=== PATIENT | female | born 1975 | race Caucasian/White ===

== ENCOUNTER → 2018-06-17 13:30 | Outpatient (CLI) | payer MEDICAID, SELFPAY | PROVIDERS: Visit Provider Student in an Organized Health Care Education/Training Program | DX: E03.9 Hypothyroidism, unspecified (principal) | CPT/HCPCS: 36415; 84443 ==

== ENCOUNTER → 2019-04-27 12:23 | Outpatient (CLI) | payer MEDICAID, SELFPAY ==
[2019-04-27 12:47] LABS: Basophils # 0.1 K/mm3 (0-0.2); Eosinophils # 0.1 K/mm3 (0.0-0.4); Eosinophils % 1.4 % (0.1-12.0); Hematocrit 47.8 % (37.0-47.0); Hemoglobin 15.8 g/dL (12.2-16.2); Lymphocytes % 40.1 % (10-50); Mean Corpuscular HGB Conc 33.2 g/dL (31.8-35.4); Mean Corpuscular Hemoglobin 28.5 pg (27.0-31.2); Mean Platelet Volume 8.4 fl (7.4-10.4); Monocytes # 0.3 K/mm3 (0.1-1.0); Monocytes % 4.2 % (1.7-9.3); Neutrophils # 3.9 K/mm3 (1.8-7.8); Neutrophils % 53.3 % (37.0-80.0); Platelet Count 299 K/mm3 (142-424); Red Blood Count 5.56 M/mm3 (4.20-5.40); Red Cell Distribution Width 13.3 % (11.5-17.5); White Blood Count 7.4 K/mm3 (4.8-10.8)
[2019-04-27 15:31] LABS: Albumin Level 4.1 gm/dL (3.4-5.0); Blood Urea Nitrogen 9 mg/dL (7-18); Creatinine,Serum 0.79 mg/dL (0.55-1.02); Estimated Glomerular Filt Rate 79 ml/min (>60); GFR (African American) 95 ML/MIN (>60); HDL Cholesterol 45 mg/dL (29-89); Potassium 3.7 mmoL/L (3.5-5.1); Sodium 140 mmol/L (136-145)
[2019-04-27 15:32] LABS: Triiodothryronine (T3) Uptake 38 % (31-39)
[2019-04-27 16:11] LABS: Alanine Aminotransferase 20 U/L (12-78); Albumin/Globulin Ratio 1.3 (1.1-1.8); Alkaline Phosphatase 55 U/L (46-116); Anion Gap 19.7 mEq/L (5-15); Aspartate Amino Transferase 18 U/L (15-37); Bilirubin,Total 0.8 mg/dL (0.2-1.0); Calcium 9.1 mg/dL (8.5-10.1); Carbon Dioxide 22 mmol/L (21.0-32.0); Chloride 102 mmol/L (98-107); Chol/HDL Ratio 6.8 (1-3.5); Cholesterol 305 mg/dL (140-200); Free Thyroxine Index 3.8 ug/dL (5.93-13.13); Globulin 3.2 gm/dl (1.3-3.2); Glucose 94 mg/dL (74-106); LDL Cholesterol 231 mg/dL (0-130); Total Protein,Serum 7.3 gm/dL (6.4-8.2); Triglycerides 146 mg/dL (30-200); VLDL Cholesterol 29 mg/dL (0-40)
[2019-04-28 18:19] LABS: Thyroid Peroxidase Antibodies 233 IU/mL (0-34); Vitamin D 25 Hydroxy 25.5 ng/mL (30.0-100.0)
[2019-04-30 12:33] LABS: Thyroid Stimulating Immunoglob <0.10 IU/L (0.00-0.55)
== END ==
PROVIDERS: Visit Provider Physician Assistant
DX: E06.9 Thyroiditis, unspecified (principal); E55.9 Vitamin D deficiency, unspecified
CPT/HCPCS: 36415; 80053; 80061; 82652; 84436; 84443; 84445; 84479; 85025; 86376

== ENCOUNTER 2022-03-20 00:20 | Emergency (ER) | payer MEDICAID, SELFPAY ==
[2022-03-20 00:33] VITALS: BP 195/115; PULSE 111; RESP 18; TEMP 36.6; O2SAT 98; BMI 34.0
[2022-03-20 01:03] LABS: Basophils # 0.1 K/mm3 (0-0.2); Basophils % 1.2 % (0.1-2.0); Eosinophils # 0.2 K/mm3 (0.0-0.4); Eosinophils % 1.5 % (0.1-12.0); Hematocrit 44.3 % (37.0-47.0); Hemoglobin 14.8 g/dL (12.2-16.2); Lymphocytes % 30.5 % (10-50); Mean Corpuscular HGB Conc 33.5 g/dL (31.8-35.4); Mean Corpuscular Hemoglobin 28.5 pg (27.0-31.2); Mean Corpuscular Volume 84.9 fl (81-99); Monocytes # 0.5 K/mm3 (0.1-1.0); Monocytes % 4.8 % (1.7-9.3); Neutrophils % 62.1 % (37.0-80.0); Platelet Count 325 K/mm3 (142-424); Red Blood Count 5.21 M/mm3 (4.20-5.40); Red Cell Distribution Width 13.9 % (11.5-17.5); White Blood Count 9.7 K/mm3 (4.8-10.8)
[2022-03-20 01:09] LABS: Alanine Aminotransferase 19 U/L (12-78); Albumin Level 4.6 g/dl (3.5-5.0); Albumin/Globulin Ratio 1.3 (1.1-1.8); Alkaline Phosphatase 74 U/L (38-126); Anion Gap 12.2 mEq/L (5-15); Aspartate Amino Transferase 25 U/L (14-36); Bilirubin,Total 0.4 mg/dl (0.2-1.3); Blood Urea Nitrogen 14 mg/dl (7-17); Calcium 9.8 mg/dl (8.4-10.2); Carbon Dioxide 24 mmol/L (22.0-30.0); Chloride 105 mmol/L (98-107); Creatinine Clearance Estimated 127 mL/min (50-200); Estimated Glomerular Filt Rate 89 ml/min (>60); GFR (African American) 108 ML/MIN (>60); Globulin 3.5 g/dL (1.3-3.2); Glucose 124 mg/dl (74-100); Potassium 3.2 mmoL/L (3.5-5.1); Sodium 138 mmol/L (136-145); Total Protein,Serum 8.1 g/dl (6.3-8.2)
--- NOTE | 2022-03-20 01:28 | HMH.EDDENT ---
Discharge Plan Disposition Patient Disposition: Home, Self-Care Prescriptions Prescriptions: New clindamycin HCl 300 mg capsule 300 mg PO TID Qty: 30 0RF Referrals Follow up/Referrals: Marisol Uribe MD [Primary Care Provider] - See instructions Clinical Impressions Clinical Impression: Gingival abscess, Pain, dental Instructions Patient Instructions: DI for Dental Pain Discharge ED Provider: Cristi Lee Dental HPI General Chief complaint: Dental/Oral Stated complaint: Panic Attack,toothache Time Seen by Provider: 03/20/22 01:28 Mode of Arrival: Ambulatory Source of Information: Patient and Medical Record Limitations: No Limitations Description of Symptoms (Recalled from ER Triage Doc. by RN): Pt arrives pov c c/o tooth pain in bottom right jaw for prior 2 days. Patient states that she has a history of dental caries and needs to have her teeth pulled but has severe anxiety about physicians and dentists. Patient also is c/o anxiety but states that that is typical for her when she goes to the hospital. History of Present Illness HPI Narrative: increased dental pain over the last few days with hx of sig dental issues Onset (ago): day(s) Duration: intermittent Severity: moderate Context: history of dental caries and poor dental care Related Data Previous Rx's Medication Instructions Recorded clindamycin HCl 300 mg capsule 300 mg PO TID #30 caps 03/20/22 Allergies Allergy/AdvReac Type Severity Reaction Status Date / Time Penicillins [PENICILLINS] Allergy Severe UNABLE TO Unverified 03/25/17 14:55 BREATH sulfamethoxazole AdvReac Verified 03/20/22 01:32 [From Bactrim] trimethoprim [From Bactrim] AdvReac Verified 03/20/22 01:32 [facility] Disclaimer: The information contained in this section may have been updated after the patient was seen, as this information can be updated by other users. Social History Smoking Status: Never smoker alcohol intake: never current occupational status: employed Travel in the last 8 weeks: None ROS Obtained: Yes All systems reviewed & no additional complaints except as documented Physical Exam General General appearance: alert Head Head exam: normocephalic Eye Eye exam: Present PERRL and EOMI Expanded ENT Exam Teeth exam: Present dental caries and gingival swelling Neck Neck exam: Present trachea midline Respiratory Respiratory exam: Absent respiratory distress Cardiovascular Cardiovascular exam: Present regular rate Extremities Exam Extremities exam: Present full ROM Neurological Exam Neurological exam: Present alert, oriented X3 and CN II-XII intact Psychiatric Psychiatric exam: Present normal affect Skin Skin exam: Absent rash Medical Decision Making Medical Records Medical records reviewed: Yes I reviewed the patient's medical records. Randy Inquiry Pt receiving controlled substance: No Vital Signs: 03/20/22 00:33 Temperature 98 F Temperature Source Oral Pulse Rate [Apical] 111 H Respiratory Rate 18 Blood Pressure [Right Arm] 195/115 H Blood Pressure Mean [Right Arm] 141 Blood Pressure Source [Right Arm] Automatic Cuff Blood Pressure Position [Right Arm] Sitting 02 Sat by Pulse Oximetry 98 Oxygen Delivery Method Room Air Lab Data Lab results reviewed: Yes I reviewed the patient's lab results. Lab Results 03/20/22 00:50: WBC 9.7, RBC 5.21, Hgb 14.8, Hct 44.3, MCV 84.9, MCH 28.5, MCHC 33.5, RDW 13.9, Plt Count 325, MPV 9.0, Neut % (Auto) 62.1, Lymph % (Auto) 30.5, [place] % (Auto) 4.8, Eos % (Auto) 1.5, Baso % (Auto) 1.2, Neut # (Auto) 6.0, Lymph # (Auto) 3.0, [place] # (Auto) 0.5, Eos # (Auto) 0.2, Baso # (Auto) 0.1 03/20/22 00:50: Sodium 138, Potassium 3.2 L, Chloride 105, Carbon Dioxide 24, Anion Gap 12.2, BUN 14, Creatinine 0.70, Estimated Creat Clear 127, Estimated GFR 89, Est GFR ( Amer) 108, Glucose 124 H, Calcium 9.8, Total Bilirubin 0.4, AST 25, ALT 19, Alkaline Phosphatase 74, Total
[2022-03-20 01:41] VITALS: BP 171/100; PULSE 105; RESP 18; TEMP 36.6; O2SAT 97
== END 2022-03-20 02:06 | disposition home or self-care (01) ==
PROVIDERS: Emergency Provider Emergency Medicine; PCP Family Medicine
DX: K08.89 Other specified disorders of teeth and supporting structures (principal); R68.84 Jaw pain; K06.1 Gingival enlargement; F41.9 Anxiety disorder, unspecified; F41.0 Panic disorder [episodic paroxysmal anxiety]; Z88.0 Allergy status to penicillin; Z88.2 Allergy status to sulfonamides; Z88.8 Allergy status to other drugs, medicaments and biological substances
CPT/HCPCS: 80053; 85025; 99283; J0696; J2405

== ENCOUNTER → 2022-04-12 11:23 | Outpatient (CLI) | payer MEDICAID, SELFPAY ==
[2022-04-12 12:33] LABS: Basophils # 0.2 K/mm3 (0-0.2); Basophils % 2.4 % (0.1-2.0); Eosinophils # 0.3 K/mm3 (0.0-0.4); Eosinophils % 3.8 % (0.1-12.0); Hematocrit 44.9 % (37.0-47.0); Hemoglobin 14.6 g/dL (12.2-16.2); Lymphocytes # 2.3 K/mm3 (0.7-4.5); Lymphocytes % 35.6 % (10-50); Mean Corpuscular HGB Conc 32.4 g/dL (31.8-35.4); Mean Corpuscular Hemoglobin 27.9 pg (27.0-31.2); Mean Platelet Volume 8.7 fl (7.4-10.4); Monocytes # 0.3 K/mm3 (0.1-1.0); Monocytes % 4.7 % (1.7-9.3); Neutrophils # 3.5 K/mm3 (1.8-7.8); Neutrophils % 53.5 % (37.0-80.0); Platelet Count 354 K/mm3 (142-424); Red Blood Count 5.23 M/mm3 (4.20-5.40); Red Cell Distribution Width 13.8 % (11.5-17.5); White Blood Count 6.5 K/mm3 (4.8-10.8)
[2022-04-12 12:58] LABS: Chloride 105 mmol/L (98-107); Potassium 4.2 mmoL/L (3.5-5.1); Sodium 140 mmol/L (136-145)
[2022-04-12 13:00] LABS: Alanine Aminotransferase 26 U/L (12-78); Alkaline Phosphatase 61 U/L (38-126); Aspartate Amino Transferase 24 U/L (14-36); Bilirubin,Total 0.6 mg/dl (0.2-1.3); Blood Urea Nitrogen 8 mg/dl (7-17); Estimated Glomerular Filt Rate 89 ml/min (>60); GFR (African American) 108 ML/MIN (>60)
[2022-04-12 13:01] LABS: Albumin Level 4.4 g/dl (3.5-5.0); Albumin/Globulin Ratio 1.3 (1.1-1.8); Anion Gap 13.2 mEq/L (5-15); Calcium 9.2 mg/dl (8.4-10.2); Carbon Dioxide 26 mmol/L (22.0-30.0); Chol/HDL Ratio 6.9 (1-3.5); Cholesterol 264 mg/dl (140-200); Globulin 3.3 g/dL (1.3-3.2); Glucose 92 mg/dl (74-100); HDL Cholesterol 38 mg/dl (40-60); Total Protein,Serum 7.7 g/dl (6.3-8.2); Triglycerides 238 mg/dl (30-150); VLDL Cholesterol 48 mg/dL (0-40)
[2022-04-12 13:12] LABS: Direct LDL Cholesterol 150.97 mg/dL (100-129)
[2022-04-12 13:18] LABS: T4 (Thyroxine) 9.8 ug/dl (5.53-11.0)
== END ==
PROVIDERS: PCP Family Medicine; Visit Provider Family Medicine
DX: E06.3 Autoimmune thyroiditis (principal); E78.5 Hyperlipidemia, unspecified
CPT/HCPCS: 36415; 80053; 80061; 84436; 85025

== ENCOUNTER → 2022-04-23 15:27 | Outpatient (CLI) | payer MEDICAID, SELFPAY ==
--- NOTE | 2022-04-23 15:33 | MM_ITS ---
PROCEDURE INFORMATION: Exam: MG Bilateral Screening 3D Mammography Exam date and time: 04/23/2022 4:07 PM Age: 47 years old Clinical indication: Screening examination TECHNIQUE: Imaging protocol: Bilateral Screening tomosynthesis and 2D mammography including computer-aided detection (CAD) when performed. COMPARISON: No relevant prior studies available. FINDINGS: MAMMOGRAPHY: Breast composition: The breasts are almost entirely fatty. Mass: None. Architectural distortion: None. Calcifications: No suspicious calcifications. Asymmetric density: None. Skin thickening: None. Axillary adenopathy: None. IMPRESSION: No mammographic evidence of malignancy. Annual screening is recommended unless otherwise clinically indicated. ASSESSMENT: BI-RADS Category 1: Negative
--- NOTE | 2022-04-23 15:34 | US_ITS ---
FINAL REPORT TECHNIQUE: Sonographic images of the thyroid gland were obtained in the longitudinal and transverse planes. CLINICAL HISTORY: AUTOIMMUNE THYROIDITIS, hx of lucas, FINDINGS: The right lobe measures 6.1 x 2.7 x 2.5 cm. The right lobe is enlarged and heterogeneous. There is a 1.1 cm nodule in the upper pole which is wider than it is tall, TI-RADS 4. There are several colloidal cysts. There is an isoechoic nodule deep within the inferior lobe measuring 2.6 cm. The left lobe measures 6.0 x 2.9 x 2.5 cm. The left lobe is diffusely heterogeneous with multiple small colloid cysts. There is a 1 cm hypoechoic nodule in the mid left lobe. The isthmus measures 5 mm. This is normal. There is a 6 mm hypoechoic nodule in the isthmus. IMPRESSION: Enlarged heterogeneous thyroid with bilateral TI-RADS 4 nodules. Base on size, follow-up is recommended. Reviewed, Interpreted and Dictated by Tresa Romo MD Transcribed by Velma Carias Authenticated and [facility]
== END ==
PROVIDERS: PCP Family Medicine; Visit Provider Family Medicine
DX: Z12.31 Encounter for screening mammogram for malignant neoplasm of breast (principal); E06.3 Autoimmune thyroiditis
CPT/HCPCS: 76536; 77063; 77067

== ENCOUNTER 2022-06-01 20:12 | Emergency (ER) | payer MEDICAID, SELFPAY ==
[2022-06-01] VITALS (7 sets, daily range): BP systolic 152–216; BP diastolic 87–132; PULSE 88–105; RESP 16–20; TEMP 36.8–36.9; O2SAT 97–100; BMI 29.2; BMI 34.0
[2022-06-01 20:27] LABS: Microscopic, Urine URINE MICROSCOPIC (MICROSCOPIC)
[2022-06-01 20:29] LABS: Appearance,Urine CLOUDY (Clear); Blood, Urine 3+ (Negative); Color,Urine RED (Yellow); Glucose,Urine (UA) Negative (Negative); Ketones,Urine TRACE (Negative); Leukocyte Esterase,Urine TRACE (Negative); Nitrate,Urine POSITIVE (Negative); PH,Urine 5.5 (5.0-8.5); Protein,Urine 1+ (Negative); Specific Gravity, Urine >= 1.030 (1.005-1.030)
[2022-06-01 20:30] LABS: Urine Pregnancy, HCG Qual. Negative (Negative)
[2022-06-01 20:32] LABS: Bilirubin,Urine Negative (Negative)
[2022-06-01 20:43] LABS: Basophils # 0.2 K/mm3 (0-0.2); Eosinophils # 0.2 K/mm3 (0.0-0.4); Eosinophils % 2.5 % (0.1-12.0); Hematocrit 43.2 % (37.0-47.0); Hemoglobin 14.8 g/dL (12.2-16.2); Lymphocytes % 44.5 % (10-50); Mean Corpuscular HGB Conc 34.2 g/dL (31.8-35.4); Mean Corpuscular Hemoglobin 28.6 pg (27.0-31.2); Mean Corpuscular Volume 83.5 fl (81-99); Mean Platelet Volume 8.3 fl (7.4-10.4); Monocytes # 0.3 K/mm3 (0.1-1.0); Monocytes % 3.6 % (1.7-9.3); Neutrophils # 4.2 K/mm3 (1.8-7.8); Neutrophils % 47.4 % (37.0-80.0); Platelet Count 371 K/mm3 (142-424); Red Blood Count 5.18 M/mm3 (4.20-5.40); Red Cell Distribution Width 14.1 % (11.5-17.5); White Blood Count 8.9 K/mm3 (4.8-10.8)
[2022-06-01 20:43] LABS: Bacteria,Urine 1+ /lpf; RBC,Urine TNTC #/hpf (0-3); Squamous Epithelial Cell,Urine Occasional #/hpf (0-5)
[2022-06-01 21:01] LABS: Alanine Aminotransferase 26 U/L (12-78); Albumin Level 4.7 g/dl (3.5-5.0); Albumin/Globulin Ratio 1.3 (1.1-1.8); Alkaline Phosphatase 58 U/L (38-126); Anion Gap 6.5 mEq/L (5-15); Aspartate Amino Transferase 30 U/L (14-36); Bilirubin,Total 0.6 mg/dl (0.2-1.3); Blood Urea Nitrogen 9 mg/dl (7-17); Calcium 9.1 mg/dl (8.4-10.2); Carbon Dioxide 25 mmol/L (22.0-30.0); Chloride 109 mmol/L (98-107); Creatinine Clearance Estimated 111 mL/min (50-200); Estimated Glomerular Filt Rate 77 ml/min (>60); GFR (African American) 93 ML/MIN (>60); Globulin 3.6 g/dL (1.3-3.2); Glucose 122 mg/dl (74-100); Potassium 3.5 mmoL/L (3.5-5.1); Sodium 137 mmol/L (136-145); Total Protein,Serum 8.3 g/dl (6.3-8.2)
--- NOTE | 2022-06-01 21:06 | HMH.EDUROGF ---
Discharge Plan Disposition Patient Disposition: Home, Self-Care Chief Complaint: Vaginal Bleeding Prescriptions Prescriptions: No Action clindamycin HCl 300 mg capsule 300 mg PO TID Qty: 30 0RF Referrals Follow up/Referrals: Marisol Uribe MD [Primary Care Provider] - See instructions Clinical Impressions Clinical Impression: Dysfunctional uterine bleeding Instructions Patient Instructions: DI for Vaginal Bleeding Discharge ED Provider: Rosa (ED),Cristi Garcia Female Urogenital HPI General Chief complaint: Vaginal Bleeding Stated complaint: Bleeding fr Vag Time Seen by Provider: 06/01/22 21:06 Mode of Arrival: Ambulatory Source of Information: Patient and Medical Record Limitations: No Limitations Description of Symptoms (Recalled from ER Triage Doc. by RN): Pt arrives to er via private vehicle c c/o vaginal bleeding. patient states that she was seen at on Friday for an elevated pulse and received a cardiac workup. At that time she states that she received a positive test. Patient states that she had baginal bleeding at that time and thought that she was menstrating. States that her had a vascectomy 4 years ago. Pt states that since then she has continued bleeding and has been passing clots. States that she passed a large clot 45 minutes ago and was afraid she was losing too much blood. History of Present Illness HPI Narrative: pt with vaginal bleeding - had recent visit to with pos preg test a few days ago- pt with no syncope - reports has elevated bp when in medical setting Complaint: vaginal bleeding Onset (ago): hour(s) Severity: moderate Duration: intermittent : Unknown Related Data Previous Rx's Medication Instructions Recorded clindamycin HCl 300 mg capsule 300 mg PO TID #30 caps 03/20/22 Allergies Allergy/AdvReac Type Severity Reaction Status Date / Time Penicillins [PENICILLINS] Allergy Severe UNABLE TO Verified 03/20/22 01:40 BREATH sulfamethoxazole AdvReac Verified 03/20/22 01:40 [From Bactrim] trimethoprim [From Bactrim] AdvReac Verified 03/20/22 01:40 [facility] Disclaimer: The information contained in this section may have been updated after the patient was seen, as this information can be updated by other users. Social History (Updated 03/20/22 @ 01:34 by Cristi Lee MD) Smoking Status: Never smoker alcohol intake: never current occupational status: employed Travel in the last 8 weeks: None ROS Obtained: Yes All systems reviewed & no additional complaints except as documented Physical Exam General General appearance: alert Head Head exam: normocephalic Eye Eye exam: Present PERRL and EOMI ENT ENT exam: Present mucous membranes moist Neck Neck exam: Present trachea midline Respiratory Respiratory exam: Absent respiratory distress Cardiovascular Cardiovascular exam: Present regular rate Abdominal Exam Abdominal exam: Present soft Extremities Exam Extremities exam: Present full ROM Neurological Exam Neurological exam: Present alert, oriented X3 and CN II-XII intact; Absent motor sensory deficit Psychiatric Psychiatric exam: Present normal affect Skin Skin exam: Absent rash Medical Decision Making Medical Records Medical records reviewed: Yes I reviewed the patient's medical records. Randy Inquiry Pt receiving controlled substance: No Vital Signs: 06/01/22 20:36 06/01/22 20:19 Temperature 98.3 F Temperature Source Oral Pulse Rate [Apical] 105 H Respiratory Rate 16 Blood Pressure [Orthostatic Lying Right Arm] 202/100 H Blood Pressure [Orthostatic Sitting] 216/132 H Blood Pressure [Orthostatic Standing] 204/115 H Blood Pressure [Right Arm] 204/115 H Blood Pressure Mean [Right Arm] 144 Blood Pressure Source [Right Arm] Manual Cuff/ Auscultation Blood Pressure Position [Right Arm] Sitting 02 Sat by Pulse Oximetry 98 Oxygen Delivery Method Room Air Lab Data La
[2022-06-01 21:12] LABS: HCG Qualitative, Serum Negative (Negative)
--- NOTE | 2022-06-01 21:21 | CT_ITS ---
PROCEDURE INFORMATION: Exam: CT Abdomen And Pelvis Without Contrast Exam date and time: 06/01/2022 9:43 PM Age: 47 years old Clinical indication: Other: Vaginal bleeding TECHNIQUE: Imaging protocol: Computed tomography of the abdomen and pelvis without contrast. Radiation optimization: All CT scans at this facility use at least one of these dose optimization techniques: automated exposure control; mA and/or kV adjustment per patient size (includes targeted exams where dose is matched to clinical indication); or iterative reconstruction. REPORTING DATA: Count of CT and Cardiac NM exams in prior 12 months: This patient has received 0 known CTs and 0 known cardiac nuclear medicine studies in the 12 months prior to the current study. COMPARISON: PTV US PELVIS-TRANSVAGINAL ONLY 02/22/2016 2:57 PM FINDINGS: Lungs: The lung bases are clear. No pleural effusion. Liver: Unremarkable. No mass. Gallbladder and bile ducts: Status post cholecystectomy. No ductal dilation. Pancreas: Unremarkable. Spleen: Multiple punctate scattered splenic calcifications. Adrenal glands: Unremarkable. Kidneys and ureters: Vague 1 cm rounded hypodensity of the right kidney, probable cyst. No renal mass or hydronephrosis. No urinary tract stone. Stomach and bowel: Unremarkable. No obstruction. No mucosal thickening. Appendix: The appendix is identified and is normal. Intraperitoneal space: No abnormal pelvic mass or fluid collection. decompressed and unremarkable. Retroperitoneal space: No bulky lymphadenopathy. Vasculature: Unremarkable. No abdominal aortic aneurysm. Lymph nodes: Unremarkable. No enlarged lymph nodes. Urinary bladder: The urinary bladder is Reproductive: The uterus is mildly enlarged and somewhat globular in appearance with smooth margins. Bones/joints: Unremarkable. No acute osseous abnormality. Soft tissues: Unremarkable. IMPRESSION: No acute findings. COMMENTS: Consistent with the [employer]'s Incidental Findings Committee white paper (J Am Kimmy Radiol 2018): Any incidental renal lesion less than 1 cm or classified as too small to characterize, or any incidental cystic renal lesion characterized as simple-appearing, is likely benign. No follow-up imaging is recommended for these lesions per consensus recommendations based on imaging criteria.
--- NOTE | 2022-06-01 21:28 | PC.NURSE ---
Radiology at bedside to take pt to CT scan, however she is now refusing to have the CT scan. Stating I just don't feel conformable to have the contrast right now and I will see my regular OB on Friday . notified.
[2022-06-01 21:29] LABS: HCG,Quantitative < 2 mIU/ml (0-5.42)
[2022-06-01 22:27] LABS: T4 (Thyroxine) 11.1 ug/dl (5.53-11.0)
[2022-06-01 22:41] LABS: Thyroid Stimulating Hormone 6.51 uIU/mL (0.465-4.68)
== END 2022-06-01 22:58 | disposition home or self-care (01) ==
PROVIDERS: Emergency Provider Emergency Medicine; PCP Family Medicine
DX: N93.9 Abnormal uterine and vaginal bleeding, unspecified (principal)
CPT/HCPCS: 74176; 80053; 81001; 81025; 84436; 84443; 84702; 84703; 85025; 99285

== ENCOUNTER 2024-05-25 09:00 | Outpatient (CLI) | payer MEDICAID, SELFPAY ==
[2024-05-25 10:13] LABS: Basophils # 0.1 K/mm3 (0-0.2); Basophils % 1.3 % (0.1-2.0); Eosinophils # 0.1 K/mm3 (0.0-0.4); Eosinophils % 2.2 % (0.1-12.0); Hematocrit 42.1 % (37.0-47.0); Hemoglobin 13.7 g/dL (12.2-16.2); Lymphocytes # 2.2 K/mm3 (0.7-4.5); Lymphocytes % 35.3 % (10-50); Mean Corpuscular HGB Conc 32.5 g/dL (31.8-35.4); Mean Corpuscular Hemoglobin 27.1 pg (27.0-31.2); Mean Corpuscular Volume 83.2 fl (81-99); Mean Platelet Volume 11.3 fl (7.4-10.4); Monocytes # 0.4 K/mm3 (0.1-1.0); Monocytes % 6.1 % (1.7-9.3); Neutrophils # 3.4 K/mm3 (1.8-7.8); Neutrophils % 54.6 % (37.0-80.0); Platelet Count 383 K/mm3 (142-424); Red Blood Count 5.06 M/mm3 (4.20-5.40); Red Cell Distribution Width 13.9 % (11.5-17.5); White Blood Count 6.3 K/mm3 (4.8-10.8)
[2024-05-25 10:32] LABS: Albumin Level 4.6 g/dl (3.5-5.0)
[2024-05-25 10:33] LABS: Chloride 102 mmol/L (98-107); Potassium 4.2 mmoL/L (3.5-5.1); Sodium 138 mmol/L (136-145)
[2024-05-25 10:35] LABS: Alanine Aminotransferase 23 U/L (12-78); Alkaline Phosphatase 67 U/L (38-126); Anion Gap 12.2 mEq/L (5-15); Aspartate Amino Transferase 27 U/L (14-36); Bilirubin,Total 0.4 mg/dl (0.2-1.3); Blood Urea Nitrogen 8 mg/dl (7-17); Carbon Dioxide 28 mmol/L (22.0-30.0); Estimated Glomerular Filt Rate 76 ml/min (>60); GFR (African American) 92 ML/MIN (>60)
[2024-05-25 10:36] LABS: Albumin/Globulin Ratio 1.5 (1.1-1.8); Calcium 9.6 mg/dl (8.4-10.2); Chol/HDL Ratio 8.3 (1-3.5); Cholesterol 291 mg/dl (140-200); Glucose 96 mg/dl (74-100); HDL Cholesterol 35 mg/dl (40-60); Iron 132 ug/dL (37-170); Total Protein,Serum 7.6 g/dl (6.3-8.2); Triglycerides 291 mg/dl (30-150); VLDL Cholesterol 58 mg/dL (0-40)
[2024-05-25 10:48] LABS: Direct LDL Cholesterol 180.58 mg/dL (100-129); Total Iron Binding Capacity 361 ug/dL (265-497)
[2024-05-25 10:56] LABS: Free T4 (Free Thyroxine) 0.95 ng/dl (0.78-2.19)
[2024-05-25 11:13] LABS: Ferritin 8.08 ng/ml (6.24-137)
[2024-05-25 15:15] LABS: Hemoglobin A1C 4.8 % (4.0-6.0)
[2024-05-26 08:13] LABS: Triiodothyronine (T3) Total 117 ng/dL (71-180)
== END 2024-05-25 23:59 | disposition home or self-care (01) ==
PROVIDERS: PCP Family Medicine Addiction Medicine; Visit Provider Family Medicine Addiction Medicine
DX: Z01.89 Encounter for other specified special examinations (principal); Z79.899 Other long term (current) drug therapy
CPT/HCPCS: 36415; 80053; 80061; 82728; 83036; 83540; 83550; 84439; 84443; 84480; 85025

== ENCOUNTER 2024-06-01 13:05 | Outpatient (CLI) | payer MEDICAID, SELFPAY ==
[2024-06-01 14:27] LABS: 25-OH Vitamin D, Total 35.9 ng/mL (30-100)
[2024-06-01 14:50] LABS: HIV Combo NEGATIVE (Negative)
[2024-06-01 15:00] LABS: Vitamin B12 400 pg/mL (239-931)
[2024-06-01 15:20] LABS: Folate > 20.00 ng/mL
[2024-06-09 11:18] LABS: Miscellaneous Test SCANNED IMAGE
== END 2024-06-01 23:59 | disposition home or self-care (01) ==
LOC: LAB 13:06
PROVIDERS: PCP Family Medicine Addiction Medicine; Visit Provider Family Medicine Addiction Medicine
DX: Z79.899 Other long term (current) drug therapy (principal); Z01.89 Encounter for other specified special examinations
CPT/HCPCS: 36415; 82306; 82607; 82746; 86704; 86706; 86708; 86803; 87340; 87389

== ENCOUNTER 2024-09-05 05:38 | Emergency (ER) | payer MEDICAID, SELFPAY ==
[2024-09-05 05:52] VITALS: BP 173/121; PULSE 117; RESP 20; TEMP 36.7; O2SAT 100; BMI 34.9
--- NOTE | 2024-09-05 05:53 | ED_ITS ---
Discharge Plan Disposition Patient Disposition: Home, Self-Care Condition: Good Prescriptions Prescriptions: New tranexamic acid 650 mg tablet 1,300 mg PO TID 5 Days Qty: 30 0RF No Action clindamycin HCl 300 mg capsule 300 mg PO TID Qty: 30 0RF Referrals Follow up/Referrals: lorrie [Other] - See instructions Flor Albert DO [Staff Physician, [employer]BLER] - See instructions Referral Note: 7cm uterine fibroid, heavy AUB Nikia Berry APRN [Primary Care Provider, Medical] - See instructions Activity Restrictions/Add. Instructions Additional Instructions/Restrictions: You were evaluated in the ER and are appropriate for discharge at this time. Take the prescribed tranexamic acid as directed. nursing support worker this medication as soon as it is ready and start taking it today. Call Dr. Albert's office first thing Friday and schedule an appointment for Friday. If they give you any pushback, tell them that Dr. Albert specifically wanted to see you on Friday to get scheduled for hysterectomy. They should be able to verify this with her. Continue monitoring your bleeding and return to the ER with any new, worsening, or otherwise concerning symptoms as discussed. 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 Patient reports for the last 2 years she has had issues with abnormal periods and they have been getting progressively worse. She states initially they started off just abnormal however they have progressed to being very heavy. She states her periods are so heavy that the first 2 days she usually has to stay home. She states they come every 28 days and usually last about 7 days, however her last period lasted 12 days and only ended approximately 2 weeks ago, her current period started 3 days ago. She states for the last 24 hours she has been saturating a super absorbent maxi pad at least once an hour. She is also passing large clots. She states she has been being followed by [facility] for this and had an ultrasound approximately 1 week ago demonstrated a large uterine fibroid. She states she was told to take 600 mg of ibuprofen 4 times a day during her.. She states she is doing that but it has not helped her bleeding. Patient also reports she is very anxious and is on the verge of having a panic attack. She states she is currently bleeding extremely heavy and is worried because she has been told she has been getting anemic from her bleeding. Patient has no recent symptoms of illness, no nausea, vomiting, or diarrhea, no dysuria, she has abdominal cramping especially before she passed a large clot but otherwise she has no other associated symptoms. Patient denies any recent rough sex or vaginal injury. She reports she believes her last Pap smear was a few months ago, she has never had a positive Pap smear. Related Data Previous Rx's ?Medication ?Instructions ?Recorded clindamycin HCl 300 mg capsule 300 mg PO TID #30 caps 03/20/22 tranexamic acid 650 mg tablet 1,300 mg (2 x 650 mg) PO TID 5 09/05/24 days #30 tabs Allergies Allergy/AdvReac Type Severity Reaction Status Date / Time Penicillins (PENICILLINS) Allergy Severe UNABLE TO Verified 03/20/22 01:40 BREATH sulfamethoxazole (From AdvReac Verified 03/20/22 01:40 Bactrim) trimethoprim (From Bactrim) AdvReac Verified 03/20/22 01:40 [facility] Disclaimer: The information contained in this section may have been updated after the patient was seen, as this information can be updated by other users. Social History (Updated 03/20/22 @ 01:34 by Cristi Lee MD) Smoking Status: Never smoker alcohol intake: never current occupational status: employed Travel in the last 8 weeks?: None Have you lived/traveled outside US in past 30 days?: No Contact w/someone who lives/traveled outside US past 30 days?: No Exposure to someone with infectious disease in past 14 days?: No Do you have a fever (greater than 100.4 F or 38 C)?: No Have you tested positive for COVID-19?: No Exposed to someone with COVID-19 in past 14 days?: No Do you have a sore throat?: No Do you have a cough?: No Do you have any weakness?: No Do you have any diarrhea?: No Are you experiencing any unusual bleeding?: No Do you have any muscle aches/pain?: No Do you have any abdominal pain?: No Are you experiencing loss of taste or smell?: No ROS Obtained: Yes Systems reviewed as appropriate & no additional complaints except as documented per HPI Physical Exam General General appearance: alert, in no apparent distress and obese Head Head exam: atraumatic and normocephalic Eye Eye exam: Present PERRL and EOMI ENT ENT exam: Present mucous membranes moist Neck Neck exam: Present normal inspection and full ROM Chest Chest inspection: Present symmetric chest wall rise Respiratory Respiratory exam: Present normal lung sounds bilaterally; Absent respiratory distress, wheezes or stridor Cardiovascular Cardiovascular exam: Present normal rhythm and tachycardia Abdominal Exam Abdominal exam: Present soft and tenderness (very mild low suprapubic); Absent distention, guarding or rebound External exam: Present normal external exam Speculum exam: Present vaginal bleeding (Pooling blood in the vaginal vault with clots) and other (No evidence of injury to the vagina cervix unremarkable though active bleeding limited visualization); Absent laceration Bimanual exam: Present normal bimanual exam Extremities Exam Extremities exam: Present full ROM Neurological Exam Neurological exam: Present alert and oriented X3; Absent motor sensory deficit Psychiatric Psychiatric exam: Present normal affect and normal mood Skin Skin exam: Present warm and dry Medical Decision Making Medical Records Medical records reviewed: Yes I reviewed the patient's medical records. Screening: Per USPSTF and CDC recommendations, given the prevalence of disease in our region, it is our hospital?s policy to screen for HIV and viral Hepatitis for all patients aged 18 and over and those with ongoing risk factors. MR Comment: Patient was seen in our ER in 2022 with dysfunctional uterine bleeding at that time after having been told she had a positive test at a different facility. hCG at that time was negative. Most recent labs from May 2024 do not demonstrate any evidence of anemia, iron studies reassuring. Randy Inquiry Pt receiving controlled substance: No Vital Signs: 09/05/24 05:52 09/05/24 06:00 09/05/24 06:46 Temperature 98.1 F Temperature Source Oral Pulse Rate 111 H 95 H Pulse Rate [Left] 117 H Respiratory Rate 20 Blood Pressure 168/102 H 176/94 H Blood Pressure [Right Arm] 173/121 H Blood Pressure Mean [Right Arm] 138 Blood Pressure Source [Right Arm] Automatic Cuff Blood Pressure Position [Right Arm] Supine 02 Sat by Pulse Oximetry 100 99 98 Oxygen Delivery Method Room Air Lab Data Lab Results 09/05/24 05:47: WBC 10.3, RBC 4.95, Hgb 13.6, Hct 41.2, MCV 83.2, MCH 27.5, MCHC 33.0, RDW 14.6, Plt Count 391, MPV 10.9 H, Neut % (Auto) 54.6, Lymph % (Auto) 35.9, [place] % (Auto) 6.1, Eos % (Auto) 2.2, Baso % (Auto) 0.9, Neut # (Auto) 5.6, Lymph # (Auto) 3.7, [place] # (Auto) 0.6, Eos # (Auto) 0.2, Baso # (Auto) 0.1, PT 10.6, INR 0.95, APTT 23.8, Sodium 139, Potassium 3.7, Chloride 107, Carbon Dioxide 25, Anion Gap 10.7, BUN 10, Creatinine 0.70, Estimated Creat Clear 127, Estimated GFR 89, Est GFR ( Amer) 107, Glucose 120 H, Calcium 9.6, Iron 41, TIBC 360, Iron Saturation 11.21686 L, Ferritin 11.4 D, Total Bilirubin 0.3, AST 23, ALT 21, Alkaline Phosphatase 65, Total Protein 7.9, Albumin 4.6, G lobulin 3.3 H, Albumin/Globulin Ratio 1.4, TSH 10.20 H, Free T4 0.87, Serum HCG, Qual Negative 09/05/24 06:27: Urine Color Red, Urine Appearance Cloudy, Urine pH 6.5, Ur Specific [place] <= 1.005, Urine Protein 2+ A, Urine Glucose (UA) Negative, Urine Ketones Trace, Urine Blood 3+ A, Urine Nitrate Positive A, Urine Bilirubin Negative, Urine Urobilinogen 1.0, Ur Leukocyte Esterase 1+ A, Urine RBC Tntc, Urine WBC 3-5, Ur Squamous Epith Cells 3-5, Amorphous Sediment 1+, Urine Bacteria 2+ 09/05/24 05:47 09/05/24 05:47 Orders (Tests/Meds): ORDERS Category Date Time Status Type and Screen Stat BBK 09/05/24 06:03 Results CBC w/Auto Diff [Complete Blood Count Auto Diff] Stat Lab 09/05/24 05:47 Completed CMP [Comprehensive Metabolic Panel] Stat Lab 09/05/24 05:47 Completed Ferritin Stat Lab 09/05/24 05:47 Completed Free T4 (Free Thyroxine) Stat Lab 09/05/24 05:47 Completed HCG Qualitative, Serum Stat Lab 09/05/24 05:47 Completed Iron and TIBC Stat Lab 09/05/24 05:47 Completed PT INR [Prothrombin Time INR] Stat Lab 09/05/24 05:47 Completed PTT [Activated Partial Thrombo Time] Stat Lab 09/05/24 05:47 Completed TSH [Thyroid Stimulating Hormone] Stat Lab 09/05/24 05:47 Completed Urinalysis and Microscopic Stat Lab 09/05/24 06:27 Completed Urine Culture Stat Micro 09/05/24 06:27 Received Medical Decision Narrative: In summary, this 49-year-old female with comorbidities described in the HPI which may not be at goal therapy presents to the emergency department today with heavy vaginal bleeding. On initial evaluation patient is mildly tachycardic but otherwise hemodynamically stable, afebrile, she has brisk capillary refill and 2+ pulses, no peripheral edema, very mild low suprapubic discomfort with palpation but no rebound or guarding, speculum exam demonstrates pooling blood in the vaginal vault with clots but unremarkable bimanual and cervical exam, remainder of exam benign. Differential diagnosis includes but is not limited to abnormal uterine bleeding, uterine fibroids, coagulopathy, anemia, iron deficiency, malignancy, among others. Ruling out the most morbid conditions drove my assessment. I ordered serum labs. I explained to the patient I want to obtain a CT abdomen pelvis for further evaluation of intra-abdominal contents, she reports she has had issues with contrast previously though she does not recall what they were. She was able to access her transvaginal ultrasound results from [facility] from 08/16/24. Results demonstrate large submucosal uterine fibroid at the posterior aspect measuring approximately 7 cm, endometrium 13 mm, unremarkable ovaries. Radiology report indicates that the fibroid is unchanged from imaging in April 2024. With these very recent transvaginal ultrasound results, I do not believe further imaging is indicated at this time. No medications were initially administered in the ER. Labs reviewed by me demonstrate no leukocytosis or anemia, hemoglobin 13.6, platelets normal at 391, PT/INR and APTT normal, CMP nonactionable, low iron saturation but normal TIBC, free T4 normal at 0.87, hCG negative, UA is nitrate positive, micro not consistent with findings of infection, contaminated with squamous cells, will not treat for UTI at this time. Patient admits to having whitecoat syndrome and her heart rate has improved some. It is now in the mid 80s to upper 90s at rest. She is not short of breath and remains hemodynamically stable and normotensive. I discussed this case with Dr. Albert who is on-call for OB. I discussed with her the results of the ultrasound performed at [facility] as well as patient's clinical findings here and lab results. Since the patient is currently hemodynamically stable and has normal hemoglobin and clotting factors and does not have any risk factors for clot such as history of thrombosis, hormone use, or smoking, she recommended oral TXA 1300 mg 3 times daily for 5 days. She also recommended that the patient be seen by her in office on Friday, 09/07 to be evaluated for hysterectomy. I discussed these recommendations with the patient, she is very grateful for this and comfortable with this plan. I prescribed oral TXA. Dr. Albert had specifically recommended against giving IV and oral so only oral was prescribed. Patient was instructed to knot picker cloth this medication and take it as directed immediately. She was advised per Dr. Albert's recommendations that this may take 1 to 2 days to slow her bleeding. I gave the patient instructions on continued close monitoring of her bleeding as well as monitoring of her symptoms in case she were to become symptomatically anemic. She was instructed on close follow-up with Dr. Albert. She was also given strict return precautions for the ER. She indicated understanding and the patient was discharged in stable condition. Critical Care Critical Care Time Critical Care Time: No
[2024-09-05 06:00] VITALS: BP 168/102; PULSE 111; O2SAT 99
[2024-09-05 06:09] LABS: Basophils # 0.1 K/mm3 (0-0.2); Basophils % 0.9 % (0.1-2.0); Eosinophils # 0.2 Kmm3 (0.0-0.4); Eosinophils % 2.2 % (0.1-12.0); Hematocrit 41.2 % (37.0-47.0); Hemoglobin 13.6 g/dL (12.2-16.2); Immature Granulocytes # 0.03 10^3uL; Immature Granulocytes % 0.3 %; Lymphocytes # 3.7 K/mm3 (0.7-4.5); Lymphocytes % 35.9 % (10-50); Mean Corpuscular Hemoglobin 27.5 pg (27.0-31.2); Mean Corpuscular Volume 83.2 fl (81-99); Mean Platelet Volume 10.9 fl (7.4-10.4); Monocytes # 0.6 K/mm3 (0.1-1.0); Monocytes % 6.1 % (1.7-9.3); Neutrophils # 5.6 K/mm3 (1.8-7.8); Neutrophils % 54.6 % (37.0-80.0); Nucleated Red Blood Cells # 0 10^3/uL; Nucleated Red Blood Cells % 0 %; Platelet Count 391 K/mm3 (142-424); Red Blood Count 4.95 M/mm3 (4.20-5.40); Red Cell Distribution Width 14.6 % (11.5-17.5); Red Cell Distribution Width-SD 43.8 fL; White Blood Count 10.3 K/mm3 (4.8-10.8)
[2024-09-05 06:18] LABS: Activated Partial Thrombo Time 23.8 seconds (22.8-30.6); INR 0.95 (0.9-1.1); Prothrombin Time 10.6 seconds (10.1-12.5)
[2024-09-05 06:20] LABS: Albumin Level 4.6 g/dl (3.5-5.0); Chloride 107 mmol/L (98-107); Potassium 3.7 mmoL/L (3.5-5.1); Sodium 139 mmol/L (136-145)
[2024-09-05 06:22] LABS: HCG Qualitative, Serum Negative (Negative)
[2024-09-05 06:23] LABS: Alanine Aminotransferase 21 U/L (12-78); Albumin/Globulin Ratio 1.4 (1.1-1.8); Alkaline Phosphatase 65 U/L (38-126); Anion Gap 10.7 mEq/L (5-15); Aspartate Amino Transferase 23 U/L (14-36); Bilirubin,Total 0.3 mg/dl (0.2-1.3); Blood Urea Nitrogen 10 mg/dl (7-17); Carbon Dioxide 25 mmol/L (22.0-30.0); Creatinine Clearance Estimated 127 mL/min (50-200); Estimated Glomerular Filt Rate 89 ml/min (>60); GFR (African American) 107 ML/MIN (>60); Globulin 3.3 g/dL (1.3-3.2); Iron 41 ug/dL (37-170); Total Protein,Serum 7.9 g/dl (6.3-8.2)
[2024-09-05 06:24] LABS: Calcium 9.6 mg/dl (8.4-10.2); Glucose 120 mg/dl (74-100)
[2024-09-05 06:33] LABS: Total Iron Binding Capacity 360 ug/dL (265-497)
[2024-09-05 06:34] LABS: Microscopic, Urine URINE MICROSCOPIC (MICROSCOPIC)
[2024-09-05 06:43] LABS: Free T4 (Free Thyroxine) 0.87 ng/dl (0.78-2.19)
[2024-09-05 06:46] VITALS: BP 176/94; PULSE 95; O2SAT 98
[2024-09-05 06:53] LABS: Appearance,Urine CLOUDY (Clear); Bilirubin,Urine Negative (Negative); Blood, Urine 3+ (Negative); Color,Urine RED (Yellow); Glucose,Urine (UA) Negative (Negative); Ketones,Urine TRACE (Negative); Leukocyte Esterase,Urine 1+ (Negative); Nitrate,Urine POSITIVE (Negative); PH,Urine 6.5 (5.0-8.5); Protein,Urine 2+ (Negative); Specific Gravity, Urine <= 1.005 (1.005-1.030)
[2024-09-05 07:01] LABS: Ferritin 11.4 ng/ml (6.24-137)
[2024-09-05 07:08] LABS: Amorphous Sediment,Urine 1+ /lpf; Bacteria,Urine 2+ /lpf; RBC,Urine TNTC #/hpf (0-3)
[2024-09-05 07:19] VITALS: BP 147/85; PULSE 85; RESP 16; TEMP 37
--- NOTE | 2024-09-08 09:52 | PC.NURSE ---
Urine culture results reviewed by Dr. Chew. No action needed at this time.
== END 2024-09-05 07:23 | disposition home or self-care (01) ==
PROVIDERS: Emergency Provider Emergency Medicine; PCP Family Medicine Addiction Medicine
DX: N93.9 Abnormal uterine and vaginal bleeding, unspecified (principal); D25.9 Leiomyoma of uterus, unspecified
CPT/HCPCS: 36415; 80053; 81001; 82728; 83540; 83550; 84439; 84443; 84703; 85025; 85610; 85730; 86850; 87086; 99283

== ENCOUNTER 2024-09-16 08:09 | Outpatient (CLI) | payer MEDICAID, SELFPAY ==
--- NOTE | 2024-09-16 08:00 | US_ITS ---
PROCEDURE: US TRANSVAGINAL CLINICAL INDICATION: Needs for AUB and cramping COMPARISON: CT CT ABDOMEN PELVIS WO CON from 06/01/2022 FINDINGS: Transvaginal sonographic images of the pelvis were obtained. UTERUS: 12.4cm x 9.3 cmx 9cm anteverted with a combined endometrial thickness of 11.8mm. There is a large posterior fibroid measuring 8.0 cm x 7.3 cm x 5.9 cm There are multiple small nabothian cysts within the cervix. LEFT OVARY: 2.2cmx1.1cmx1.6cm with a volume of 2ml. The left ovary was difficult to visualize. RIGHT OVARY: 3.0cmx 1.9 cmx2.5cm with a volume of 7.2ml. Right ovary was difficult to visualize. Both ovaries are seen and appear normal. Doppler flow to both ovaries are seen. There is no fluid in the cul-de-sac. IMPRESSION: 1. Anteverted uterus significantly enlarged by a posterior fibroid. The fibroid measures 8 cm in size. The endometrium is thickened measuring 11.8 mm. Suggest endometrial sampling. 2. Both ovaries are difficult to visualize but appear normal. 3. No fluid in the cul-de-sac. Dictated by: Otilio Hall MD 09/16/2024 12:05 Otilio Hall MD in OV 09/16/2024 12:05
--- OUTSIDE RECORDS SUMMARY | 2024-09-16 08:13 | XMS_ITS | Clinical Summary ---
Author Organization [facility] Address [address] [place] [address] Care Team Providers Care Manga Artist Name Role Phone Cristi Lee MD Primary Care Provider [phone] Allergies Active Allergy Reactions Criticality Noted Date Comments Penicillins Unknown - Patient st ates they do not know rxn details Low 10/16/2017 Sulfamethoxazole-Trimethopri m Unknown - Patient states they do not know rxn details Low 10/16/2017 Medications hydrOXYzine pamoate (Vistaril) 25 MG capsule Take 1 capsule (25 mg total) by mouth every night. 30 capsule 05/29/2022 Active Social History Tobacco Use Types Packs/Day Years Used Date Smoking Tobacco: Never Comments Unknown Sex and Gender Information Value Date Recorded Sex Assigned at Not on file Legal Sex Female 8:19 PM EDT Gender Identity Not on file Sexual Orientation Not on file Last Filed Vital Signs Vital Sign Reading Time Taken Comments Blood Pressure 160/89 05/29/2022 11:20 PM EST Pulse 86 05/29/2022 11:20 PM EST Temperature 36.7 C (98 F) 05/29/2022 11:20 PM EST Respiratory Rate 18 05/29/2022 11:20 PM EST Oxygen Saturation 99% 05/29/2022 11:20 PM EST Inhaled Oxygen Concentration - - Weight 83.7 kg (184 lb 8.4 oz) 06/26/2018 10:57 AM EDT Height 154.9 cm (5' 1 ) 06/26/2018 10:57 AM EDT Body Mass Index 34.87 06/26/2018 10:57 AM EDT Plan of Treatment Upcoming Encounters Date Type Department Care Team (Late st Contact Info) Description 10/07/2024 9:45 AM EDT Office Visit Obstetrics & Gynecology [address] [place] [address] Momo Valle MD [address] [place] [address] Health Maintenance Due Date Last Done Comments [facility]-Depression Screening 1974 [facility]-/Child/Adol SDOH Screenings 1974 [facility]- SDOH Screenings 02/13/1992 [facility]-Adult SDOH Screenings 02/13/1992 [facility]-DTaP,Tdap,and Td Vaccine s (1 - Tdap) 1993 [facility]-Hepatitis B Vaccines (1 of 3 - 19+ 3-dose series) 1993 [facility]-Pap Smear 1995 [facility]-Cervical Cancer Screening 02/13/2004 [facility]-HPV/Cotest 02/13/2004 CT Colonography 2019 Colonoscopy 2019 FIT-DNA 2019 FIT 2019 FOBT 2019 Sigmoidoscopy 2019 [facility]-Colorectal Cancer Screening 2019 [id number] Vaccine (1 - 20 24-25 season) 2023 [facility]-Breast Cancer Screening 02/13/2024 [facility]-Pneumococcal Vaccine: 50 + Years (1 of 1 - PCV) 02/13/2024 [facility]-Zoster Vaccines (1 of 2) 02/13/2024 [facility]-Influenza Vaccine (Seaso n Ended) 2024 [facility]-HIV Screening Completed 10/16/2017 [facility]-Hepatitis C Screening Completed 10/16/2017 HPV Vaccines Aged Out No longer eligi ble based on patient's age to complete this topic [facility]-HIB Vaccines Aged Out No longer e ligible based on patient's age to complete this topic [facility]-Hepatitis A Vaccines Aged Out No longer eligible based on patient's age to complete this topic [facility]-IPV Vaccines Aged Out No longer e ligible based on patient's age to complete this topic [facility]-Rotavirus Vaccines Aged Out No lo nger eligible based on patient's age to complete this topic Procedures Procedure Name Priority Date/Time Associated Diagnosis Comments HEPATITIS C ANTIBODY W/REFLEX TO HCV QUANT PCR Routine 10/16/2017 12:36 PM EDT HIV 1/2 ANTIBODY/ANTIGEN SCREEN WITH REFLEX TO HIV I/II DIFFERENTIATION Routine 10/16/2017 12:36 PM EDT from Last 3 Months or Most Recently Relevant to Health Maintenance Results * HIV 1 & 2 Antibody/Antigen Screen (10/16/2017 12:36 PM EDT) HIV 1 Result NONREACTIVE Screening for HIV 1 and 2 antibodies is NONREACTIVE. No confirmatory testing is required. SUNQUEST 10/16/2017 12:3 6 PM EDT 10/16/2017 6:08 PM EDT us Cande Morales MD LAB BLOOD ORDERABLES Final Re sult Performing Organization Address [facility] de Phone Number SUNQUEST * Hepatitis C Antibody (10/16/2017 12:36 PM EDT) Hepatitis C Antibody NEGATIVE Reference Range: Negative SUNQUEST 10/16/2017 12:3 6 PM EDT 10/16/2017 6:08 PM EDT us Cande Morales MD LAB BLOOD ORDERABLES Final Re sult Performing Organization Address [facility] Co de Phone Number SUNQUEST from Last 3 Months or Most Recently Relevant to Health Maintenance Insurance [facility] MEDICAID Care Teams Manga Artist Relationship Specialty Start Date End Date Cristi Lee MD [address] [place] [address] PCP - General 08/18/20
--- OUTSIDE RECORDS SUMMARY | 2024-09-16 08:15 | XMS_ITS | Clinical Summary ---
Author Organization [employer] Address [address] [place] [address] Care Team Providers Care Grocery Caddy Name Role Phone Marisol Uribe MD Primary Care Provider [phone] Allergies Active Allergy Reactions Criticality Noted Date Comments Penicillins 02/02/2016 Sulfamethoxazole-Trimethoprim 2015 Medications ALPRAZolam (XANAX) 0.25 MG tablet Take 0.25 mg by mouth daily as needed. 01/14/2022 Active escitalopram oxalate (LEXAPRO) 5 MG tablet Take 5 mg by mouth daily. 01/14/2022 Active Active Problems Problem Noted Date Diagnosed Date Anxiety 05/27/2022 Perimenopausal symptoms 05/27/2022 Benign essential hypertension 07/13/2020 Diffuse thyroid goiter without thyrotoxicosis Encounter for other screenin g for malignant neoplasm of breast 07/13/2020 Hyperlipidemia 07/13/2020 Obesity 07/13/2020 Vitamin D deficiency 02/04/2020 Resolved Problems Problem Noted Date Diagnosed Date Resolved Date Disease due to severe acute respiratory syndrome coronavirus 2 (SARS-CoV-2) 12/05/202005/09 Generalized pain 12/05/2020 05/27/2022 Otalgia, unspecified ear 12/05/2020 Dental caries 07/13/2020 05/27/2022 Generalized anxiety disorder 07/13/2020 05/27/2022 Disorder of thyroid 02/04/2020 05/27/19 Family History Medical History Relation Name Comments Thyroid cancer Father Breast cancer Maternal Grandmother Breast cancer Mother Thyroid cancer Paternal Grandfather Diabetes Paternal Grandmother Relation Name Status Comments Father Maternal Grandmother Mother Paternal Grandfather Paternal Grandmother Social History Tobacco Use Types Packs/Day Years Used Date Smoking Tobacco: Never Smokeless Tobacco: Never Alcohol Use Standard Drinks/Week Comments Never 0 (1 standard drink = 0.6 oz pur e alcohol) Interpersonal Safety Answer Date Record ed Family or friends hurt you Not on file 04/16 Family or friends insult you Not on file 01/2024 Family or friends threaten you Not on file 0 04/16/2023 Family or friends scream or curse at you Not on file 04/16/2023 Housing Stability Answer Date Recorded Living situation today Not on file Living situation problems Not on file 2023 Food Insecurity Answer Date Recorded Food run out past 12 months Not on file 04/07 Food did not last past 12 months Not on file 04/16/2023 Employment Answer Date Recorded Help finding and keeping a job Not on file 0 04/16/2023 Family and Community Support Answer Arnol e Recorded Help with Day to Day Activities Not on file 04/16/2023 Feeling Lonely or Isolated Not on file 04/16 Educational Attainment Answer Date Federico rded Speak language other than Kittitian at home Not on file 04/16/2023 Want help with school or training Not on file 04/16/2023 Depression Answer Date Recorded PHQ-2 Risk Not on file 04/16/2023 Disabilities Answer Date Recorded Difficulty concentrating Not on file 024 Difficulty doing errands alone Not on file 0 04/16/2023 Substance Use Answer Date Recorded Used prescription meds for non-medical reasons N ot on file 04/16/2023 Used illegal drugs past 12 months Not on file 04/16/2023 Comments Unknown Sex and Gender Information Value Date Recorded Sex Assigned at Not on file Legal Sex Female 7:11 PM CDT Gender Identity Not on file Sexual Orientation Not on file Plan of Treatment Health Maintenance Due Date Last Done Comments CT Colonography 1974 Colonoscopy 1974 Colorectal Cancer Screening 1974 FOBT/FIT 1974 Fit-DNA (Cologuard) 1974 Sigmoidoscopy 1974 Depression Screening (12+) 1986 HIV Screening 1989 Hepatitis C Screening 02/13/1992 DTAP/TDAP/TD VACCINES (1 - Tdap) 1993 Pap Smear 1995 Tobacco Cessation Counseling and Screening (12+) 05/2705/27/2022 COVID-19 VACCINE (1 - 2023- season) 2023 Pneumococcal 50+ years (1 of 1 - PCV) 02/13/2024 Shingles Vaccine (Zoster) (1 of 2) 02/13/2024 Breast Cancer Screening 04/23/2024 04/23/2022 Influenza Vaccine (Season Ended) 2024 Lipid Panel 07/16/2025 07/16/2022 Procedures Procedure Name Priority Date/Time Associated Diagnosis Comments LIPID PANEL Routine 07/16/2022 12:17 PM EDT Benign essential hypertension Hyperlipidemia, unspecified hyperlipidemia type Diffuse thyroid goiter without thyrotoxicosis MAMMOGRAPHY Routine 04/23/2022 from Last 3 Months or Most Recently Relevant to Health Maintenance Results * (ABNORMAL) Lipid panel (07/16/2022 12:17 PM EDT) Cholesterol, Total 242(H) 100 - 199 mg/dL [facility] Triglycerides 178(H) 0 - 149 mg/dL [facility] HDL Cholesterol 45 >39 mg/dL [facility] VLDL Cholesterol Stuart 33 5 - 40 mg/dL [facility] LDL Calculated 164(H) 0 - 99 mg/dL [facility] Blood 07/16/2022 12:1 7 PM EDT 07/16/2022 Narrative [facility] - 07/17/2022 4:06 AM EDT Performed at: 01 - [facility] [address] [id number] Consumer Insights Intern: Tommy Benjamin PhD, Phone: [phone] us Marisol Uribe MD LAB BLOOD ORDERABLES Final Res ult [facility] * HM MAMMOGRAPHY (04/23/2022) Anatomical Region Laterality Modality Other us Marisol Uribe MD HEALTH MAINTENANCE Final Resul t from Last 3 Months or Most Recently Relevant to Health Maintenance Insurance [facility] Care Teams Grocery Caddy Relationship Specialty Start Date End Date Marisol Uribe MD [address] [place] [address] PCP - General Family Medicine 03/14/22
[2024-09-16 10:09] LABS: Free T4 (Free Thyroxine) 1.02 ng/dl (0.78-2.19)
[2024-09-16 10:27] LABS: Iron 37 ug/dL (37-170)
[2024-09-16 10:28] LABS: Cholesterol 245 mg/dl (140-200); HDL Cholesterol 35 mg/dl (40-60); Triglycerides 236 mg/dl (30-150); VLDL Cholesterol 47 mg/dL (0-40)
[2024-09-16 10:39] LABS: Direct LDL Cholesterol 139.62 mg/dL (100-129)
[2024-09-16 10:40] LABS: Total Iron Binding Capacity 310 ug/dL (265-497)
[2024-09-16 11:00] LABS: Thyroid Stimulating Hormone 4.77 uIU/mL (0.465-4.68)
[2024-09-16 11:04] LABS: Ferritin 7.37 ng/ml (6.24-137)
[2024-09-17 08:32] LABS: FSH 11.5 mIU/mL (.); LH 29.6 mIU/mL (.)
[2024-09-21 15:11] LABS: Estrogen 272 pg/mL (.)
== END 2024-09-16 23:59 | disposition home or self-care (01) ==
PROVIDERS: PCP Family Medicine Addiction Medicine; Visit Provider Obstetrics & Gynecology
DX: N88.8 Other specified noninflammatory disorders of cervix uteri (principal); D25.9 Leiomyoma of uterus, unspecified; R93.89 Abnormal findings on diagnostic imaging of other specified body structures; N93.9 Abnormal uterine and vaginal bleeding, unspecified; N93.8 Other specified abnormal uterine and vaginal bleeding
CPT/HCPCS: 36415; 76830; 80061; 82672; 82728; 83001; 83002; 83540; 83550; 84144; 84439; 84443

== ENCOUNTER 2024-10-15 10:44 | Outpatient (CLI) | payer MEDICAID, SELFPAY ==
--- OUTSIDE RECORDS SUMMARY | 2024-10-15 10:50 | XMS_ITS | Referral Summary ---
Author Organization [employer] ([place], [place], [place], [place]) Address [address] [place] [address] Care Team Providers Care Diesel Lube Tech Name Role Phone Marisol Uribe MD Primary Care Provider [phone] Allergies Active Allergy Reactions Criticality Noted Date [...] severe acute respiratory syndrome coronavirus 2 (SARS-CoV-2) 12/05/20202 Generalized pain 12/05/2020 05/27/2022 Otalgia, unspecified ear 12/05/2020 Dental caries 07/13/2020 05/27/2022 Generalized anxiety disorder 07/13/2020 05/27/2022 Disorder of thyroid 02/04/2020 05/27/19 Social History Tobacco Use Types Packs/Day Years Used Date Smoking Tobacco: Never Smokeless Tobacco: Never Alcohol Use Standard Drinks/Week Comments Never 0 (1 standard drink = 0.6 oz pur e alcohol) Food Insecurity Answer Date Recorded Food run [...] Date Federico rded Speak language other than Albanian at home Not on file 04/16/2023 Want help with school or training Not on file 04/16/2023 Substance Use Answer Date Recorded Used prescription meds for non-medical reasons N ot on file 04/16/2023 Used illegal drugs past 12 months Not on file 04/16/2023 Comments Unknown Sex and Gender Information Value Date Recorded Sex Assigned at Not on file Legal Sex Female 7:11 PM CDT Gender Identity Not on file Sexual Orientation Not on file Plan of Treatment Not on file Procedures Procedure Name Priority Date/Time Associated Diagnosis Comments LIPID PANEL Routine 07/16/2022 12:17 PM EDT Benign essential hypertension Hyperlipidemia, unspecified hyperlipidemia type Diffuse thyroid goiter without thyrotoxicosis HM MAMMOGRAPHY Routine 04/23/2022 from Last 3 Months [...] - 07/17/2022 4:06 AM EDT Performed at: [address] [place] [id number] Catering Assistant: Tommy Benjamin PhD, Phone: [phone] us Marisol Uribe MD LAB BLOOD ORDERABLES Final Res ult [facility] * HM MAMMOGRAPHY (04/23/2022) Anatomical Region Laterality Modality Other us Marisol Uribe MD HEALTH MAINTENANCE Final Resul t from Last 3 Months or Most Recently Relevant to Health Maintenance Insurance [facility] Care Teams Diesel Lube Tech Relationship Specialty Start Date End Date Marisol Uribe MD [address] [facility] [address] [place] [id number] PCP - General Family Medicine 03/14/22
--- OUTSIDE RECORDS SUMMARY | 2024-10-15 10:50 | XMS_ITS | Clinical Summary ---
Author Organization [facility] Address [address] [place] [address] Care Team Providers Care Adult Manager Name Role Phone Cristi Lee MD Primary Care Provider [phone] Allergies Active Allergy Reactions Criticality Noted Date [...] 06/26/2018 10:57 AM EDT Plan of Treatment Health Maintenance Due Date [...] 2019 Sigmoidoscopy 2019 [facility]-Colorectal Cancer Screening 2019 [id number] Vaccine (1 - 20 24-25 season) 2023 [facility]-Breast Cancer Screening 02/13/2024 [facility]-Pneumococcal Vaccine: 50 + Years (1 of 1 - PCV) 02/13/2024 [facility]-Zoster Vaccines (1 of 2) 02/13/2024 [facility]-Influenza Vaccine (#1) 2024 [facility]-HIV Screening Completed 10/16/2017 [facility]-Hepatitis C [...] ORDERABLES Final Re sult Performing Organization Address City/State/[facility] Co de Phone Number [facility] * Hepatitis C Antibody (10/16/2017 12:36 PM EDT) Hepatitis C Antibody NEGATIVE Reference Range: Negative [facility] 10/16/2017 12:3 6 PM EDT 10/16/2017 6:08 PM EDT us Cande Morales MD LAB BLOOD ORDERABLES Final Re sult Performing Organization Address City/[facility] Co de Phone Number [facility] from Last 3 Months or Most Recently Relevant to Health Maintenance Insurance [facility] MEDICAID Care Teams Adult Manager Relationship Specialty Start Date End Date Cristi Lee MD [address] [place] [id number] PCP - General 08/18/20
--- OUTSIDE RECORDS SUMMARY | 2024-10-15 10:50 | XMS_ITS | Clinical Summary ---
Author Organization [employer] ([place], [place], [place], [place]) Address [address] [place] [address] Care Team Providers Care Filer Repairer Name Role Phone Marisol Uribe MD Primary Care Provider [phone] Allergies Active Allergy Reactions Criticality Noted Date [...] Date Federico rded Speak language other than Citizen Of [place] at home Not on file 04/16/2023 Want [...] Breast Cancer Screening 04/23/2024 04/23/2022 Influenza Vaccine (#1) 2024 Lipid Panel 07/16/2025 07/16/2022 Procedures Procedure Name Priority Date/Time Associated Diagnosis Comments LIPID PANEL Routine 07/16/2022 12:17 PM EDT Benign essential hypertension Hyperlipidemia, unspecified hyperlipidemia type Diffuse thyroid goiter without thyrotoxicosis MAMMOGRAPHY Routine 04/23/2022 from Last 3 Months or Most Recently Relevant to Health Maintenance Results * (ABNORMAL) Lipid panel (07/16/2022 12:17 PM EDT) Pathologist [facility] Cholesterol, Total 242(H) 100 - 199 mg/dL [facility] Triglycerides 178(H) 0 - 149 mg/dL [facility] HDL Cholesterol 45 >39 mg/dL [facility] VLDL Cholesterol Stuart 33 5 - 40 mg/dL [facility] LDL Calculated 164(H) 0 - 99 mg/dL [facility] Blood 07/16/2022 12:1 7 PM EDT 07/16/2022 Narrative [facility] - 07/17/2022 4:06 AM EDT Performed at: 01 - [facility] [address] [id number] Ceramic Worker: Tommy Benjamin PhD, Phone: [phone] Marisol Uribe MD LAB BLOOD ORDERABLES Final Res ult Performing Organization Address City/State/[facility] Co de Phone Number [facility] * HM MAMMOGRAPHY (04/23/2022) Anatomical Region Laterality Modality Other Marisol Uribe MD HEALTH MAINTENANCE Final Resul t from Last 3 Months or Most Recently Relevant to Health Maintenance Insurance [facility] Care Teams Filer Repairer Relationship Specialty Start Date End Date Marisol Uribe MD [address] [facility] [place] [address] PCP - General Family Medicine 03/14/22
[2024-10-15 11:30] LABS: Iron 106 ug/dL (37-170)
[2024-10-15 11:39] LABS: Total Iron Binding Capacity 311 ug/dL (265-497)
[2024-10-15 11:47] LABS: Free T4 (Free Thyroxine) 0.90 ng/dl (0.78-2.19)
[2024-10-15 12:02] LABS: Thyroid Stimulating Hormone 4.98 uIU/mL (0.465-4.68)
[2024-10-15 12:06] LABS: Ferritin 8.64 ng/ml (6.24-137)
== END 2024-10-15 23:59 | disposition home or self-care (01) ==
LOC: LAB 10:45
PROVIDERS: PCP Family Medicine Addiction Medicine; Visit Provider Family Medicine Addiction Medicine
DX: R79.89 Other specified abnormal findings of blood chemistry (principal)
CPT/HCPCS: 36415; 82728; 83540; 83550; 84439; 84443

== ENCOUNTER 2024-10-26 20:16 | Emergency (ER) | payer MEDICAID, SELFPAY ==
--- OUTSIDE RECORDS SUMMARY | 2016-02-08 09:15 | XMS_ITS | Encounter Summary ---
[facility] Address [address] [place] [address] Care Team Providers Care Dicer Machine Operator Name Role Phone Unavailable Primary Care Provider Unavailabl e Reason for Referral * Diagnostic Imaging (Routine) - Closed Specialty Diagnoses / Procedures Referred By Contac t Referred To Contact Radiology Diagnoses Threatened Procedures US Ob Transvaginal Sajan Rubi MD [address] [place] [address] Phone: tel: fax: [address] [address] Phone: tel: fax: Referral ID Status Reason Start Date Expiration Date Visits Re quested Visits Authorized [id number] Closed 02/05/2016 08/03/2016 1 1 Reason for Visit * Diagnostic Imaging (Routine) - Closed Specialty Diagnoses / Procedures Referred By Contac t Referred To Contact Radiology Diagnoses Threatened Procedures US Ob Transvaginal Sajan Rubi MD [address] [place] [address] Phone: tel: fax: [address] [address] Phone: tel: fax: Referral ID Status Reason Start Date Expiration Date Visits Re quested Visits Authorized [id number] Closed 02/05/2016 08/03/2016 1 1 Encounter Details Date Type Department Care Team (Latest Contact Info) Description 02/08/2016 9:15 AM EDT Hospital Encounter [facility] [phone] Threatened Social History Tobacco Use Types Packs/Day [...] Care Team (Late st Contact Info) Description 11/01/2024 2:50 PM EDT Office Visit [facility] OBGYN [address] [place] [address] Ginny Allen MD [address] [facility] [address] [place] [address] 03/09/2025 9:15 AM EST Office Visit [facility] ENDOCRINOLOGY [address] [place] [address] PacMarlee bartholomew, [address] [place], [place] [phone] documented as of this encounter Procedures Procedure Name Priority Date/Time Associated Diagnosis Comments US OB TRANSVAGINAL Routine 02/08/2016 9: 52 AM EDT Threatened documented in this encounter Results * US Ob Transvaginal (02/08/2016 9:52 AM EDT) Anatomical Region Laterality Modality Body Ultrasound 02/08/2016 9:35 AM EDT Narrative 02/08/2016 7:00 PM EDT PAT NAME: BRYNN CORRIGAN [facility] REC#: [id number] DA: [id number] PAT GEND: F PAT TYPE: O EXAM ERMELINDA: [id number] REF PHYS SAJAN RUBI Indication ======== Threatened [...] Uterus and ovaries are within normal limits. Bee Robber Comments Large nabothian cyst, measuring 23 x 22 x 16 mm. An anechoic area is present within the EMC, abnormally shaped for a gestational sac and appears empty. Impression ========= Probable Anembryonic gestation w/ blighted ovum, but an ectopic cannot be ruled out. Recommendation Follow-up as clinically indicated. Bee Robber: Kandice Hassan RDMS Physician: Didier Villalobos MD Electronically signed by: Didier Villalobos MD at: 19:00 Procedure Note Didier Villalobos MD - 02/08/2016 PAT NAME: BRYNN CORRIGAN [facility] REC#: [id number] DA: 1975 PAT GEND: F PAT TYPE: O EXAM ERMELINDA: [id number] REF PHYS SAJAN RUBI Indication ======== Threatened [...] Other:Uterus and ovaries are within normal limits. Bee Robber Comments Large nabothian cyst, measuring 23 x 22 x 16 mm. An anechoic area is present within the EMC, abnormally shaped for agestational sac and appears empty. Impression ========= Probable Anembryonic gestation w/ blighted ovum, but an ectopic pregnancycannot be ruled out. Recommendation Follow-up as clinically indicated. Bee Robber: Kandice Hassan RDMS Physician: Didier Villalobos MD Electronically signed by: Didier Villalobos MD at: 19:00 Sajan Rubi MD [facility] ORDERABLES Final Re sult documented in this encounter Visit Diagnoses Diagnosis Threatened documented in this encounter
--- OUTSIDE RECORDS SUMMARY | 2017-01-09 14:00 | XMS_ITS | Encounter Summary ---
Author Organization [facility] Address [address] [place] [address] Care Team Providers Care Marina Manager Name Role Phone Unavailable Primary Care Provider Unavailabl e Reason for Referral * Diagnostic Imaging (Routine) - Closed Specialty Diagnoses / Procedures Referred By Contac t Referred To Contact Radiology Diagnoses Enlarged uterus Procedures US Non-ob Transvaginal Sajan Rubi MD [address] [place] [address] Phone: tel: fax: [facility] Phone: tel: Referral ID Status Reason Start Date Expiration Date Visits Re quested Visits Authorized [id number] Closed 12/20/2016 12/20/2017 1 1 Reason for Visit * Diagnostic Imaging (Routine) - Closed Specialty Diagnoses / Procedures Referred By Contac t Referred To Contact Radiology Diagnoses Enlarged uterus Procedures US Non-ob Transvaginal Sajan Rubi MD [address] [place] [address] Phone: tel: fax: [facility] Phone: tel: Referral ID Status Reason Start Date Expiration Date Visits Re quested Visits Authorized [id number] Closed 12/20/2016 12/20/2017 1 1 Encounter Details Date Type Department Care Team (Latest Contact Info) Description 01/09/2017 2:00 PM EDT Hospital Encounter [facility] [phone] Enlarged uterus Social History Tobacco Use Types [...] Description 11/01/2024 2:50 PM EDT Office Visit [facility] OBGYN [address] [place] [address] Ginny Allen MD [address] [place] [address] 03/09/2025 9:15 AM EST Office Visit [facility] ENDOCRINOLOGY [address] [place] [address] Marlee Krishnan, DO [address] [place], [place] [id number] documented as of this encounter Procedures Procedure Name Priority Date/Time Associated Diagnosis Comments US NON-OB TRANSVAGINAL Routine 01/09/2017 3:06 PM EDT Enlarged uterus documented in this encounter Results * US Non-ob Transvaginal (01/09/2017 3:06 PM EDT) Anatomical Region Laterality Modality Body Ultrasound 01/09/2017 2:57 PM EDT Narrative 01/09/2017 6:42 PM EDT PAT NAME: BRYNN CORRIGAN MED REC#: [id number] DA: [id number] PAT GEND: F PAT TYPE: O EXAM ERMELINDA: [id number] REF PHYS SAJAN RUBI Indication ======== Enlarged [...] 10.8 cm Cul de Sac ========= Normal. Fulfillment Representative Comments Large nabothian cyst measuring 24 x 23 x 18 mm. Impression ========= The uterus is normal in size. Findings consistent with intramural fibroid(s). The endometrium appears sonographically normal in shape and appearance. Secretory appearing endometrium, consistent with stated menstrual history. Findings consistent with Nabothian cyst(s) of cervix. The ovaries appear sonographically normal in size, shape and morphology. Recommendation Follow-up as clinically indicated. Fulfillment Representative: Kandice Hassan RDMS Physician: Didier Villalobos MD Electronically signed by: Didier Villalobos MD at: 18:42 Procedure Note Didier Villalobos MD - 01/09/2017 PAT NAME: BRYNN CORRIGAN [facility] REC#: [id number] DA: [id number] PAT GEND: F PAT TYPE: O EXAM ERMELINDA: [id number] REF PHYS SAJAN RUBI Indication ======== Enlarged [...] vol10.8 cm Cul de Sac ========= Normal. Fulfillment Representative Comments Large nabothian cyst measuring 24 x 23 x 18 mm. Impression ========= The uterus is normal in size. Findings consistent with intramuralfibroid(s). The endometrium appears sonographically normal in shape and appearance. Secretory appearing endometrium, consistent with statedmenstrual history. Findings consistent with Nabothian cyst(s) of cervix. The ovaries appear sonographically normal in size, shape and morphology. Recommendation Follow-up as clinically indicated. Fulfillment Representative: Kandice Hassan RDMS Physician: Didier Villalobos MD Electronically signed by: Didier Villalobos MD at: 18:42 us Sajan Rubi MD IMG US ORDERABLES Final Re sult documented in this encounter Visit Diagnoses Diagnosis Enlarged uterus Hypertrophy of uterus documented in this encounter
--- OUTSIDE RECORDS SUMMARY | 2024-10-26 20:21 | XMS_ITS | Clinical Summary ---
Author Organization [facility] Address [address] [place] [address] Care Team Providers Care Pie Topper Name Role Phone Cristi Lee MD Primary Care Provider [phone] Allergies Active Allergy Reactions Criticality Noted Date [...] 2019 Sigmoidoscopy 2019 [facility]-Colorectal Cancer Screening 2019 [id number] Vaccine (1 - 20 24-25 season) 2023 [...] ORDERABLES Final Re sult Performing Organization Address City/State/[facility] Co de Phone Number [facility]QUEST * Hepatitis C Antibody (10/16/2017 12:36 PM EDT) Hepatitis C Antibody NEGATIVE Reference Range: Negative [facility] 10/16/2017 12:3 6 PM EDT 10/16/2017 6:08 PM EDT us Cande Morales MD LAB BLOOD ORDERABLES Final Re sult Performing Organization Address City/[facility] Co de Phone Number [facility]QUEST from Last 3 Months or Most Recently Relevant to Health Maintenance Insurance [facility] MEDICAID Care Teams Pie Topper Relationship Specialty Start Date End Date Cristi Lee MD [address] [place] [id number] PCP - General 08/18/20
--- OUTSIDE RECORDS SUMMARY | 2024-10-26 20:21 | XMS_ITS | Referral Summary ---
Author Organization [employer] ([place], [place], [place], [place]) Address [address] [place] [address] Care Team Providers Care Matlab Developer Name Role Phone Marisol Uribe MD Primary Care Provider [phone] Allergies Active Allergy Reactions Criticality Noted Date [...] Date Federico rded Speak language other than Nigerian at home Not on file 04/16/2023 Want [...] - 07/17/2022 4:06 AM EDT Performed at: [address] [place] [id number] Retail Support Manager: Tommy Benjamin PhD, Phone: [phone] us Marisol Uribe MD LAB BLOOD ORDERABLES Final Res ult [facility] * HM MAMMOGRAPHY (04/23/2022) Anatomical Region Laterality Modality Other us Marisol Uribe MD HEALTH MAINTENANCE Final Resul t from Last 3 Months or Most Recently Relevant to Health Maintenance Insurance [facility] Care Teams Matlab Developer Relationship Specialty Start Date End Date Marisol Uribe MD [address] [facility] [address] [place] [id number] PCP - General Family Medicine 03/14/22
--- OUTSIDE RECORDS SUMMARY | 2024-10-26 20:21 | XMS_ITS | Encounter Summary ---
[facility] Address [address] [place] [address] Care Team Providers Care Water Gas Operator Name Role Phone Nikia Berry APRN Primary Care Provider [phone] Reason for Visit * Reason Onset Date Comments DR. KATRINA PA SAME DAY 09/27/2024 Encounter Details Date Type Department Care Team (Late st Contact Info) Description 09/27/2024 Telephone [facility] OBGYN [address] [facility] [address] [place] [address] Ginny Allen MD [address] [facility] [address] [place] [address] DR. KATRINA PA SAME DAY Social History Tobacco Use Types Packs/Day Years [...] on file documented as of this encounter Miscellaneous Notes * Telephone Encounter - Alexandra Carlson RegSched Rep - 09/27/2024 9:13 AM EDT Caller: BRYNN SINGH Relationship: SELF Best call back number: [phone] PATIENT CALLED REQUESTING TO CANCEL SAME DAY APPT. Did the patient call AFTER the start time of their scheduled appointment? []YES [x]NO Was the patient's appointment rescheduled? [x]YES []NO Any additional information: PT UNABLE TO MAKE TODAYS APPT DUE TO NOT HAVE A SOMEONE TO WATCH HER SON - OKAYED BY THE OFFICE TO RESCHEDULE FOR FIRST AVAILABLE. documented in this encounter Plan of Treatment Upcoming Encounters Date Type Department Care Team (Late st Contact Info) Description 11/01/2024 2:50 PM EDT Office Visit [facility] OBGYN [address] [place] [address] Ginny Allen MD [address] [place] [address] 03/09/2025 9:15 AM EST Office Visit [facility] ENDOCRINOLOGY [address] [place] [phone] Marlee Krishnan, DO [address] [place] [address] documented as of this encounter Visit Diagnoses Not on filedocumented in this encounter Care Teams Water Gas Operator Relationship Specialty Start Date End Date Nikia Berry APRN [address] [place] [address] PCP - General Nurse Practitioner 06/01/24 documented as of this encounter
--- OUTSIDE RECORDS SUMMARY | 2024-10-26 20:21 | XMS_ITS | Encounter Summary ---
[facility] Organization [facility] Address [address] [place] [id number] Care Team Providers Care Teletypist Name Role Phone Nikia Berry APRN Primary Care Provider [phone] Reason for Visit * Reason Onset Date Comments DR. HERNDON - MEDICAL CONCERN 10/26/2024 Encounter Details Date Type Department Care Team (Late st Contact Info) Description 10/26/2024 Telephone [facility] OBGYN [address] [address] Ginny Herndon MD [address] [facility] [address] [place] [address] DR. HERNDON - MEDICAL CONCERN Social History Tobacco Use Types Packs/Day Years [...] encounter Miscellaneous Notes * Telephone Encounter - Stefani Hernández RN - 10/26/2024 3:[address] PM EDT Patient of Dr. Herndon; ALEM 08/16/24 with menorrhagia, AUB, and stable large uterine fibroid. NOV 11/01/24 for EMB. Returned patient's call. Started her period yesterday. Reports today she is having large gushes of blood with clots in the toilet about every 1-2 hours; she can feel it coming and rushed to the bathroom. Only has spotting onpad between bathroom trips. States she was not able to take Provera because it caused headaches. She is concerned about heavier bleeding because her ferritin level is already low. Asking if she can be seen sooner than 11/01/24. States she would like to have a uterine ablation. Offered appointment with Dr. Herndon 10/28/24 in [place] office. Patient declined; prefers to keep appointment 11/01/24. States she expects the bleeding to lessen by then. Instructed to go to ER if saturating a pad or tampon every 30-60 minutes, passing clots golf ball size or larger, severe pain, feeling dizzy or lightheaded, SOA, or having chest pain. Patient v/u andagreed. * Telephone Encounter - Mary Grace Pathak RegSched Rep - 10/26/2024 12:06 PM EDT Caller: Brynn Singh Relationship: SELF Best call back number: [phone] What is your medical concern? HEAVY BLEEDING - HAS BEEN WORKING WITH DR. HERNDON ON HER FERITIN LEVELS AND SHE IS AFRAID THIS BLEEDING WILL CAUSE ISSUES - WOULD LIKE TO BE SEEN SOON POSSIBLE How long has this issue been going on? ON-GOING Is your provider already aware of this issue? NOT THE CURRENT EPISODE Have you been treated for this issue? NO PLEASE CALL PT TO ADVISE / DISCUSS documented in this encounter Plan of Treatment Upcoming Encounters Date Type Department Care Team (Late st Contact Info) Description 11/01/2024 2:50 PM EDT Office Visit [facility] OBGYN [address] [place] [address] Ginny Herndon MD [address] [facility] [address] [place] [address] 03/09/2025 9:15 AM EST Office Visit [facility]CRINOLOGY [address] [facility] [address] [place] [phone] Marlee Krishnan, DO [address] [facility] [address] [place], [place] [address] documented as of this encounter Visit Diagnoses Not on filedocumented in this encounter Care Teams Teletypist Relationship Specialty Start Date End Date Nikia Berry APRN [address] [place], [place] [address] [address] PCP - General Nurse Practitioner 06/01/24 documented as of this encounter
--- OUTSIDE RECORDS SUMMARY | 2024-10-26 20:21 | XMS_ITS | Encounter Summary ---
Author Organization [facility] Address [address] [place] [id number] Care Team Providers Care Editor In Chief Newspaper Name Role Phone Nikia Berry APRN Primary Care Provider [phone] Encounter Details Date Type Department Care Team (Late st Contact Info) Description 09/07/2024 Telephone [facility] ENDOCRINOLOGY [address] [place] [address] Marlee Krishnan, [address] [place] [address] Social History Tobacco Use Types Packs/Day Years [...] encounter Miscellaneous Notes * Telephone Encounter - Joanne Diaz MA - 09/08/2024 9:33 AM EDT Patient notified and verbalized understanding. * Telephone Encounter - Tabitha Hammonds - 09/07/2024 2:50 PM EDT Pt called to say that she was in the er about 2 days ago and her thyroid is dropping They should of sent us the records Pts number [phone] documented in this encounter Plan of Treatment Upcoming Encounters Date Type Department Care Team (Late st Contact Info) Description 11/01/2024 2:50 PM EDT Office Visit [facility] OBGYN [address] [place] [address] Ginny Allen MD [address] [facility] [address] [place] [address] 03/09/2025 9:15 AM EST Office Visit [facility] ENDOCRINOLOGY [address] [place] [phone] Marlee Krishnan, DO [address] [place] [address] documented as of this encounter Visit Diagnoses Not on filedocumented in this encounter Care Teams Editor In Chief Newspaper Relationship Specialty Start Date End Date Nikia Berry APRN [address] [place], [place] [address] [address] PCP - General Nurse Practitioner 06/01/24 documented as of this encounter
--- OUTSIDE RECORDS SUMMARY | 2024-10-26 20:21 | XMS_ITS | Encounter Summary ---
[facility] Organization [facility] Address [address] [place] [id number] Care Team Providers Care Mental Health Counselor Name Role Phone Nikia Berry APRN Primary Care Provider [phone] Encounter Details Date Type Department Care Team (Late st Contact Info) Description 09/22/2024 Telephone [facility] ENDOCRINOLOGY [address] [place] [address] Marlee Krishnan DO [address] [facility] [address] [place] [address] Social History Tobacco Use Types [...] Telephone Encounter - Joanne Diaz MA - 09/23/2024 10:52 AM EDT Patient notified and verbalized understanding. * Telephone Encounter - Marlee Krishnan DO - 09/23/2024 10:36 AM EDT She can try going off of the med for 4-5 weeks, recheck levels at 5 weeks. However, if TSH is again> 10, medication will be needed. * Telephone Encounter - Joanne Diaz MA - 09/23/2024 9:52 AM EDT Patient notified. She states that she wonders if the TSH on 09/07/2024 was incorrect. States 1-2 weeks prior to that, it was 4. Wants to know if Dr. Krishnan would be okay if she stopped the medicine for a couple of weeks and then have labs repeated. * Telephone Encounter - Marlee Krishnan DO - 09/22/2024 5:13 PM EDT I have not heard of this side effect to unithroid. Option to try to change to tirosint capsules if she would like? Cost likely high/higher though. * Telephone Encounter - Ambika Jung - 09/22/2024 3:30 PM EDT PATIENT HAS QUESTIONS ABOUT SIDE AFFECTS OF UNITHYROID. SHE HAS BEEN HAVING ISSUES OF DREAMING A LOT AND HAVING HALLUCINATIONS WHILE SLEEPING. SHE IS NOT SURE IF THIS IS CAUSING THIS TO HAPPEN WHILE SLEEPING. THIS STARTED A WEEK AFTER STARTING THIS MEDICATION. PHONE NUMBER IS [phone] documented in this encounter Plan of Treatment Upcoming Encounters Date Type Department Care Team (Late st Contact Info) Description 11/01/2024 2:50 PM EDT Office Visit [facility] OBGYN [address] [place] [address] Ginny Allen MD [address] [facility] [address] [place] [address] 03/09/2025 9:15 AM EST Office Visit [facility] ENDOCRINOLOGY [address] [facility] [address] [place] [phone] Marlee Krishnan, [address] [facility] [address] [place] [address] documented as of this encounter Visit Diagnoses Not on filedocumented in this encounter Care Teams Mental Health Counselor Relationship Specialty Start Date End Date Nikia Berry APRN [address] [place], [place] [id number] PCP - General Nurse Practitioner 06/01/24 documented as of this encounter
--- OUTSIDE RECORDS SUMMARY | 2024-10-26 20:21 | XMS_ITS | Encounter Summary ---
Author Organization [facility] Address [address] [place] [id number] Care Team Providers Care Manager Park Name Role Phone Nikia Berry APRN Primary Care Provider [phone] [phone] Reason for Visit * Reason Onset Date Comments DR.WELLS Madalyn ROSADO 10/14/2024 Encounter Details Date Type Department Care Team (Late st Contact Info) Description 10/14/2024 Telephone [facility] OBGYN [address] [address] Ginny Allen MD 1700 [facility] [address] [place] [address] DR.WELLS Madalyn ROSADO Social History Tobacco Use Types Packs/Day Years [...] encounter Miscellaneous Notes * Telephone Encounter - Linda Macedo MA - 10/14/2024 12:55 PM EDT Called patient back answered questions * Telephone Encounter - Jagruti Bojorquez RegSched Rep - 10/14/2024 11:22 AM EDT Caller: Brynn Singh Relationship: Self Best call back number: [phone] Who are you requesting to speak with (clinical staff, provider, specific staff member): CLINICAL What was the call regarding: PT HAS QUESTIONS PRIOR TO HER APPT ON 11/01 documented in this encounter Plan of Treatment Upcoming Encounters Date Type Department Care Team (Late st Contact Info) Description 11/01/2024 2:50 PM EDT Office Visit [facility] OBGYN [address] [place] [phone] Ginny Allen MD 1700 [facility] [address] [place] [address] 03/09/2025 9:15 AM EST Office Visit [facility] ENDOCRINOLOGY [address] [place] [address] PacMarlee bartholomew, DO [address] [place] [address] documented as of this encounter Visit Diagnoses Not on filedocumented in this encounter Care Teams Manager Park Relationship Specialty Start Date End Date Nikia Berry APRN [address] [place] [address] Mauri [place], [place] [id number] PCP - General Nurse Practitioner 06/01/24 documented as of this encounter
--- OUTSIDE RECORDS SUMMARY | 2024-10-26 20:21 | XMS_ITS | Encounter Summary ---
Author Organization [facility] Address [address] [place] [id number] Care Team Providers Care Central Office Supervisor Name Role Phone Nikia Berry APRN Primary Care Provider [phone] [phone] Reason for Visit * Reason Onset Date Comments - MEDICATION 09/01/2024 Encounter Details Date Type Department Care Team (Late st Contact Info) Description 09/01/2024 Telephone [facility] OBGYN [address] [address] Ginny Allen MD 1700 [place] [id number] - MEDICATION Social History Tobacco Use Types Packs/Day Years [...] Miscellaneous Notes * Telephone Encounter - Alexandra Mcgill MA - 09/02/2024 3:51 PM EDT Returned patient call- reviewed message from Leodan. Patient voiced understanding. She wants to continue with medication as is for now, and will call back if no improvement or issues worsen. * Telephone Encounter - Ginny Allen MD - 09/02/2024 1:52 PM EDT We can try a different form of progesterone. I think what she means by more natural cream would be a compounded P, if so that would likely not be a strong enough form to control her cycles. HRT forms will not usually help control cycles, so often will make bleeding worse. Since she's still havingregular cycles, she will likely need something to control the cycles vs what is used in HRT for endometrial protection. * Telephone Encounter - Alexandra Mcgill MA - 09/01/2024 1:14 PM EDT Returned patient call- she reports having significant headaches starting 1 week following start of provera. She also reports that her blood pressues have increases slightly to the 140s/80s range. Shewould like to discuss alternate options, and wanted to ask about the more natural cream as well. Reviewed with patient that YariAlejandro is not in office today, but would discuss with her once back. Shevoiced understanding. Per last note, PT with menorrhagia with regular cycle, has not tried anything at this point. U/S today shows stable large fibroid, submucosal vs intramural. Ovaries normal. Pt declines EMB today, will return for this. Treatment options d/w pt in detail. She desires trial of cyclic provera. We will treat with daily provera x 30 d then cyclic. Will continue till amenorrhea x 1 year. Call with AUB. * Telephone Encounter - Jagruti Bojorquez RegSched Rep - 09/01/2024 12:39 PM EDT Caller: Brynn Singh Relationship: Self Best call back number: [phone] What was the call regarding: PT WOULD LIKE TO KNOW IF THERE IS A CREAM MEDICATION TO USE INSTEAD OFBIRTH CONTROL SINCE STARTING THE CONTROL PT HAS BEEN EXPERIENCING HIGH BP AND HEADACHE documented in this encounter Plan of Treatment Upcoming Encounters Date Type Department Care Team (Late st Contact Info) Description 11/01/2024 2:50 PM EDT Office Visit [facility] OBGYN [address] [place] [address] Ginny Allen MD 1700 [facility] [address] [place] [address] 03/09/2025 9:15 AM EST Office Visit [facility] ENDOCRINOLOGY [address] [place] [address] Marlee Krishnan, DO [address] [place] [address] documented as of this encounter Visit Diagnoses Not on filedocumented in this encounter Care Teams Central Office Supervisor Relationship Specialty Start Date End Date Nikia Berry APRN [address] [place], [place] [phone] PCP - General Nurse Practitioner 06/01/24 documented as of this encounter
--- OUTSIDE RECORDS SUMMARY | 2024-10-26 20:23 | XMS_ITS | Clinical Summary ---
Author Organization [facility] Address [address] [place] [address] Care Team Providers Care Haulpak Driver Name Role Phone Nikia Berry APRN Primary Care Provider +1 [phone] Allergies Active Allergy Reactions Criticality Noted Date Comments Sulfamethoxazole-Trimethoprim 2015 Penicillins 02/02/2016 Medications multivitamin with minerals (MULTIVITAMIN ADULT PO) Take 1 tablet by mouth Daily. Active ferrous sulfate 325 (65 Fe) MG tablet Take by mouth. Active norethindrone (MICRONOR) 0.35 MG tabletIndication s:Menorrhagia with regular cycle Take 1 tablet by mouth Daily. 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 30 tablet 4 09/08/2024 Active Active Problems Problem Noted Date Diagnosed Date Menorrhagia with regular cycle 12/26/2022 Overview (12/26/2022): Repeat U/S 12/26/22 reveals stable uterine fibroids, endometrium on CD 18 was 13 mm and homogenous which is improved from previous U/S. Provera did not improve her bleeding. An EMB was attempted but not tolerated by the patient. Options for management were discussed including lysteda, POP, IUD, and surgical intervention including the sonata treatment. She opts for slynd for now. F/U 6 months and prn. 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 OBGYN [address] [facility] [address] [place] [address] WELLS - MEDICAL CONCERN 10/14/[address] [facility] OBGYN [address] [facility] [address] [place] [address] MD [address]WELLS - CALLBACK 09/27/[address] [facility] OBGYN 1700 [facility] [address] [place] [address] WELLS - CANCEL SAME DAY 09/22/[address] [facility] ENDOCRINOLOGY [address] [facility] [address] [place] [address] Marlee Krishnan, DO 09/07/[address] [facility] ENDOCRINOLOGY [address] [facility] [address] [place] [address] Marlee Krishnan, DO 09/01/[address] [facility] OBGYN [address] [facility] [address] [place] [address] MD [address]WELLS - MEDICATION 08/19/2024 10:15 AM EDT Office Visit 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 ENDOCRINOLOGY [address] [address] Marlee Krishnan, Unithroid Approval 08/19/2024 Travel 08/17/[address] [facility] OBGYN [address] [facility] [address] [place] [address] Ginny Herndon MD REQ BLOOD WORK ORDERS 08/16/2024 2:00 PM EDT Ancillary Procedure [facility] OBGYN [address] [place] [address] Abnormal uterine bleeding (AUB) 08/16/2024 10:45 AM EDT Office Visit [facility] OBGYN [address] [place] [address] Ginny Herndon MD Abnormal uterine bleeding (AUB) (Primary Dx); Intramural leiomyoma of uterus; Dysmenorrhea; Menorrhagia with regular cycle 08/16/2024 Travel 08/12/[address] [facility] OBGYN [address] [place] [address] Radha Pitts APRN REQUESTING APPT FOR 08/13 from Last 3 Months Family History Medical History Relation Name Comments No Known Problems Brother Thyroid cancer Father Breast cancer Maternal Grandmother Caprice don Breast cancer Mother Ovarian cancer Neg Hx Relation Name Status Comments Brother Alive Father Alive Maternal Grandfather Maternal Grandmother Caprice don Mother Alive Paternal Grandfather Paternal Grandmother Social History Tobacco Use Types Packs/Day Years Used Date Smoking Tobacco: Former Cigarettes 0.5 5 0 04/07/1990 - 04/07/1995 Passive Smoke Exposure: Past Smokeless Tobacco: Former Tobacco Cessation:Counseling Given: No Alcohol Use Standard Drinks/Week Comments Not Currently 0 (1 standard drink = 0.6 oz pur e alcohol) soc Comments No Sex and Gender Information Value Date Recorded Sex Assigned at Female 08/12/2024 10:05 AM EDT Legal Sex Female 11:48 AM EDT Gender Identity Not on file Sexual Orientation Not on file Last Filed Vital Signs Vital Sign Reading Time Taken Comments Blood Pressure 132/79 08/19/2024 10:28 AM EDT Was taken by pt at home due to severe white coat syndrome Pulse 95 08/19/2024 10:28 AM EDT Temperature 36.9 C (98.5 F) 02/02/2016 11:57 AM EDT Respiratory Rate 14 01/09/2017 4:19 PM EDT Oxygen Saturation 98% 08/19/2024 10: 28 AM EDT Inhaled Oxygen Concentration - - Weight 92.4 kg (203 lb 12.8 oz) 08/19/2024 10:28 AM EDT Height 157.5 cm (5' 2.01 ) 08/19/2024 1 0:28 AM EDT Body Mass Index 37.27 08/19/2024 10:28 AM EDT Plan of Treatment Upcoming Encounters Date Type Department Care Team (Late st Contact Info) Description 11/01/2024 2:50 PM EDT Office Visit [facility] OBGYN [address] [place] [address] Ginny Herndon MD [address] [place] [address] 03/09/2025 9:15 AM EST Office Visit [facility] ENDOCRINOLOGY [address] [place] [address] Marlee Krishnan, DO [address] [place] [address] Health Maintenance Due Date Last Done Comments TDAP/TD VACCINES (1 - Tdap) 1993 ANNUAL PHYSICAL 02/05/2016 COLOGUARD 2019 COLON CANCER SCREENING 5 CALVIN R SIGMOIDOSCOPY 2019 COLONOSCOPY 2019 COLORECTAL CANCER SCREENING 2019 CT COLONOGRAPHY 2019 FECAL OCCULT BLOOD TEST 2019 FIT Testing (1 year) 2019 LIPID PANEL 07/17/2023 07/16/2022 COVID-19 Vaccine ( - season) 2023 Pneumococcal Vaccine 50+ (1 of 1 - PCV) 02/13/2024 ZOSTER VACCINE (1 of 2) 02/13/2024 INFLUENZA VACCINE 01/05/2025 Annual Gynecologic Pelvic and Breast Exam 05/07/2025 05/06/2024 MAMMOGRAM 06/01/2026 06/01/2024 PAP SMEAR 05/06/2027 05/06/2024, 12/20/2016 HEPATITIS C SCREENING Completed 12/04/2017, 018 Procedures Procedure Name Priority Date/Time Associated Diagnosis Comments SCANNED - LABS 09/05/2024 SCANNED - IMAGING 08/19/2024 US NON-OB TRANSVAGINAL STAT 08/16/2024 12:01 PM EDT Abnormal uterine bleeding (AUB) MAMMO SCREENING DIGITAL TOMOSYNTHESIS BILATERAL W CAD Routine 06/01/2024 10:13 AM EST Encounter for screening mammogram for malignant neoplasm of breast LIQUID-BASED PAP SMEAR WITH HPV GENOTYPING REGARDLESS OF INTERPRETATION, [facility] LAB[facility] (ZAKIYA,COR,MAD) Routine 05/06/2024 10:07 AM EST Women's annual routine gynecological examination HEPATITIS C ANTIBODY Routine 12/04/2017 4:28 PM EDT High-risk in second trimester from Last 3 Months or Most Recently Relevant to Health Maintenance Results * LABS SCANNED (09/05/2024) us Marlee Terry Pacitti DO LAB BLOOD ORDERABLES Lauren l Result * IMAGING SCANNED (08/19/2024) Anatomical Region Laterality Modality Radiographic Susan ging Kendrick Fontanez Jr., MD IMG DIAGNOSTIC IMAGING ORDERABLES Final Result * US Non-ob Transvaginal (08/16/2024 12:01 PM EDT) Anatomical Region Laterality Modality Body Ultrasound 08/16/2024 11:4 8 AM EDT Narrative 09/02/2024 5:40 PM EDT PAT NAME: PARVIZ SINGH [facility] REC#: [id number] DA: [id number] PAT GEND: F PAT TYPE: O EXAM ERMELINDA: [id number] REF PHYS MOISES HERNDONA Indication ======== Abnormal Uterine Bleeding Comparison Studies The findings of this study are compared to the prior ultrasound study dated 05/06/2024 History ====== Previous Outcomes 5 Para 3 Miscarriages 2 Method ======= Voluson E6, Transvaginal ultrasound examination, 3D ultrasound examination. View: Adequate view Uterus ====== Uterus: Visualized Uterus position: Anteverted Description of uterine malformations: none Myometrium: Heterogeneous Endometrium: Debris filled fluid within the EMC. Cervix details: Large nabothian cysts visualized Uterus long 124 mm Uterus ap 84 mm Uterus tr 85 mm Uterus Vol 462.6 cm Endometrial thickness, total 13.0 mm Uterine fibroid D1 62.3 mm Uterine fibroid D2 68.6 mm Uterine fibroid D3 65.1 mm Uterine fibroid vol 145.595 cm Uterine fibroids findings: Intramural, posterior to fundal EMC Right Ovary Rt ovary: Suboptimal Rt ovary D1 23.6 mm Rt ovary D2 18.1 mm Rt ovary D3 14.0 mm Rt ovary Vol 3.1 cm Left Ovary ========= Lt ovary: Normal Lt ovary D1 46.6 mm Lt ovary D2 37.4 mm Lt ovary D3 35.80 mm Lt ovary Vol 32.7 cm [place] Sac Normal. No free fluid visualized Impression The uterus is enlarged and a large posterior submucosal fibroid is present, this is stable in size. The ovaries appear sonographically normal in size, shape and morphology Recommendation Follow-up as clinically indicated. Hardwood Floor Installer: Arlette Mcmahan RDMS Physician: Ginny Herndon MD, FACOG Electronically signed by: Ginny Herndon MD, FACOG at: 17:40 Procedure Note Ginny Herndon MD - 09/02/2024 PAT NAME: PARVIZ SINGH [facility] REC#: [id number] DA: [id number] PAT GEND: F PAT TYPE: O EXAM ERMELINDA: [id number] REF PHYS GINNY HERNDNO Indication ======== Abnormal Uterine Bleeding Comparison Studies The findings of this study are compared to the prior ultrasound studydated 05/06/2024 History ====== Previous Outcomes Gravida5 Para3 Miscarriages2 Method ======= Voluson E6, Transvaginal ultrasound examination, 3D ultrasoundexamination. View: Adequate view Uterus ====== Uterus:Visualized Uterus position:Anteverted Description of uterine malformations:none Myometrium:Heterogeneous Endometrium:Debris filled fluid within the EMC. Cervix details:Large nabothian cysts visualized Uterus wsaz368 mm Uterus ap84 mm Uterus tr85 mm Uterus Aft770.6 cm Endometrial thickness, total13.0 mm Uterine fibroid D162.3 mm Uterine fibroid D268.6 mm Uterine fibroid D365.1 mm Uterine fibroid foe833.595 cm Uterine fibroids findings:Intramural, posterior to fundal EMC Right Ovary Rt ovary:Suboptimal Rt ovary D123.6 mm Rt ovary D218.1 mm Rt ovary D314.0 mm Rt ovary Vol3.1 cm Left Ovary ========= Lt ovary:Normal Lt ovary D146.6 mm Lt ovary D237.4 mm Lt ovary D335.80 mm Lt ovary Vol32.7 cm [place] Sac Normal. No free fluid visualized Impression The uterus is enlarged and a large posterior submucosal fibroid ispresent, this is stable in size. The ovaries appear sonographically normalin size, shape and morphology Recommendation Follow-up as clinically indicated. Hardwood Floor Installer: Arlette Mcmahan RDMS Physician: Ginny Herndon MD, FACOG Electronically signed by: Ginny Herndon MD, FACOG at: 17:40 us Ginny Herndon MD [facility] US ORDERABLES Final Result * Mammo Screening Digital Tomosynthesis Bilateral With CAD (06/01/2024 10:13 AM EST) Anatomical Region Laterality Modality Breast N/A Mammography 06/03/2024 7:11 AM EST Impressions 06/03/2024 7:13 AM EST Negative bilateral mammogram. RECOMMENDATION: Continue annual screening mammography. BI-RADS CATEGORY 1, NEGATIVE. CAD was utilized. The standard false-negative rate of mammography is between 10% and 25%. Complex patterns or increased breast density will markedly elevate the false-negative rate of mammography. A letter, in lay terminology, with the results of this exam will be mailed to the patient. 06/03/2024 7:[address] Margarito Colindres MD on Narrative 06/03/2024 7:13 AM EST DIGITAL SCREENING MAMMOGRAM WITH TOMOSYNTHESIS HISTORY: Screening Mammography. Low dose full field digital breast tomosynthesis imaging was performed with 2D and 3D acquisitions consisting of bilateral CC and MLO views. Examination is compared to prior examination dating back to 04/23/2022. Examination is read in conjunction with computer aided detection. FINDINGS: There are scattered areas of fibroglandular density. No suspicious masses, microcalcifications or areas of architectural distortion are present. Radha Pitts STOREROOM KEEPER IMG MAMMOGRAPHY ORDERABLE S Final Result * LIQUID-BASED PAP SMEAR WITH HPV GENOTYPING REGARDLESS OF INTERPRETATION (ZAKIYA,COR,MAD) (05/06/2024 10:07 AM EST) Pathologist [facility] Reference Lab Report [facility] [address] [place] [address] or [phone] Andrea Chiu M.D., [place] Steward/Stewardess PATIENT NAME LABORATORY NO. 65PARVIZ CABRERA [id number] AGE SEX SSN CLIENT REF # [facility] 49 1975 F [id number] [facility] DAVID HORTON REQUESTING Adrian. [place] [address] RADHA PITTS DATE COLLECTED DATE RECEIVED DATE REPORTED 05/06/2024 05/06/2024 05/11/2024 ThinPrep Pap with Cytyc Imaging DIAGNOSIS: Epithelial cell abnormality. (ASC) Atypical squamous cells of undetermined significance. Professional interpretation rendered by Andrea Chiu M.D., F.C.A.P. at [facility], [address] [place] [address]. SPECIMEN ADEQUACY: SATISFACTORY FOR EVALUATION Transformation zone is present. SOURCE OF SPECIMEN: CERVICAL/ENDOCERVI JAYDON SLIDES: 1 CLINICAL HISTORY: Women's annual routine gynecological examination HPV HR-HPV POOL: Positive The Aptima HPV assay is an in vitro nucleic acid amplification test for the qualitative detection of E6/E7 viral messenger RNA from 14 high risk types of HPV in cervical specimens. The high risk HPV types detected include: 16, 18, 31, 33, 35, 39, 45, 51, 52, 56, 58, 59, 66, 68 HPV Genotyping HPV 16: Negative HPV 18/45: Negative The Aptima HPV 16, 18/45 genotype assay is an in vitro nucleic acid amplification test for the qualitative detection of E6/E7 viral messenger RNA of human papillomavirus (HPV) types 16,18/45 in cervical specimens from women with Aptima HPV positive results. The Aptima HPV 16, 18/45 genotype assay can differentiate HPV 16 from HPV 18 and/or HPV 45, but does not differentiate between HPV 18 and HPV 45. Chlamydia / Gonorrhea CHLAMYDIA TRACHOMATIS: Negative NEISSERIA GONORRHOEAE: Negative The Aptima Combo 2 assay is a target amplification nucleic acid probe test that utilizes target capture for the in vitro qualitative detection and differentiation of ribosomal RNA from Chlamydia trachomatis and Neisseria gonorrhoeae to aid in the diagnosis of chlamydial and gonococcal disease using the Birch Tree system. Trichomonas TRICHOMONAS VAGINALIS: Negative The Aptima Trichomonas vaginalis assay is an in vitro qualitative nucleic acid amplification test for the detection of ribosomal RNA to aid in the diagnosis of trichomoniasis. SHAKER TENDER: CAMILLA SIM(ASCP) REVIEWED, DIAGNOSED AND ELECTRONICALLY SIGNED BY: Andrea Chiu M.D., F.C.A.P. CPT CODES: 95097, [id number], 57238, 35151, 93897, 46496, 20841 05/11/2024 2:33 PM EST [facility] ThinPrep Vial Collection / Unknown 05/06/2024 10:07 AM EST 05/06/2024 10:07 AM EST us Radha Pitts APRN PATHOLOGY/CYTOLOGY ORDERA BLES Final Result [facility]
[address] [place] [address], * Hepatitis C Antibody (12/04/2017 4:28 PM EDT) Hepatitis C Ab Non-Reacti ve Non-Reacti ve 12/04/2017 6:03 PM EDT [facility] Blood Venipuncture / Unknown 12/04/2017 4:28 PM EDT 12/04/2017 4:28 PM EDT us Dima Anderson MD LAB BLOOD ORDERABLES Final Result [facility]
[address] [place] [address], from Last 3 Months or Most Recently Relevant to Health Maintenance Insurance [employer] [address] Care Teams Haulpak Driver Relationship Specialty Start Date End Date Nikia Beryr APRN [address] [place] [address] PCP - General Nurse Practitioner 06/01/24
[2024-10-26 20:25] VITALS: BP 139/84; PULSE 119; RESP 18; TEMP 36.8; O2SAT 100; BMI 35.9
--- NOTE | 2024-10-26 20:52 | HMH.EDGENADL ---
Discharge Plan Disposition Patient Disposition: Home, Self-Care Condition: Good Prescriptions Prescriptions: No Action levothyroxine [Unithroid] 25 mcg tablet PO Patient Comments: TAKE 1 TABLET BY MOUTH EVERY MORNING Referrals Follow up/Referrals: Nikia Berry APRN [Primary Care Provider, Medical] - See instructions Activity Restrictions/Add. Instructions Additional Instructions/Restrictions: Call your ELECTRON BEAM OPERATOR in the morning and let them know you are here in the emergency department for vaginal bleeding and see if they can see you in clinic tomorrow. If you start to have multiple episodes of bleeding every hour and you start to feel symptomatic such as lightheadedness dizziness or if you pass out then please return to the emergency department. Start taking the progesterone medicine as prescribed by your OB. Clinical Impressions Clinical Impression: Vaginal bleeding, Fibroid Print Language Print Language: Mohawk Discharge ED Provider: Anh Hsieh Adult HPI General Chief complaint: Vaginal Bleeding Stated complaint: heavy bleeding,headache,light headed Time Seen by Provider: 10/26/24 20:20 Mode of Arrival: Ambulatory Source of Information: Patient Description of Symptoms (Recalled from ER Triage Doc. by RN): Pt presents for evaluation of heavy vaginal bleeding that started at 0600 today. Pt states she has a known fibroid that is the size of a peach . Pt states she has intermittent abdominal cramping and states she has a headache History of Present Illness HPI narrative: Patient is a 49-year-old female with a past medical history of known fibroids who presented to the emergency department with vaginal bleeding. Patient states that she has a known large fibroid. Patient states that she has vaginal bleeding that is worse when she is on her menstrual period. States that she follows with OB and has been given progesterone which she has not started. Patient states that she has gone through a pad once an hour but has not had any symptoms of lightheadedness dizziness or syncope. Patient denies any abdominal pain. Patient denies any chest pain or shortness of breath. Related Data Home Medications ?Medication ?Instructions ?Recorded ?Confirmed levothyroxine 25 mcg tablet mcg PO 09/07/24 09/07/24 (Unithroid) Allergies Allergy/AdvReac Type Severity Reaction Status Date / Time Penicillins (PENICILLINS) Allergy Severe UNABLE TO Verified 09/07/24 09:57 BREATH sulfamethoxazole (From AdvReac Verified 09/07/24 09:57 Bactrim) trimethoprim (From Bactrim) AdvReac Verified 09/07/24 09:57 PFSH PFSH Disclaimer: The information contained in this section may have been updated after the patient was seen, as this information can be updated by other users. Medical History (Updated 10/26/24 @ 22:23 by Anh Hsieh DO) Thyroid disorder High cholesterol Surgical History (Updated 09/07/24 @ 10:18 by Amy Li MA) History of wisdom tooth extraction History of hand surgery Family History (Updated 09/07/24 @ 10:18 by Amy Li MA) Other Cancer Diabetes Heart attack Hypertension Social History (Updated 09/07/24 @ 10:19 by Amy Li MA) Smoking Status: Never smoker alcohol intake: never substance use type: denies use current occupational status: other details: stay @ home Travel in the last 8 weeks?: None household members: spouse marital status: Have you lived/traveled outside US in past 30 days?: No Contact w/someone who lives/traveled outside US past 30 days?: No Exposure to someone with infectious disease in past 14 days?: No Do you have a fever (greater than 100.4 F or 38 C)?: No Have you tested positive for COVID-19?: No Exposed to someone with COVID-19 in past 14 days?: No Do you have a sore throat?: No Do you have a cough?: No Do you have any weakness?: No Do you have any diarrhea?: No Are you experiencing any unusual bleeding?: No Do you have any muscle aches/pain?: No Do you have any abdominal pain?: No Are you experiencing loss of taste or smell?: No ROS Obtained: Yes All systems reviewed & no additional complaints except as documented and Yes Systems reviewed as appropriate & no additional complaints except as documented Physical Exam General General appearance: alert and in no apparent distress Head Head exam: atraumatic, normocephalic and normal inspection Eye Eye exam: Present normal appearance, PERRL and EOMI; Absent scleral icterus ENT ENT exam: Present normal exam and normal external ear exam Neck Neck exam: Present normal inspection and full ROM Chest Chest inspection: Present normal inspection and symmetric chest wall rise Respiratory Respiratory exam: Present normal lung sounds bilaterally; Absent respiratory distress or wheezes Cardiovascular Cardiovascular exam: Present regular rate, normal rhythm and normal heart sounds Abdominal Exam Abdominal exam: Present soft and distention; Absent tenderness, guarding or rebound Extremities Exam Extremities exam: Present normal inspection and full ROM Back Exam Back exam: Present normal inspection and full ROM Neurological Exam Neurological exam: Present alert and oriented X3 Psychiatric Psychiatric exam: Present normal affect and normal mood Skin Skin exam: Present warm and dry Medical Decision Making Medical Records Medical records reviewed: Yes I reviewed the patient's medical records. Screening: Per USPSTF and CDC recommendations, given the prevalence of disease in our region, it is our hospital?s policy to screen for HIV and viral Hepatitis for all patients aged 18 and over and those with ongoing risk factors. Randy Inquiry Pt receiving controlled substance: No Vital Signs: 10/26/24 20:25 10/26/24 22:25 Temperature 98.2 F 98 F Temperature Source Oral Oral Pulse Rate 78 Pulse Rate [Right] 119 H Respiratory Rate 18 18 Blood Pressure 188/109 H Blood Pressure [Right Arm] 139/84 Blood Pressure Mean [Right Arm] 102 Blood Pressure Source Automatic Cuff Blood Pressure Source [Right Arm] Automatic Cuff Blood Pressure Position Sitting Blood Pressure Position [Right Arm] Sitting 02 Sat by Pulse Oximetry 100 Oxygen Delivery Method Room Air Room Air Lab Data Lab Results 10/26/24 20:28: WBC 10.1, RBC 4.83, Hgb 13.4, Hct 41.1, MCV 85.1, MCH 27.7, MCHC 32.6, RDW 14.4, Plt Count 385, MPV 11.1 H, Neut % (Auto) 58.5, Lymph % (Auto) 33.1, [place] % (Auto) 5.7, Eos % (Auto) 1.8, Baso % (Auto) 0.7, Neut # (Auto) 5.9, Lymph # (Auto) 3.3, [place] # (Auto) 0.6, Eos # (Auto) 0.2, Baso # (Auto) 0.1, Sodium 134 L, Potassium 3.4 L, Chloride 101, Carbon Dioxide 25, Anion Gap 11.4, BUN 14, Creatinine 0.70, Estimated Creat Clear 131, Estimated GFR 89, Est GFR ( Amer) 107, Glucose 146 H, Calcium 9.3, Total Bilirubin 0.7, AST 32, ALT 19, Alkaline Phosphatase 65, Total Protein 8.5 H, Albumin 4.6, Globulin 3.9 H, Albumin/Globulin Ratio 1.2 10/26/24 21:09: Urine HCG, Qual Negative 10/26/24 21:13: Blood Type A Positive, Antibody Screen Negative 10/26/24 20:28 10/26/24 20:28 Orders (Tests/Meds): ED MEDICATIONS Discontinued Medications Generic Name Dose Route Start Last Admin Trade Name Yennifer PRN Reason Stop Dose Admin Ketorolac Tromethamine 30 mg 10/26/24 21:02 10/26/24 21:31 Ketorolac 30mg/Ml Vial IV 10/26/24 21:03 30 mg ONCE ONE Administration Ondansetron HCl 4 mg 10/26/24 21:02 10/26/24 21:31 Ondansetron 4mg/2ml Vial IV 10/26/24 21:03 4 mg ONCE ONE Administration ORDERS Category Date Time Status Type and Screen Stat BBK 10/26/24 21:13 Completed CBC w/Auto Diff [Complete Blood Count Auto Diff] Stat Lab 10/26/24 20: Completed CMP [Comprehensive Metabolic Panel] Stat Lab 10/26/24 20:28 Completed Urine , HCG Qual. Stat Lab 10/26/24 21:09 Completed Medical Decision Narrative: Patient is an otherwise healthy 49-year-old female who presented to the emergency department with vaginal bleeding. On arrival, patient was hemodynamically stable initially tachycardic which resolved. Patient's vital signs were otherwise unremarkable. Differential includes but not limited to: Fibroid, symptomatic anemia, PCOS,, intra-abdominal abscess, amongst others. On exam, patient had no abdominal tenderness. Patient's labs were reviewed and interpreted by myself, CBC showed no leukocytosis, hemoglobin was stable. CMP was otherwise unremarkable. I offered patient a CT scan to further evaluate her fibroid but given that patient states that she has a known fibroid she does not wish to pursue a CT image at this time. Given that patient has a stable hemoglobin, does not have any signs of symptomatic anemia at this time and given that patient has close follow-up with OB I felt this was appropriate. I recommended that patient start the progesterone medicine that she was given by OB and to call them in the morning to let them know that she was here in the emergency department. Return precautions were discussed and patient was otherwise discharged home in stable condition. Critical Care Critical Care Time Critical Care Time: No
[2024-10-26 21:10] LABS: Hematocrit 41.1 % (37.0-47.0); Hemoglobin 13.4 g/dL (12.2-16.2); Immature Granulocytes % 0.2 %; Mean Corpuscular HGB Conc 32.6 g/dL (31.8-35.4); Mean Corpuscular Hemoglobin 27.7 pg (27.0-31.2); Mean Corpuscular Volume 85.1 fl (81-99); Nucleated Red Blood Cells % 0 %; Platelet Count 385 K/mm3 (142-424); Red Blood Count 4.83 M/mm3 (4.20-5.40); Red Cell Distribution Width-SD 44.4 fL; White Blood Count 10.1 K/mm3 (4.8-10.8)
[2024-10-26 21:12] LABS: Chloride 101 mmol/L (98-107)
[2024-10-26 21:13] LABS: Albumin Level 4.6 g/dl (3.5-5.0); Potassium 3.4 mmoL/L (3.5-5.1); Sodium 134 mmol/L (136-145)
[2024-10-26 21:15] LABS: Blood Urea Nitrogen 14 mg/dl (7-17); Creatinine Clearance Estimated 131 mL/min (50-200); Creatinine,Serum 0.70 mg/dl (0.52-1.04); Estimated Glomerular Filt Rate 89 ml/min (>60); GFR (African American) 107 ML/MIN (>60)
[2024-10-26 21:16] LABS: Alanine Aminotransferase 19 U/L (12-78); Albumin/Globulin Ratio 1.2 (1.1-1.8); Alkaline Phosphatase 65 U/L (38-126); Anion Gap 11.4 mEq/L (5-15); Aspartate Amino Transferase 32 U/L (14-36); Bilirubin,Total 0.7 mg/dl (0.2-1.3); Calcium 9.3 mg/dl (8.4-10.2); Carbon Dioxide 25 mmol/L (22.0-30.0); Globulin 3.9 g/dL (1.3-3.2); Glucose 146 mg/dl (74-100); Total Protein,Serum 8.5 g/dl (6.3-8.2)
[2024-10-26 21:19] LABS: Urine Pregnancy, HCG Qual. Negative (Negative)
[2024-10-26] MEDS: ONDANSETRON 4MG/2ML VIAL 4 MG IV (21:31)
[2024-10-26] MEDS: KETOROLAC 30MG/ML VIAL 30 MG IV (21:31)
[2024-10-26 22:25] VITALS: BP 188/109; PULSE 78; RESP 18; TEMP 36.6; O2SAT 98
== END 2024-10-26 22:25 | disposition home or self-care (01) ==
PROVIDERS: Emergency Provider Student in an Organized Health Care Education/Training Program; PCP Family Medicine Addiction Medicine
DX: N39.9 Disorder of urinary system, unspecified (principal); D21.9 Benign neoplasm of connective and other soft tissue, unspecified
CPT/HCPCS: 80053; 81025; 85025; 86850; 96374; 96375; 99284; J1885; J2405

== ENCOUNTER 2024-11-17 15:26 | Outpatient (CLI) | payer MEDICAID, SELFPAY ==
--- OUTSIDE RECORDS SUMMARY | 2016-02-08 09:15 | XMS_ITS | Encounter Summary ---
Author Organization [facility] Address [address] [place] [address] Care Team Providers Care Feedmobile Driver Name Role Phone Unavailable Primary Care Provider Unavailabl e Reason for Referral * Diagnostic Imaging (Routine) - Closed Specialty Diagnoses / Procedures Referred By Contac t Referred To Contact Radiology Diagnoses Threatened Procedures US Ob Transvaginal Sajan Rubi MD [address] [place] [address] Phone: tel: fax: [address] [address] Phone: tel: fax: Referral ID Status Reason Start Date Expiration Date Visits Re quested Visits Authorized [id number] Closed 02/05/2016 08/03/2016 1 1 Reason for Visit * Diagnostic Imaging (Routine) - Closed Specialty Diagnoses / Procedures Referred By Contac t Referred To Contact Radiology Diagnoses Threatened Procedures US Ob Transvaginal Sajan Rubi MD [address] [place] [address] Phone: tel: fax: [address] [address] Phone: tel: fax: Referral ID Status Reason Start Date Expiration Date Visits Re quested Visits Authorized [id number] Closed 02/05/2016 08/03/2016 1 1 Encounter Details Date Type Department Care Team (Latest Contact Info) Description 02/08/2016 9:15 AM EDT Hospital Encounter [facility] [phone] Threatened Social History Tobacco Use Types Packs/Day [...] Care Team (Late st Contact Info) Description 11/29/2024 10:00 AM EDT Office Visit [facility] OBGYN [address] [place] [address] Ginny Allen MD [address] [facility] [address] [place] [address] 03/09/2025 9:15 AM EST Office Visit [facility] ENDOCRINOLOGY [address] [place] [address] PacMarlee bartholomew, [address] [place], [place] [id number] documented as of this encounter Procedures Procedure Name Priority Date/Time Associated Diagnosis Comments US OB TRANSVAGINAL Routine 02/08/2016 9: 52 AM EDT Threatened documented in this encounter Results * US Ob Transvaginal (02/08/2016 9:52 AM EDT) Anatomical Region Laterality Modality Body Ultrasound 02/08/2016 9:35 AM EDT Narrative 02/08/2016 7:00 PM EDT PAT NAME: BRYNN CORRIGAN MED REC#: [id number] DA: [id number] PAT GEND: F PAT TYPE: O EXAM ERMELINDA: [id number] REF PHYS SAJAN RUBI Indication ======== Threatened [...] Uterus and ovaries are within normal limits. Research Consultant Comments Large nabothian cyst, measuring 23 x 22 x 16 mm. An anechoic area is present within the EMC, abnormally shaped for a gestational sac and appears empty. Impression ========= Probable Anembryonic gestation w/ blighted ovum, but an ectopic cannot be ruled out. Recommendation Follow-up as clinically indicated. Research Consultant: Kandice Hassan RDMS Physician: Didier Villalobos MD Electronically signed by: Didier Villalobos MD at: 19:00 Procedure Note Didier Villalobos MD - 02/08/2016 PAT NAME: BRYNN CORRIGAN [facility] REC#: [id number] DA: 1975 PAT GEND: F PAT TYPE: O EXAM ERMELINDA: [id number] REF PHYS SAJAN RUBI Indication ======== Threatened [...] Other:Uterus and ovaries are within normal limits. Research Consultant Comments Large nabothian cyst, measuring 23 x 22 x 16 mm. An anechoic area is present within the EMC, abnormally shaped for agestational sac and appears empty. Impression ========= Probable Anembryonic gestation w/ blighted ovum, but an ectopic pregnancycannot be ruled out. Recommendation Follow-up as clinically indicated. Research Consultant: Kandice Hassan RDMS Physician: Didier Villalobos MD Electronically signed by: Didier Villalobos MD at: 19:00 Sajan Rubi MD [facility] ORDERABLES Final Re sult documented in this encounter Visit Diagnoses Diagnosis Threatened documented in this encounter
--- OUTSIDE RECORDS SUMMARY | 2017-01-09 14:00 | XMS_ITS | Encounter Summary ---
Author Organization [facility] Address [address] [place] [address] Care Team Providers Care Planning Associate Name Role Phone Unavailable Primary Care Provider Unavailabl e Reason for Referral * Diagnostic Imaging (Routine) - Closed Specialty Diagnoses / Procedures Referred By Contac t Referred To Contact Radiology Diagnoses Enlarged uterus Procedures US Non-ob Transvaginal Sajan Rubi MD [address] [place] [address] Phone: tel: fax: [facility] Phone: tel: Referral ID Status Reason Start Date Expiration Date Visits Re quested Visits Authorized [id number] Closed 12/20/2016 12/20/2017 1 1 Reason for Visit * Diagnostic Imaging (Routine) - Closed Specialty Diagnoses / Procedures Referred By Contac t Referred To Contact Radiology Diagnoses Enlarged uterus Procedures US Non-ob Transvaginal Sajan Rubi MD [address] [place] [address] Phone: tel: fax: [facility] Phone: tel: Referral ID Status Reason Start Date Expiration Date Visits Re quested Visits Authorized [id number] Closed 12/20/2016 12/20/2017 1 1 Encounter Details Date Type Department Care Team (Latest Contact Info) Description 01/09/2017 2:00 PM EDT Hospital Encounter [facility] [phone] Enlarged uterus Social History Tobacco Use Types [...] Description 11/29/2024 10:00 AM EDT Office Visit [facility] OBGYN [address] [place] [address] Ginny Allen MD [address] [place] [address] 03/09/2025 9:15 AM EST Office Visit [facility] ENDOCRINOLOGY [address] [place] [address] Marlee Krishnan, DO [address] [place], [place] [id number] documented as of this encounter Procedures Procedure Name Priority Date/Time Associated Diagnosis Comments US NON-OB TRANSVAGINAL Routine 01/09/2017 3:06 PM EDT Enlarged uterus documented in this encounter Results * US Non-ob Transvaginal (01/09/2017 3:06 PM EDT) Anatomical Region Laterality Modality Body Ultrasound 01/09/2017 2:57 PM EDT Narrative 01/09/2017 6:42 PM EDT PAT NAME: BRYNN CORRIGAN MED REC#: [id number] DA: [id number] PAT GEND: F PAT TYPE: O EXAM ERMELINDA: [id number] REF PHYS SAJAN RUBI Indication ======== Enlarged [...] 10.8 cm Cul de Sac ========= Normal. Hoop Punch Operator Helper Comments Large nabothian cyst measuring 24 x 23 x 18 mm. Impression ========= The uterus is normal in size. Findings consistent with intramural fibroid(s). The endometrium appears sonographically normal in shape and appearance. Secretory appearing endometrium, consistent with stated menstrual history. Findings consistent with Nabothian cyst(s) of cervix. The ovaries appear sonographically normal in size, shape and morphology. Recommendation Follow-up as clinically indicated. Hoop Punch Operator Helper: Kandice Hassan RDMS Physician: Didier Villalobos MD Electronically signed by: Didier Villalobos MD at: 18:42 Procedure Note Didier Villalobos MD - 01/09/2017 PAT NAME: BRYNN CORRIGAN [facility] REC#: [id number] DA: [id number] PAT GEND: F PAT TYPE: O EXAM ERMELINDA: [id number] REF PHYS SAJAN RUBI Indication ======== Enlarged [...] vol10.8 cm Cul de Sac ========= Normal. Hoop Punch Operator Helper Comments Large nabothian cyst measuring 24 x 23 x 18 mm. Impression ========= The uterus is normal in size. Findings consistent with intramuralfibroid(s). The endometrium appears sonographically normal in shape and appearance. Secretory appearing endometrium, consistent with statedmenstrual history. Findings consistent with Nabothian cyst(s) of cervix. The ovaries appear sonographically normal in size, shape and morphology. Recommendation Follow-up as clinically indicated. Hoop Punch Operator Helper: Kandice Hassan RDMS Physician: Didier Villalobos MD Electronically signed by: Didier Villalobos MD at: 18:42 us Sajan Rubi MD IMG US ORDERABLES Final Re sult documented in this encounter Visit Diagnoses Diagnosis Enlarged uterus Hypertrophy of uterus documented in this encounter
--- OUTSIDE RECORDS SUMMARY | 2024-11-17 15:29 | XMS_ITS | Encounter Summary ---
[facility] Address [address] [place] [id number] Care Team Providers Care Lead Database Administrator Name Role Phone Nikia Berry APRN Primary Care Provider [phone] Encounter Details Date Type Department Care Team (Late st Contact Info) Description 09/22/2024 Telephone [facility] ENDOCRINOLOGY [address] [place] [address] Marlee Krishnan DO [address] [facility] [address] [place] [address] Social History Tobacco Use Types [...] AFTER STARTING THIS MEDICATION. PHONE NUMBER IS [phone] documented in this encounter Plan of Treatment Upcoming Encounters Date Type Department Care Team (Late st Contact Info) Description 11/29/2024 10:00 AM EDT Office Visit [facility] OBGYN [address] [place] [address] Ginny Allen MD [address] [facility] [address] [place] [address] 03/09/2025 9:15 AM EST Office Visit [facility] ENDOCRINOLOGY [address] [facility] [address] [place] [address] Marlee Krishnan, [address] [facility] [address] [place] [address] documented as of this encounter Visit Diagnoses Not on filedocumented in this encounter Care Teams Lead Database Administrator Relationship Specialty Start Date End Date Nikia Berry APRN [address] [place], [place] [id number] PCP - General Nurse Practitioner 06/01/24 documented as of this encounter
--- OUTSIDE RECORDS SUMMARY | 2024-11-17 15:29 | XMS_ITS | Referral Summary ---
Author Organization [employer] ([place], [place], [place], [place]) Address [address] [place] [address] Care Team Providers Care District Claims Manager Name Role Phone Marisol Uribe MD Primary Care Provider [phone] Allergies Active Allergy Reactions Criticality Noted Date [...] Date Federico rded Speak language other than Nepalese at home Not on file 04/16/2023 Want [...] - 07/17/2022 4:06 AM EDT Performed at: [address] [place] [id number] Cutting Supervisor: Tommy Benjamin PhD, Phone: [phone] us Marisol Uribe MD LAB BLOOD ORDERABLES Final Res ult [facility] * HM MAMMOGRAPHY (04/23/2022) Anatomical Region Laterality Modality Other us Marisol Uribe MD HEALTH MAINTENANCE Final Resul t from Last 3 Months or Most Recently Relevant to Health Maintenance Insurance [facility] Care Teams District Claims Manager Relationship Specialty Start Date End Date Marisol Uribe MD [address] [facility] [address] [place] [id number] PCP - General Family Medicine 03/14/22
--- OUTSIDE RECORDS SUMMARY | 2024-11-17 15:29 | XMS_ITS | Encounter Summary ---
[facility] Address [address] [place] [address] Care Team Providers Care Machine Coil Assembler Name Role Phone Nikia Berry APRN Primary Care Provider [phone] Reason for Visit * Reason Onset Date Comments DR. KATRINA PA SAME DAY 09/27/2024 Encounter Details Date Type Department Care Team (Late st Contact Info) Description 09/27/2024 Telephone [facility] OBGYN [address] [facility] [address] [place] [address] Ginny Allen MD [address] [facility] [address] [place] [address] DR. KATRINA PA SAME DAY Social History [...] SINGH Relationship: SELF Best call back number: [phone] PATIENT CALLED REQUESTING TO CANCEL SAME DAY [...] Description 11/29/2024 10:00 AM EDT Office Visit [facility] OBGYN [address] [place] [address] Ginny Allen MD [address] [place] [address] 03/09/2025 9:15 AM EST Office Visit [facility] ENDOCRINOLOGY [address] [place] [address] Marlee Krishnan, DO [address] [place] [address] documented as of this encounter Visit Diagnoses Not on filedocumented in this encounter Care Teams Machine Coil Assembler Relationship Specialty Start Date End Date Nikia Berry APRN [address] [place] [address] PCP - General Nurse Practitioner 06/01/24 documented as of this encounter
--- OUTSIDE RECORDS SUMMARY | 2024-11-17 15:29 | XMS_ITS | Clinical Summary ---
Author Organization [facility] Address [address] [place] [address] Care Team Providers Care Auditor In Charge Name Role Phone Nikia Berry APRN Primary Care Provider [phone] Allergies Active Allergy Reactions Criticality Noted Date [...] discussed: Circumcision (y / n / na): Cutting Machine Fixer: Baby's name: Breast/bottle feeding: Placental location: Postdates discussed: Tdap discussed: Tdap vaccine received: Flu vaccine discussed: Flu vaccine received: AMA - multigravida (1 in 28) 10/11/2017 Hypothyroidism affecting 10/11/2017 Overview (12/04/2017): TSH Gestational Age (wks) 16w6d 2.13 Annual PASTING INSPECTOR exam w/o problem 02/08/2016 Overview (01/09/2017): SCREENING [...] Type Department Care Team Description 10/26/2024 Telephone [facility] OBGYN [address] [facility] [address] [place] [address] WELLS - MEDICAL CONCERN 10/14/2024 Telephone [facility] OBGYN [address] [facility] [address] [place] [address] MD [address]WELLS - CALLBACK 09/27/2024 Telephone [facility] OBGYN 17[address] [facility] [address] [place] [address] MD [address] WELLS - CANCEL SAME DAY 09/22/2024 Telephone [facility] ENDOCRINOLOGY [address] [place] [address] Marlee Krishnan, DO 09/07/2024 Telephone [facility] [address] [facility] [address] [place] [address] Marlee Krishnan, DO 09/01/2024 Telephone [facility] OBGYN [address] [place] [address] MD [address]WELLS - MEDICATION 08/19/2024 10:15 AM EDT Office Visit [facility] [address] [facility] [address] [place] [address] Marlee Krishnan, Nontoxic multinodular goiter (Primary Dx); 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 08/19/2024 Prior Authorization [facility] ENDOCRINOLOGY [address] [facility] [address] [place] [address] Marlee Krishnan, Unithroid Approval 08/19/2024 Travel 08/17/2024 Telephone [facility] OBGYN [address] [place] [address] Ginny Allen MD REQ BLOOD WORK ORDERS from Last 3 Months Family History Medical [...] Description 11/29/2024 10:00 AM EDT Office Visit [facility] OBGYN [address] [place] [address] Ginny Allen MD [address] [facility] [address] [place] [address] 03/09/2025 9:15 AM EST Office Visit [facility] ENDOCRINOLOGY [address] [place] [address] Marlee Krishnan, [address] [place] [address] Health Maintenance Due Date Last Done Comments TDAP/TD VACCINES (1 - Tdap) 1993 ANNUAL PHYSICAL 02/05/2016 COLOGUARD 2019 COLON CANCER SCREENING 5 YEA R SIGMOIDOSCOPY 2019 COLONOSCOPY 2019 COLORECTAL CANCER SCREENING 2019 CT COLONOGRAPHY 2019 FECAL OCCULT BLOOD TEST 2019 FIT Testing (1 year) 2019 LIPID PANEL 07/17/2023 07/16/2022 COVID-19 Vaccine (1 - 2023- season) 2023 Pneumococcal Vaccine 50+ (1 of 1 - PCV) 02/13/2024 ZOSTER VACCINE (1 of 2) 02/13/2024 INFLUENZA VACCINE 01/05/2025 Annual Gynecologic Pelvic and Breast Exam 05/07/2025 05/06/2024 MAMMOGRAM 06/01/2026 06/01/2024, 04/23/2022 PAP SMEAR 05/06/2027 05/06/2024, 12/20/2016 HEPATITIS C SCREENING Completed 12/04/2017, 018 Procedures Procedure Name Priority Date/Time Associated Diagnosis Comments SCANNED - LABS 09/05/2024 SCANNED - IMAGING 08/19/2024 MAMMO SCREENING DIGITAL TOMOSYNTHESIS BILATERAL W CAD [...] Results * LABS SCANNED (09/05/2024) us Marlee Krishnan DO LAB BLOOD ORDERABLES Lauren l Result * IMAGING SCANNED (08/19/2024) Anatomical Region Laterality Modality Radiographic Susan ging us Kendrick Fontanez Jr., MD IMG DIAGNOSTIC IMAGING ORDERABLES Final Result * Mammo Screening Digital [...] of architectural distortion are present. Radha Pitts APRN IM MAMMOGRAPHY ORDERABLE S Final Result * LIQUID-BASED PAP SMEAR WITH HPV GENOTYPING REGARDLESS OF INTERPRETATION (ZAKIYA,COR,MAD) (05/06/2024 10:07 AM EST) Pathologist [facility] Reference Lab Report [facility] [address] [place] [address] or [phone] Andrea Chiu M.D., Manager System PATIENT NAME LABORATORY NO. [facility] [place] [id number] AGE SEX SSN CLIENT REF # [facility] ([facility]) 49 1975 F [id number] Vincent HORTON REQUESTING Marilu [place] [address] RADHA PITTS DATE COLLECTED DATE RECEIVED DATE REPORTED 05/06/2024 05/06/2024 05/11/2024 ThinPrep Pap with Cytyc Imaging DIAGNOSIS: Epithelial cell abnormality. (ASC) Atypical squamous cells of undetermined significance. Professional interpretation rendered by Andrea Chiu M.D., F.C.A.P. at [facility], [address] [place] [address]. SPECIMEN ADEQUACY: SATISFACTORY FOR EVALUATION Transformation zone [...] of chlamydial and gonococcal disease using the [place] system. Trichomonas TRICHOMONAS VAGINALIS: Negative The Aptima Trichomonas vaginalis assay is an in vitro qualitative nucleic acid amplification test for the detection of ribosomal RNA to aid in the diagnosis of trichomoniasis. LOCKSTITCH COAT JOINER: CAMILLA SIM(ASCP) REVIEWED, DIAGNOSED AND ELECTRONICALLY SIGNED BY: Andrea Chiu M.D., F.C.A.P. CPT CODES: 34144, [id number], 08411, 22404, 29961, 12652, 67714 05/11/2024 2:33 PM EST [facility] ThinPrep Vial Collection / Unknown 05/06/2024 10:07 AM EST 05/06/2024 10:07 AM EST Radha Pitts PELLETISING EXTRUDER OPERATOR PATHOLOGY/CYTOLOGY ORDERA BLES Final Result [facility]
[address] [place] [address], * Hepatitis C Antibody (12/04/2017 4:28 PM EDT) Hepatitis C Ab Non-Reacti ve Non-Reacti ve 12/04/2017 6:03 PM EDT [facility] Blood Venipuncture / Unknown 12/04/2017 4:28 PM EDT 12/04/2017 4:28 PM EDT Dima Anderson MD LAB BLOOD ORDERABLES Final Result Performing Organization Address City/[facility] Co de Phone Number [facility]
[address] [place] [address], from Last 3 Months or Most Recently Relevant to Health Maintenance Insurance Care Teams Auditor In Charge Relationship Specialty Start Date End Date Nikia Berry APRN [address] [place] [address] PCP - General Nurse Practitioner 06/01/24
--- OUTSIDE RECORDS SUMMARY | 2024-11-17 15:29 | XMS_ITS | Encounter Summary ---
[facility] Address [address] [place] [address] Care Team Providers Care Consumer Insight Analyst Name Role Phone Nikia Berry APRN Primary Care Provider [phone] Reason for Visit * Reason Onset Date Comments DR.WELLS Madalyn ROSADO 10/14/2024 Encounter Details Date Type Department Care Team (Late st Contact Info) Description 10/14/2024 Telephone [facility] OBGYN [address] [address] Ginny Allen MD 1700 [facility] [address] [place] [address] DR.WELLS Madalyn ROSADO Social History Tobacco Use [...] Singh Relationship: Self Best call back number: [phone] Who are you requesting to speak with (clinical staff, provider, specific staff member): CLINICAL What was the call regarding: PT HAS QUESTIONS PRIOR TO HER APPT ON 11/01 documented in this encounter Plan of Treatment Upcoming Encounters Date Type Department Care Team (Late st Contact Info) Description 11/29/2024 10:00 AM EDT Office Visit [facility] OBGYN [address] [place] [address] Ginny Allen MD [address] [facility] [address] [place] [address] 03/09/2025 9:15 AM EST Office Visit [facility] ENDOCRINOLOGY [address] [place] [address] PacMarlee bartholomew, DO [address] [place] [address] documented as of this encounter Visit Diagnoses Not on filedocumented in this encounter Care Teams Consumer Insight Analyst Relationship Specialty Start Date End Date Nikia Berry APRN [address] [place] [address] [place], [place] [id number] PCP - General Nurse Practitioner 06/01/24 documented as of this encounter
--- OUTSIDE RECORDS SUMMARY | 2024-11-17 15:29 | XMS_ITS | Clinical Summary ---
Author Organization [facility] ([place], [place], [place], [place]) Address [address] [place] [address] Care Team Providers Care Wire Harness Design Engineer Name Role Phone Marisol Uribe MD Primary Care Provider [phone] Allergies Active Allergy Reactions Criticality Noted Date [...] rded Speak language other than Citizen [place] at home Not on file 04/16/2023 Want [...] Lipid panel (07/16/2022 12:17 PM EDT) Pathologist [facility] Cholesterol, Total 242(H) 100 - 199 mg/dL [facility] Triglycerides 178(H) 0 - 149 mg/dL [facility] HDL Cholesterol 45 >39 mg/dL [facility] VLDL Cholesterol Stuart 33 5 - 40 mg/dL [facility] LDL Calculated 164(H) 0 - 99 mg/dL [facility] Blood 07/16/2022 12:1 7 PM EDT 07/16/2022 Narrative [facility] - 07/17/2022 4:06 AM EDT Performed at: 01 - [facility] [address] [id number] Thread Inspector: Tommy Benjamin PhD, Phone: [phone] Marisol Uribe MD LAB BLOOD ORDERABLES Final Res ult Performing Organization Address City/State/[facility] Co de Phone Number [facility] * HM MAMMOGRAPHY (04/23/2022) Anatomical Region Laterality Modality Other Marisol Uribe MD HEALTH MAINTENANCE Final Resul t from Last 3 Months or Most Recently Relevant to Health Maintenance Insurance [facility] Care Teams Wire Harness Design Engineer Relationship Specialty Start Date End Date Marisol Uribe MD [address] [facility] [place] [address] PCP - General Family Medicine 03/14/22
--- OUTSIDE RECORDS SUMMARY | 2024-11-17 15:29 | XMS_ITS | Clinical Summary ---
Author Organization [facility] Address [address] [place] [address] Care Team Providers Care Piano Regulator Name Role Phone Cristi Lee MD Primary Care Provider [phone] Allergies Active Allergy Reactions Criticality Noted Date [...] Date Last Done Comments [facility]-Depression Screening 1974 [facility]-Infant/Child/Adol SDOH Screenings 1974 [facility]- SDOH Screenings 02/13/1992 [facility]-Adult SDOH Screenings 02/13/1992 [facility]-DTaP,Tdap,and Td Vaccine s (1 - Tdap) 1993 [facility]-Hepatitis B Vaccines (1 of 3 - 19+ 3-dose series) 1993 [facility]-Pap Smear 1995 [facility]-Cervical Cancer Screening 02/13/2004 [facility]-HPV/Cotest 02/13/2004 CT Colonography 2019 Colonoscopy 2019 FIT-DNA 2019 FIT 2019 FOBT 2019 Sigmoidoscopy 2019 [facility]-Colorectal Cancer Screening 2019 [id number]-89 Vaccine (1 - 20 24-25 season) 2023 [...] ORDERABLES Final Re sult Performing Organization Address City/State/[facility] Co de Phone Number SUNQUEST * Hepatitis C Antibody (10/16/2017 12:36 PM EDT) Hepatitis C Antibody NEGATIVE Reference Range: Negative SUNQUEST 10/16/2017 12:3 6 PM EDT 10/16/2017 6:08 PM EDT us Cande Morales MD LAB BLOOD ORDERABLES Final Re sult Performing Organization Address City/[facility] Co de Phone Number SUNQUEST from Last 3 Months or Most Recently Relevant to Health Maintenance Insurance [facility] MEDICAID Care Teams Piano Regulator Relationship Specialty Start Date End Date Cristi Lee MD [address] [place] [address] PCP - General 08/18/20
--- OUTSIDE RECORDS SUMMARY | 2024-11-17 15:29 | XMS_ITS | Encounter Summary ---
Author Organization [facility] Address [address] [place] [id number] Care Team Providers Care Oil Well Logger Name Role Phone Nikia Berry APRN Primary Care Provider [phone] Reason for Visit * Reason Onset Date Comments DR. HERNDON - MEDICAL CONCERN 10/26/2024 Encounter Details Date Type Department Care Team (Late st Contact Info) Description 10/26/2024 Telephone [facility] OBGYN [address] [address] Ginny Herndon MD 1700 [facility] [address] [place] [address] DR. HERNDON - MEDICAL CONCERN Social History [...] Offered appointment with Dr. Herndon 10/28/24 in [place] office. Patient declined; prefers to keep appointment [...] Description 11/29/2024 10:00 AM EDT Office Visit [facility] OBGYN [address] [place] [address] Ginny Herndon MD [address] [facility] [address] [place] [address] 03/09/2025 9:15 AM EST Office Visit [facility] END[facility]INOLOGY [address] [facility] [address] [place] [phone] Marlee Krishnan, DO [address] [facility] [address] [place], [place] [id number] documented as of this encounter Visit Diagnoses Not on filedocumented in this encounter Care Teams Oil Well Logger Relationship Specialty Start Date End Date Nikia Berry APRN [address] [place], [place] [address] [place] [address] PCP - General Nurse Practitioner 06/01/24 documented as of this encounter
[2024-11-17 16:07] LABS: Hematocrit 39.7 % (37.0-47.0); Hemoglobin 13.3 g/dL (12.2-16.2)
[2024-11-17 16:49] LABS: Potassium 3.8 mmoL/L (3.5-5.1); Sodium 136 mmol/L (136-145)
[2024-11-17 16:52] LABS: Iron 95 ug/dL (37-170); Magnesium 2.2 mg/dl (1.6-2.3)
[2024-11-17 17:02] LABS: Total Iron Binding Capacity 319 ug/dL (265-497)
[2024-11-17 17:15] LABS: 25-OH Vitamin D, Total 28.2 ng/mL (30-100)
[2024-11-17 17:16] LABS: Free Thyroxine Index 2.4 ug/dL (5.93-13.13); T4 (Thyroxine) 7.9 ug/dl (5.53-11.0); Triiodothryronine (T3) Uptake 31 % (23.5-40.5)
[2024-11-17 17:29] LABS: Ferritin 18.4 ng/ml (6.24-137)
[2024-11-17 17:30] LABS: Thyroid Stimulating Hormone 5.44 uIU/mL (0.465-4.68)
[2024-11-17 17:49] LABS: Vitamin B12 322 pg/mL (239-931)
[2024-11-18 17:34] LABS: Folate > 20.00 ng/mL
== END 2024-11-17 23:59 | disposition home or self-care (01) ==
LOC: LAB 15:27
PROVIDERS: PCP Family Medicine Addiction Medicine; Visit Provider Family Medicine Addiction Medicine
DX: Z01.89 Encounter for other specified special examinations (principal)
CPT/HCPCS: 36415; 82306; 82607; 82728; 82746; 83540; 83550; 83735; 84132; 84295; 84436; 84443; 84479; 85014; 85018

== ENCOUNTER 2024-12-27 07:58 | Emergency (ER) | payer MEDICAID, SELFPAY ==
--- OUTSIDE RECORDS SUMMARY | 2016-02-08 09:15 | XMS_ITS | Encounter Summary ---
[facility] Address [address] [place] [address] Care Team Providers Care Forest Fire Prevention Specialist Name Role Phone Unavailable Primary Care Provider Unavailabl e Reason for Referral * Diagnostic Imaging (Routine) - Closed Specialty Diagnoses / Procedures Referred By Contac t Referred To Contact Radiology Diagnoses Threatened Procedures US Ob Transvaginal Sajan Rubi MD [address] [place] [address] Phone: tel: fax: [address] [address] Phone: tel: fax: Referral ID Status Reason Start Date Expiration Date Visits Re quested Visits Authorized [id number] Closed 02/05/2016 08/03/2016 1 1 Reason for Visit * Diagnostic Imaging (Routine) - Closed Specialty Diagnoses / Procedures Referred By Contac t Referred To Contact Radiology Diagnoses Threatened Procedures US Ob Transvaginal Sajan Rubi MD [address] [place] [address] Phone: tel: fax: [address] [address] Phone: tel: fax: Referral ID Status Reason Start Date Expiration Date Visits Re quested Visits Authorized [id number] Closed 02/05/2016 08/03/2016 1 1 Encounter Details Date Type Department Care Team (Latest Contact Info) Description 02/08/2016 9:15 AM EDT Hospital Encounter [facility] [phone] Threatened Social History Tobacco Use Types Packs/Day [...] Care Team (Late st Contact Info) Description 01/24/2025 9:30 AM EDT Office Visit [facility] [place] [address] Ginny Allen MD [address] [facility] [address] [place] [id number] 02/28/2025 9:30 AM EST Office Visit [facility] [place] [address] Ginny Allen MD [address] [facility] [address] [place], [place] [id number] 03/09/2025 9:15 AM EST Office Visit [facility] ENDOCRINOLOGY [address] [place] [address] Marlee Krishnan, [address] [place] [address] documented as of this encounter Procedures Procedure Name Priority Date/Time Associated Diagnosis Comments US OB TRANSVAGINAL Routine 02/08/2016 9: 52 AM EDT Threatened documented in this encounter Results * US Ob Transvaginal (02/08/2016 9:52 AM EDT) Anatomical Region Laterality Modality Body Ultrasound 02/08/2016 9:35 AM EDT Narrative 02/08/2016 7:00 PM EDT PAT NAME: BRYNN CORRIGAN [facility] REC#: [id number] DA: [id number] PAT GEND: F PAT TYPE: O EXAM ERMELINDA: [id number] REF PHYS SAJAN RUBI Indication ======== Threatened [...] Uterus and ovaries are within normal limits. Foundry Patternmaker Comments Large nabothian cyst, measuring 23 x 22 x 16 mm. An anechoic area is present within the EMC, abnormally shaped for a gestational sac and appears empty. Impression ========= Probable Anembryonic gestation w/ blighted ovum, but an ectopic cannot be ruled out. Recommendation Follow-up as clinically indicated. Foundry Patternmaker: Kandice Hassan RDMS Physician: Didier Villalobos MD Electronically signed by: Didier Villalobos MD at: 19:00 Procedure Note Didier Villalobos MD - 02/08/2016 PAT NAME: BRYNN CORRIGAN MED REC#: [id number] DA: [id number] PAT GEND: F PAT TYPE: O EXAM ERMELINDA: [id number] REF PHYS SAJAN RUBI Indication ======== Threatened [...] Other:Uterus and ovaries are within normal limits. Foundry Patternmaker Comments Large nabothian cyst, measuring 23 x 22 x 16 mm. An anechoic area is present within the EMC, abnormally shaped for agestational sac and appears empty. Impression ========= Probable Anembryonic gestation w/ blighted ovum, but an ectopic pregnancycannot be ruled out. Recommendation Follow-up as clinically indicated. Foundry Patternmaker: Kandice Hassan RDMS Physician: Didier Villalobos MD Electronically signed by: Didier Villalobos MD at: 19:00 us Sajan Rubi MD IMG US ORDERABLES Final Re sult documented in this encounter Visit Diagnoses Diagnosis Threatened documented in this encounter
--- OUTSIDE RECORDS SUMMARY | 2017-01-09 14:00 | XMS_ITS | Encounter Summary ---
Author Organization [facility] Address [address] [place] [address] Care Team Providers Care Retail Sales Assistant Name Role Phone Unavailable Primary Care Provider Unavailabl e Reason for Referral * Diagnostic Imaging (Routine) - Closed Specialty Diagnoses / Procedures Referred By Contac t Referred To Contact Radiology Diagnoses Enlarged uterus Procedures US Non-ob Transvaginal Sajan Rubi MD [address] [place] [address] Phone: tel: fax: [facility] Phone: tel: Referral ID Status Reason Start Date Expiration Date Visits Re quested Visits Authorized [id number] Closed 12/20/2016 12/20/2017 1 1 Reason for Visit * Diagnostic Imaging (Routine) - Closed Specialty Diagnoses / Procedures Referred By Contac t Referred To Contact Radiology Diagnoses Enlarged uterus Procedures US Non-ob Transvaginal Sajan Rubi MD [address] [place] [address] Phone: tel: fax: [facility] Phone: tel: Referral ID Status Reason Start Date Expiration Date Visits Re quested Visits Authorized [id number] Closed 12/20/2016 12/20/2017 1 1 Encounter Details Date Type Department Care Team (Latest Contact Info) Description 01/09/2017 2:00 PM EDT Hospital Encounter [facility] [phone] Enlarged uterus Social History Tobacco Use Types [...] Description 01/24/2025 9:30 AM EDT Office Visit [facility] [place] [address] Ginny Allen MD [address] [address] 02/28/2025 9:30 AM EST Office Visit [facility] OBGYN [address] [place] [address] Ginny Allen MD [address] [address] 03/09/2025 9:15 AM EST Office Visit [facility] ENDOCRINOLOGY [address] [place] [address] Marlee Krishnan, DO [address] [place] [address] documented as of this encounter Procedures Procedure Name Priority Date/Time Associated Diagnosis Comments US NON-OB TRANSVAGINAL Routine 01/09/2017 3:06 PM EDT Enlarged uterus documented in this encounter Results * US Non-ob Transvaginal (01/09/2017 3:06 PM EDT) Anatomical Region Laterality Modality Body Ultrasound 01/09/2017 2:57 PM EDT Narrative 01/09/2017 6:42 PM EDT PAT NAME: BRYNN CORRIGAN [facility] REC#: [id number] DA: [id number] PAT GEND: F PAT TYPE: O EXAM ERMELINDA: [id number] REF PHYS SAJAN RUBI Indication ======== Enlarged [...] 10.8 cm Cul de Sac ========= Normal. Manager Shipping Comments Large nabothian cyst measuring 24 x 23 x 18 mm. Impression ========= The uterus is normal in size. Findings consistent with intramural fibroid(s). The endometrium appears sonographically normal in shape and appearance. Secretory appearing endometrium, consistent with stated menstrual history. Findings consistent with Nabothian cyst(s) of cervix. The ovaries appear sonographically normal in size, shape and morphology. Recommendation Follow-up as clinically indicated. Manager Shipping: Kandice Hassan RDMS Physician: Didier Villalobos MD Electronically signed by: Didier Villalobos MD at: 18:42 Procedure Note Didier Villalobos MD - 01/09/2017 PAT NAME: BRYNN CORRIGAN [facility] REC#: [id number] DA: [id number] PAT GEND: F PAT TYPE: O EXAM ERMELINDA: [id number] REF PHYS SAJAN RUBI Indication ======== Enlarged [...] vol10.8 cm Cul de Sac ========= Normal. Manager Shipping Comments Large nabothian cyst measuring 24 x 23 x 18 mm. Impression ========= The uterus is normal in size. Findings consistent with intramuralfibroid(s). The endometrium appears sonographically normal in shape and appearance. Secretory appearing endometrium, consistent with statedmenstrual history. Findings consistent with Nabothian cyst(s) of cervix. The ovaries appear sonographically normal in size, shape and morphology. Recommendation Follow-up as clinically indicated. Manager Shipping: Kandice Hassan RDMS Physician: Didier Villalobos MD Electronically signed by: Didier Villalobos MD at: 18:42 us Sajan Rubi MD IMG US ORDERABLES Final Re sult documented in this encounter Visit Diagnoses Diagnosis Enlarged uterus Hypertrophy of uterus documented in this encounter
--- OUTSIDE RECORDS SUMMARY | 2024-11-29 10:00 | XMS_ITS | Encounter Summary ---
Author Organization [facility] Address [address] [place] [id number] Care Team Providers Care Supervisor Char House Name Role Phone Nikia Berry APRN Primary Care Provider [phone] Reason for Referral * Diagnostic Imaging (Routine) - Closed Specialty Diagnoses / Procedures Referred By Deni tipton Referred To Contact Obstetrics and Gynecology Diagnoses Fibroids Menorrhagia with regular cycle Procedures US Non-ob Transvaginal Ginny Herndon MD 1700 [facility] [address] [place] [address] Phone: tel: fax: [facility] OBGYN [address] [place] [address] Phone: tel:[phone] fax:[phone] Referral ID Status Reason Start Date Expiration Date Visits Re quested Visits Authorized [id number] Closed 11/29/2024 02/28/2026 1 1 Reason for Visit * Reason Comments Follow-up Menorrhagia Encounter Details Date Type Department Care Team (Late st Contact Info) Description 11/29/2024 10:00 AM EDT Office Visit [facility] OBGYN [address] [place] [address] Ginny Herndon MD [address] [facility] [address] [place] [address] Menorrhagia with regular cycle (Primary Dx); Fibroids; Anxiety; Breast tenderness Social History Tobacco Use Types Packs/Day Years [...] on file documented as of this encounter Last Filed Vital Signs Vital Sign Reading Time Taken Comments Blood Pressure 135/85 11/29/2024 10:14 AM EDT Pulse - - Temperature - - Respiratory Rate - - Oxygen Saturation - - Inhaled Oxygen Concentration - - Weight 89.4 kg (197 lb 3.2 oz) 11/29/2024 10:14 AM EDT Height 157.5 cm (5' 2.01 ) 11/29/2024 10:14 AM E DT Body Mass Index 36.06 11/29/2024 10:14 AM EDT documented in this encounter Progress Notes * Ginny Herndon MD - 11/29/2024 10:00 AM EDT Images from the original note were not included. Gynecologic Exam Note Chief Complaint Patient presents with Follow-up Menorrhagia Subjective HPI Parviz Singh is a 49 y.o. female, , who presents for follow up on menorrhagia. Patient with persistent menorrhagia. She spoke with Dr Herndon on 11/25/24 and was started on Provera TID. She states that this medication helped slow down the bleeding and currently, she is just spotting and has been for the past 2-3 days. She states that she passed a clot yesterday. She also doubledher daily iron supplement as she has a hx of anemia. Patient has a hx of known fibroids. Her last TVUS was 08/16/24. PT also c/o menopausal symptoms of VMS, etc. She is feeling horrible with this. She also c/o lifelong anxiety that is exacerbated currently. She is interested in starting a daily med for the anxiety.She has never been on meds for this, but has struggled with anxiety her whole life. Patient's last menstrual period was 11/23/2024 (exact date).. Periods are regular every 28-30 days,heavy in flow, lasting 4-8 days. Pt also c/o breast tenderness on the left breast. No mass noted, no skin changes. The tenderness has been present for 2-3 days and does coincide with when she started the provera. 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 Current contraception: contraceptive methods: Vasectomy Last Pap : Last Completed Pap Smear Upcoming PAP SMEAR (Every 3 Years) Next due on 05/06/2027 05/06/2024 LIQUID-BASED PAP SMEAR WITH HPV GENOTYPING REGARDLESS OF INTERPRETATION (ZAKIYA,COR,MAD) 12/20/2016 Pap IG, Ct-Ng TV Rfx HPV ASCU Last mammogram: Last Completed Mammogram Upcoming MAMMOGRAM (Every 2 Years) Next due on 06/01/2026 06/01/2024 Mammo Screening Digital Tomosynthesis Bilateral With CAD 04/23/2022 MAMMO Outside Films Tobacco Usage?: No OB History 7 Para 3 Term 3 0 AB 3 Living 4 SAB 3 IAB 0 Ectopic 0 Molar Multiple 0 Live Births 4 Obstetric Comments 1995 - Brie (f) 1999 - Bertin 2005 - Brian (m) Health Maintenance Topic Date Due TDAP/TD VACCINES (1 - Tdap) Never done ANNUAL PHYSICAL Never done COLORECTAL CANCER SCREENING Never done LIPID PANEL 07/17/2023 COVID-19 Vaccine (1 - 2023- season) Never done Pneumococcal Vaccine 50+ (1 of 1 - PCV) Never done ZOSTER VACCINE (1 of 2) Never done INFLUENZA VACCINE 01/05/2025 Annual Gynecologic Pelvic and Breast Exam 05/07/2025 MAMMOGRAM 06/01/2026 PAP SMEAR 05/06/2027 HEPATITIS C SCREENING Completed The additional following portions of the patient's history were reviewed and updated as appropriate: allergies, current medications, past family history, past medical history, past social history, past surgical history, and problem list. Review of Systems I have reviewed and agree with the HPI, ROS, and historical information as entered above. Ginny Herndon MD Objective BP 135/85 Ht 157.5 cm (62.01 ) Wt 89.4 kg (197 lb 3.2 oz) LMP 11/23/2024 (Exact Date) BMI 36.06 kg/m?? Physical Exam Vitals and nursing note reviewed. Exam conducted with a per diem clerk present. HENT: Head: Normocephalic and atraumatic. Pulmonary: Effort: Pulmonary effort is normal. No respiratory distress or retractions. Chest: Chest wall: No mass. Breasts: Right: No swelling, bleeding, inverted nipple, mass, nipple discharge, skin change or tenderness. Left: Tenderness (in noted area) present. No swelling, bleeding, inverted nipple, mass, nipple discharge or skin change. Lymphadenopathy: Upper Body: Right upper body: No supraclavicular or axillary adenopathy. Left upper body: No supraclavicular or axillary adenopathy. Neurological: Mental Status: She is alert. Psychiatric: Mood and Affect: Mood and affect normal. Speech: Speech normal. Assessment & Plan Assessment Problem List Items Addressed This Visit Anxiety Relevant Medications escitalopram (Lexapro) 10 MG tablet Menorrhagia with regular cycle - Primary Relevant Medications Ferrous Sulfate ER 45 MG tablet controlled-release Tranexamic Acid (Lysteda) 650 MG tablet escitalopram (Lexapro) 10 MG tablet Other Relevant Orders CBC & Differential Ferritin Iron Profile Comprehensive Metabolic Panel US Non-ob Transvaginal Other Visit Diagnoses Fibroids Relevant Medications Ferrous Sulfate ER 45 MG tablet controlled-release Tranexamic Acid (Lysteda) 650 MG tablet Other Relevant Orders US Non-ob Transvaginal Breast tenderness Plan Return in about 2 weeks (around 12/13/2024) for EMB and u/s. Pt declines EMB today as she is still spotting and cramping, will return for this. The need to r/o hyperplasia/CA,e tc was reviewed with her today. Pt responded well to TID provera, acute bleeding almost resolved, only spotting currently. Treatment options reviewed with pt again today including POP, Mirena, OCPs, Lysteda, etc. She has rx for micronor at home from prior visit, but had never started it. She would like to start with thistreatment. WE plan to wean her provera down and begin the micronor. She can use lysteda if still having severe period with her next cycle. We will evaluate her fibroid and possiblity of IUD at her follow up. Perimenopause and menopause d/w pt in detail, treatment options reviewed and pros/cons d/w pt as well. Potential risk for thromboembolic events with Lysteda was discussed with patient. Patient counseled that hormone treatment should be used to help with specific symptoms related to menopause such as hot flashes, night sweats and vaginal atrophy. The lowest dose hormone that treats symptoms should be used for the shortest amount of time possible. Although estrogen is the most effective treatment for hot flashes, other non hormonal options exist (such as Veozah, Brisdelle or venlafaxine) and should also be considered. Anyone with an intact uterus should also receive progestogento prevent uterine overgrowth that can lead to uterine cancer. All hormone therapy, whether it is synthetic or bio identical, can lead to increased risk of thromboembolic diseases such as DVT, pulmonary embolism, stroke, heart attack and . These adverse events are more likely to develop in thefirst year of use and in patients who are older than the typical menopausal age. Risks of estrogen dependent cancers such as breast cancer increase with prolonged use. Attempts to wean hormone therapy should be discussed annually and particularly after three to five years of use. Any side effects such as vaginal bleeding or pain should be reported immediately. Patient with recent left-sided breast tenderness that does coincide with her initiating Provera. Nomass noted on exam, but tenderness present. We discussed proceeding with a diagnostic mammogram if this remains. As patient is weaning off the progesterone we will see if the tenderness resolves. If it does not resolve we will proceed with diagnostic imaging. I spent 33 minutes caring for Parviz on this date of service. This time includes time spent by me in the following activities: preparing for the visit, reviewing tests, performing a medically appropriate examination and/or evaluation, counseling and educating the patient/family/caregiver, and documenting information in the medical record Ginny Herndon MD 11/29/2024 documented in this encounter Plan of Treatment Upcoming Encounters Date Type Department Care Team (Late st Contact Info) Description 01/24/2025 9:30 AM EDT Office Visit [facility] OBGYN [address] [place] [address] Ginny Herndon MD [facility] [address] [place] [address] 02/28/2025 9:30 AM EST Office Visit [facility] OBGYN [address] [place] [address] Ginny Herndon MD [address] [place] [address] 03/09/2025 9:15 AM EST Office Visit [facility] ENDOCRINOLOGY [address] [place] [phone] PacMarlee bartholomew, DO [address] [place], [place] [id number] documented as of this encounter Procedures Procedure Name Priority Date/Time Associated Diagnosis Comments IRON PROFILE Routine 12/02/2024 1:24 PM EDT Menorrhagia with regular cycle CBC AND DIFFERENTIAL Routine 12/02/2024 1:24 PM EDT Menorrhagia with regular cycle FERRITIN Routine 12/02/2024 1:24 PM EDT Menorrhagia with regular cycle COMPREHENSIVE METABOLIC PANEL Routine 12/02/2024 1:24 PM EDT Menorrhagia with regular cycle documented in this encounter Results * US Non-ob Transvaginal (12/20/2024 9:31 AM EDT) Anatomical Region Laterality Modality Body Ultrasound 12/20/2024 9:02 AM EDT Narrative 12/20/2024 3:00 PM EDT PAT NAME: PARVIZ SINGH MED REC#: [id number] DA: [id number] PAT GEND: F PAT TYPE: O EXAM ERMELINDA: [id number] REF PHYS GINNY HERNDON Indication ======== Fibroids Comparison Studies The findings of this study are compared to the prior ultrasound study dated 08/16/24 History ====== Previous Outcomes 5 Para 3 Miscarriages 2 Method ======= Voluson E6, Transvaginal ultrasound examination. View: Limited view due to multiple large fibroids and patient body habitus. Uterus ====== Uterus: Visualized Uterus position: Anteverted Description of uterine malformations: none Myometrium: Fibroids are present Endometrium: Uniform Cervix details: Nabothian cyst noted Uterus long 137 mm Uterus ap 92 mm Uterus tr 104 mm Uterus Vol 683.7 cm Endometrial thickness, total 8.5 mm Uterine fibroid D1 63.3 mm Uterine fibroid D2 55.2 mm Uterine fibroid D3 69.3 mm Uterine fibroid vol 126.721 cm Uterine fibroids findings: Posterior Uterine fibroid D1 36.3 mm Uterine fibroid D2 24.4 mm Uterine fibroid D3 27.1 mm Uterine fibroid vol 12.531 cm Uterine fibroids findings: Posterior. FF surrounding Uterine fibroid D1 19.2 mm Uterine fibroid D2 14.6 mm Uterine fibroid D3 14.1 mm Uterine fibroid vol 2.054 cm Uterine fibroids findings: Anterior Uterine fibroid D1 21.4 mm Uterine fibroid D2 15.3 mm Uterine fibroid D3 16.9 mm Uterine fibroid vol 2.893 cm Uterine fibroids findings: Posterior Right Ovary Rt ovary: Visualized Rt ovary details: seen better transabdominally Rt ovary D1 19.0 mm Rt ovary D2 19.1 mm Rt ovary D3 12.1 mm Rt ovary Vol 2.3 cm Left Ovary ========= Lt ovary: Visualized Lt ovary details: seen transabdominally only Lt ovary D1 31.2 mm Lt ovary D2 23.2 mm Lt ovary D3 22.10 mm Lt ovary Vol 8.4 cm Cul de Sac Visualized. No free fluid visualized Impression The uterus is enlarged. There are multiple fibroids present and a single large posterior submucosal fibroid. This is stable in size. The ovaries appear sonographically normal in size, shape and morphology Recommendation Follow-up as clinically indicated. Industrial Conveyor Belt Repairer: RT Bj(R), [place] Physician: Ginny Herndon MD, FACOG Electronically signed by: Ginny Herndon MD, FACOG at: 15:00 Procedure Note Ginny Herndon MD - 12/20/2024 PAT NAME: PARVIZ SINGH [facility] REC#: [id number] DA: [id number] PAT GEND: F PAT TYPE: O EXAM ERMELINDA: [id number] REF PHYS GINNY HERNDON Indication ======== Fibroids Comparison Studies The findings of this study are compared to the prior ultrasound studydated 08/16/24 History ====== Previous Outcomes Gravida5 Para3 Miscarriages2 Method ======= Voluson E6, Transvaginal ultrasound examination. View: Limited view due tomultiple large fibroids and patient body habitus. Uterus ====== Uterus:Visualized Uterus position:Anteverted Description of uterine malformations:none Myometrium:Fibroids are present Endometrium:Uniform Cervix details:Nabothian cyst noted Uterus nret400 mm Uterus ap92 mm Uterus tr104 mm Uterus Nuh358.7 cm Endometrial thickness, total8.5 mm Uterine fibroid D163.3 mm Uterine fibroid D255.2 mm Uterine fibroid D369.3 mm Uterine fibroid jcg978.721 cm Uterine fibroids findings:Posterior Uterine fibroid D136.3 mm Uterine fibroid D224.4 mm Uterine fibroid D327.1 mm Uterine fibroid vol12.531 cm Uterine fibroids findings:Posterior. FF surrounding Uterine fibroid D119.2 mm Uterine fibroid D214.6 mm Uterine fibroid D314.1 mm Uterine fibroid vol2.054 cm Uterine fibroids findings:Anterior Uterine fibroid D121.4 mm Uterine fibroid D215.3 mm Uterine fibroid D316.9 mm Uterine fibroid vol2.893 cm Uterine fibroids findings:Posterior Right Ovary Rt ovary:Visualized Rt ovary details:seen better transabdominally Rt ovary D119.0 mm Rt ovary D219.1 mm Rt ovary D312.1 mm Rt ovary Vol2.3 cm Left Ovary ========= Lt ovary:Visualized Lt ovary details:seen transabdominally only Lt ovary D131.2 mm Lt ovary D223.2 mm Lt ovary D322.10 mm Lt ovary Vol8.4 cm [place] Sac Visualized. No free fluid visualized Impression The uterus is enlarged. There are multiple fibroids present and a singlelarge posterior submucosal fibroid. This is stable in size. The ovariesappear sonographically normal in size, shape and morphology Recommendation Follow-up as clinically indicated. Industrial Conveyor Belt Repairer: RT Bj(R), [facility] Physician: Ginny Herndon MD, FACOG Electronically signed by: Ginny Herndon MD, FACOG at: 15:00 us Ginny Herndon MD [facility] [place] ORDERABLES Final Result * Comprehensive Metabolic Panel (12/02/2024 1:24 PM EDT) Glucose 89 70 - 99 mg/dL [facility] BUN 9 6 - 24 mg/dL [facility] Creatinine 0.79 0.57 - 1.00 mg/dL [facility] EGFR Result 91 >59 mL/min/1.7 3 [facility] BUN/Creatinine Ratio 11 9 - 23 [facility] Sodium 139 134 - 144 mmol/L [facility] Potassium 4.1 3.5 - 5.2 mmol/L [facility] Chloride 102 96 - 106 mmol/L [facility] Total CO2 22 20 - 29 mmol/L [facility] Calcium 9.7 8.7 - 10.2 mg/dL [facility] Total Protein 7.6 6.0 - 8.5 g/dL [facility] Albumin 4.6 3.9 - 4.9 g/dL [facility] Globulin 3.0 1.5 - 4.5 g/dL [facility] Total Bilirubin 0.3 0.0 - 1.2 mg/dL [facility] Alkaline Phosphatase 63 44 - 121 IU/L [facility] AST (SGOT) 13 0 - 40 IU/L [facility] ALT (SGPT) 14 0 - 32 IU/L [facility] Blood 12/02/2024 1:24 PM EDT 12/02/2024 Narrative [facility] (AMBULATORY) - 12/03/2024 8:12 AM EDT Performed at: [address] [place] [id number] Stenotypist: Tommy Benjamin PhD, Phone: [phone] Patient Fasting: N us Ginny Herndon MD LAB BLOOD ORDERABLES Final Resul t Performing Organization Address City/[facility]/ZIP Co de Phone Number [facility] [address] [place] [address], [facility] [address] [place] [address], [place] [phone] * (ABNORMAL) Iron Profile (12/02/2024 1:24 PM EDT) [facility] TIBC 347 250 - 450 ug/dL [facility] UIBC 322 131 - 425 ug/dL [facility] Iron 25(L) 27 - 159 ug/dL [facility] Iron Saturation 7(L) 15 - 55 % [facility] Blood 12/02/2024 1:24 PM EDT 12/02/2024 Narrative [facility] (AMBULATORY) - 12/03/2024 8:12 AM EDT Performed at: [address] [place] [id number] Stenotypist: Tommy Benjamin PhD, Phone: [phone] Patient Fasting: N us Ginny Herndon MD LAB BLOOD ORDERABLES Final Resul t [facility] [address] [place] [address], [place] [phone] [facility] [address] [place] [address], [place] [phone] * Ferritin (12/02/2024 1:24 PM EDT) Pathologist [facility] Ferritin 30 15 - 150 ng/mL [facility] Blood 12/02/2024 1:24 PM EDT 12/02/2024 Narrative [facility] (AMBULATORY) - 12/03/2024 8:12 AM EDT Performed at: 01 - [facility] [address] [place] [id number] Stenotypist: Tommy Benjamin PhD, Phone: [phone] Patient Fasting: N us Ginny Herndon MD LAB BLOOD ORDERABLES Final Resul t [facility] (AMBULATORY) [address] [place] [address], [facility] [address] [place] [address], * CBC & Differential (12/02/2024 1:24 PM EDT) [facility] WBC 6.6 3.4 - 10.8 x10E3/uL [facility] RBC 4.72 3.77 - 5.28 x10E6/uL [facility] Hemoglobin 13.2 11.1 - 15.9 g/dL [facility] Hematocrit 41.4 34.0 - 46.6 % [facility] MCV 88 79 - 97 fL [facility] MCH 28.0 26.6 - 33.0 pg [facility] MCHC 31.9 31.5 - 35.7 g/dL [facility] RDW 13.2 11.7 - 15.4 % [facility] Platelets 448 150 - 450 x10E3/uL [facility] Neutrophil Rel % 47 Not Estab. % [facility] Lymphocyte Rel % 41 Not Estab. % [facility] Monocyte Rel % 7 Not Estab. % [facility] Eosinophil Rel % 2 Not Estab. % [facility] Basophil Rel % 2 Not Estab. % [facility] Neutrophils Absolute 3.1 1.4 - 7.0 x10E3/uL [facility] Lymphocytes Absolute 2.7 0.7 - 3.1 x10E3/uL [facility] Monocytes Absolute 0.4 0.1 - 0.9 x10E3/uL [facility] Eosinophils Absolute 0.2 0.0 - 0.4 x10E3/uL [facility] Basophils Absolute 0.1 0.0 - 0.2 x10E3/uL [facility] Immature Granulocyte Rel % 1 Not Estab. % [facility] Immature Grans Absolute 0.0 0.0 - 0.1 x10E3/uL [facility] Blood 12/02/2024 1:24 PM EDT 12/02/2024 Narrative [facility] ([facility]) - 12/03/2024 7:10 AM EDT Performed at: 01 - [facility] [address] [place], [place] [id number] Stenotypist: Tommy Benjamin PhD, Phone: [phone] Patient Fasting: N us Ginny Herndon MD LAB BLOOD ORDERABLES Final Resul t [facility] (AMBULATORY) [address] [place] [address], [place] [phone] [facility] [address] [place] [address], [place] [phone] documented in this encounter Visit Diagnoses Diagnosis Menorrhagia with regular cycle- Primary Fibroids Leiomyoma of uterus, unspecified Anxiety Anxiety state, unspecified Breast tenderness Mastodynia Fibroids Leiomyoma of uterus, unspecified Menorrhagia with regular cycle documented in this encounter Care Teams Supervisor Char House Relationship Specialty Start Date End Date Nikia Berry APRN [address] [place] [address] PCP - General Nurse Practitioner 06/01/24 documented as of this encounter
--- OUTSIDE RECORDS SUMMARY | 2024-12-02 13:05 | XMS_ITS | Encounter Summary ---
Author Organization [facility] Address [address] [place] [id number] Care Team Providers Care Speed Winder Name Role Phone Nikia Berry APRN Primary Care Provider [phone] Encounter Details Date Type Department Care Team (Late Contact Info) Description 12/02/2024 1:05 PM EDT Lab [facility] OBGYN [place] [address] Social History Tobacco Use Types Packs/Day Years [...] Encounters Date Type Department Care Team (Late Contact Info) Description 01/24/2025 9:30 AM EDT Office Visit [facility] OBGYN [address] [place] [address] Ginny Allen MD [address] [address] 02/28/2025 9:30 AM EST Office Visit [facility] OBGYN [address] [place] [address] Ginny Allen MD [address] [place] [address] 03/09/2025 9:15 AM EST Office Visit [facility]OLOGY [address] [facility] [address] [place] [address] Marlee Krishnan, DO [address] [facility] [address] [place] [address] documented as of this encounter Visit Diagnoses Not on filedocumented in this encounter Care Teams Speed Winder Relationship Specialty Start Date End Date Nikia Berry APRN [address] [place], [place] [address]boby [place] [address] PCP - General Nurse Practitioner 06/01/24 documented as of this encounter
--- OUTSIDE RECORDS SUMMARY | 2024-12-20 09:30 | XMS_ITS | Encounter Summary ---
Author Organization [facility] Address [address] [place] [address] Care Team Providers Care Neon Sign Mechanic Name Role Phone Nikia Berry SALVADOR Primary Care Provider [phone] Reason for Visit * Diagnostic Imaging (Routine) - Closed Specialty Diagnoses / Procedures Referred By Deni tipton Referred To Contact Obstetrics and Gynecology Diagnoses Fibroids Menorrhagia with regular cycle Procedures US Non-ob Transvaginal Kai Herndon MD 17[address] [facility] [address] [place] [address] Phone: tel: fax: [facility] OBGYN [address] [place] [address] Phone: tel:[phone] fax:[phone] Referral ID Status Reason Start Date Expiration Date Visits Re quested Visits Authorized [id number] Closed 11/29/2024 02/28/2026 1 1 Encounter Details Date Type Department Care Team (Latest Contact Info) Description 12/20/2024 9:30 AM EDT Ancillary Procedure [facility] OBGYN [address] [place] [address] Fibroids; Menorrhagia with regular cycle Social History Tobacco Use Types Packs/Day Years [...] Description 01/24/2025 9:30 AM EDT Office Visit [facility] OBGYN [address] [place] [address] Kai Herndon MD 17[address] [facility] [address] [place] [address] 02/28/2025 9:30 AM EST Office Visit [facility] OBGYN [address] [place] [address] Kai Herndon MD [address] [facility] [address] [place] [address] 03/09/2025 9:15 AM EST Office Visit [facility] ENDOCRINOLOGY [address] [place] [address] PacMarlee bartholomew, DO [address] [place], [place] [id number] documented as of this encounter Procedures Procedure Name Priority Date/Time Associated Diagnosis Comments US NON-OB TRANSVAGINAL Routine 12/20/2024 9:31 AM EDT Fibroids Menorrhagia with regular cycle documented in this encounter Results * US Non-ob Transvaginal (12/20/2024 9:31 AM EDT) Anatomical Region Laterality Modality Body Ultrasound 12/20/2024 9:02 AM EDT Narrative 12/20/2024 3:00 PM EDT PAT NAME: BRYNN SINGH MED REC#: [id number] DA: [id number] PAT GEND: F PAT TYPE: O EXAM ERMELINDA: [id number] REF PHYS KAI HERNDON Indication ======== Fibroids Comparison Studies The [...] and morphology Recommendation Follow-up as clinically indicated. Assembler Cards And Announcements: RT Bj(R), [facility] Physician: Kai Herndon MD, FACOG Electronically signed by: Kai Herndon MD, FACOG at: 15:00 Procedure Note Kai Herndon MD - 12/20/2024 PAT NAME: BRYNN SINGH [facility] REC#: [id number] DA: [id number] PAT GEND: F PAT TYPE: O EXAM ERMELINDA: [id number] REF PHYS KAI HERNDON Indication ======== Fibroids Comparison Studies The findings of this study are compared to the prior ultrasound studydated 08/16/24 History ====== Previous Outcomes Gravida5 Para3 Miscarriages2 Method ======= Voluson E6, Transvaginal ultrasound examination. View: Limited view due tomultiple large fibroids and patient body habitus. Uterus ====== Uterus:Visualized Uterus position:Anteverted Description of uterine malformations:none Myometrium:Fibroids are present Endometrium:Uniform Cervix details:Nabothian cyst noted Uterus iwdr722 mm Uterus ap92 mm Uterus tr104 mm Uterus Zpb123.7 cm Endometrial thickness, total8.5 mm Uterine fibroid D163.3 mm Uterine fibroid D255.2 mm Uterine fibroid D369.3 mm Uterine fibroid prv419.721 cm Uterine fibroids findings:Posterior Uterine fibroid D136.3 [...] and morphology Recommendation Follow-up as clinically indicated. Assembler Cards And Announcements: Anh Hernandez RT(R), [facility] Physician: Kai Herndon MD, FACOG Electronically signed by: Kai Herndon MD, FACOG at: 15:00 us Kai Herndon MD IMG US ORDERABLES Final Result documented in this encounter Visit Diagnoses Diagnosis Fibroids Leiomyoma of uterus, unspecified Menorrhagia with regular cycle documented in this encounter Care Teams Neon Sign Mechanic Relationship Specialty Start Date End Date Nikia Berry APRN [address] [place] [address] PCP - General Nurse Practitioner 06/01/24 documented as of this encounter
--- OUTSIDE RECORDS SUMMARY | 2024-12-20 10:10 | XMS_ITS | Encounter Summary ---
Author Organization [facility] Address [address] [place] [address] Care Team Providers Care Computer Systems Software Engineer Name Role Phone Nikia Berry APRN Primary Care Provider [phone] Reason for Visit * Reason Comments Follow-up Uterine fibroid and EMB Encounter Details Date Type Department Care Team (Late st Contact Info) Description 12/20/2024 10:10 AM EDT Office Visit [facility] OBGYN [address] [place] [address] Ginny Allen MD 1700 [facility] [address] [place] [address] Encounter for biopsy (Primary Dx); ASCUS with positive high risk HPV cervical; Abnormal uterine bleeding (AUB); Menorrhagia with regular cycle; Fibroids, submucosal; Intramural leiomyoma of uterus; Bulky or enlarged uterus Social History Tobacco Use Types Packs/Day [...] Sign Reading Time Taken Comments Blood Pressure 112/76 12/20/2024 10:04 AM EDT Pulse - - Temperature - - Respiratory Rate - - Oxygen Saturation - - Inhaled Oxygen Concentration - - Weight 90.6 kg (199 lb 12.8 oz) 025 10:04 AM EDT Height 157.5 cm (5' 2.01 ) 12/20/2024 1 0:04 AM EDT Body Mass Index 36.53 12/20/2024 10:04 AM EDT documented in this encounter Progress Notes * Ginny Allen MD - 12/20/2024 10:10 AM EDT Images from the original note were not included. Gynecologic Exam Note Chief Complaint Patient presents with Follow-up Uterine fibroid and EMB Subjective HPI Brynn Singh is a 49 y.o. female, , who presents for follow up on menorrhagia, uterinefibroids and an endometrial biopsy. At her previous visit on 11/29/24 the patient was seen for follow up on persistent menorrhagia. At that time her bleeding had improved with the Provera. The plan was to wean provera down and start Micronor. Also to return to office in 2 weeks for an U/S to evaluate her fibroids and for EMB. She states that she did wean off the Provera but did not start the Micronor. She has not had another period yet but anticipates starting this week. She plans to use the Lysteda to help with her upcoming period. Patient's last menstrual period was 11/23/2024 (exact date). Her Periods are every 28-30 days, heavy in flow, lasting 4-8 days. Dysmenorrhea:moderate, occurring throughout menses. Patient reports problems with: none. Partner Status: Marital Status: . 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 Current contraception: contraceptive methods: Vasectomy Desires to: do not start contraception Last Pap : 05/06/24-ASCUS HPV pool + Last Completed Pap Smear Upcoming PAP SMEAR (Every 3 Years) Next due on 05/06/2027 05/06/2024 LIQUID-BASED PAP SMEAR WITH HPV GENOTYPING REGARDLESS OF INTERPRETATION (ZAKIYA,COR,MAD) 12/20/2016 Pap IG, Ct-Ng TV Rfx HPV ASCU History of abnormal Pap smear: yes - last pap 05/06/24- ASCUS HPV pool + needs colpo Last mammogram: 06/01/24- benign findings Last Completed Mammogram Upcoming MAMMOGRAM (Every 2 Years) Next due on 06/03/2026 06/03/2024 Registry Metric: Last Mammogram Date 06/01/2024 Mammo Screening Digital Tomosynthesis Bilateral With [...] CANCER SCREENING Never done LIPID PANEL 07/17/2023 Pneumococcal Vaccine 50+ (1 of 1 - PCV) Never done ZOSTER VACCINE (1 of 2) Never done COVID-19 Vaccine (1 - 2023- season) Never done INFLUENZA VACCINE 01/05/2025 Annual Gynecologic Pelvic and Breast Exam 05/07/2025 MAMMOGRAM 06/03/2026 PAP SMEAR 05/06/2027 HEPATITIS C SCREENING Completed The additional following portions of the patient's history were reviewed and updated as appropriate: allergies and current medications. Review of Systems I have reviewed and agree with the HPI, ROS, and historical information as entered above. Ginny Allen MD Objective BP 112/76 Ht 157.5 cm (62.01 ) Wt 90.6 kg (199 lb 12.8 oz) LMP 11/23/2024 (Exact Date) BMI 36.53 kg/m?? Physical Exam Vitals and nursing note reviewed. Constitutional: General: She is not in acute distress. Appearance: Normal appearance. HENT: Head: Normocephalic and atraumatic. Pulmonary: Effort: Pulmonary effort is normal. No accessory muscle usage or respiratory distress. Neurological: Mental Status: She is alert and oriented to person, place, and time. Psychiatric: Mood and Affect: Mood and affect normal. Speech: Speech normal. Assessment & Plan Assessment Problem List Items Addressed This Visit Menorrhagia with regular cycle Relevant Medications Ferrous Sulfate ER 45 MG tablet controlled-release escitalopram (Lexapro) 10 MG tablet Tranexamic Acid (Lysteda) 650 MG tablet Other Visit Diagnoses Encounter for biopsy - Primary Relevant Orders POC , Urine (Completed) ASCUS with positive high risk HPV cervical Abnormal uterine bleeding (AUB) Fibroids, submucosal Intramural leiomyoma of uterus Bulky or enlarged uterus Plan Return for Preop Appt. we plan hysteroscopy, dilation and curettage and colposcopy Patient presents today for endometrial biopsy and repeat ultrasound to follow fibroids. On transvaginal ultrasound today she is again noted to have a bulky enlarged uterus and a large posterior submucosal fibroid. This is stable in size and today measures 6.9 cm in size. Today several other smallerfibroids are noted with the largest of these measuring 3.6 cm. Bilateral ovaries are within normal limits. Patient declines endometrial biopsy today secondary to severe anxiety. She is interested in having this performed under anesthesia. We discussed evaluation with hysteroscopy and D&C and she would like to proceed with this. It was also noted that the patient previously had an ASCUS, HPV positive Pap and was scheduled for colposcopy in May. She did not keep this appointment. We discussed adding the colposcopy on in the OR. Patient is interested in possible hysterectomy. We discussed her enlarged uterus and large fibroidsand reviewed the treatment option of Lupron with add back therapy. We discussed potential bone lossand irregular bleeding spotting and the increase of vasomotor symptoms. We did review the pros of overall decreasing the size of her uterus and fibroids and aiding in her operative procedure. She would like to begin this therapy. I spent 31 minutes caring for Brynn on this date of service. This time includes time spent by me in the following activities: preparing for the visit, reviewing tests, performing a medically appropriate examination and/or evaluation, counseling and educating the patient/family/caregiver, documenting information in the medical record, and ordering medications Ginny Allen MD 12/20/2024 documented in this encounter Plan of Treatment Upcoming Encounters Date Type Department Care Team (Late st Contact Info) Description 01/24/2025 9:30 AM EDT Office Visit [facility] [place]BGYN [place] [address] Ginny Allen MD [address] [place] [address] 02/28/2025 9:30 AM EST Office Visit [facility] OBGYN [address] [place] [address] Ginny Allen MD [address] [facility] [address] [place] [address] 03/09/2025 9:15 AM EST Office Visit [facility] ENDOCRINOLOGY [address] [place] [address] Marlee Krishnan, DO [address] [place] [address] documented as of this encounter Procedures Procedure Name Priority Date/Time Associated Diagnosis Comments POCT PEFORM URINE Routine 12/20/2024 9:59 AM EDT Encounter for biopsy documented in this encounter Results * POC , Urine (12/20/2024 9:59 AM EDT) HCG, Urine, QL Negative Negative [facility] Lot Number [id number] [facility] Internal Positive Control Positive Positive, Passed [facility] Internal Negative Control Negative Negative, Passed [facility] Expiration Date [facility] Urine 12/20/2024 9:59 AM EDT us Ginny Allen MD POINT OF CARE TEST ORDERABLES Fi nal Result [facility]
[address] [place] [address], documented in this encounter Visit Diagnoses Diagnosis Encounter for biopsy- Primary ASCUS with positive high risk HPV cervical Abnormal uterine bleeding (AUB) Menorrhagia with regular cycle Fibroids, submucosal Submucous leiomyoma of uterus Intramural leiomyoma of uterus Bulky or enlarged uterus Hypertrophy of uterus documented in this encounter Care Teams Computer Systems Software Engineer Relationship Specialty Start Date End Date Nikia Berry APRN [address] [place] [address] [place], [place] [id number] PCP - General Nurse Practitioner 06/01/24 documented as of this encounter
[2024-12-27 07:58] VITALS: BP 183/109; PULSE 90; RESP 18; TEMP 36.9; O2SAT 98; BMI 34.9
--- OUTSIDE RECORDS SUMMARY | 2024-12-27 08:03 | XMS_ITS | Encounter Summary ---
Author Organization [facility] Address [address] [place] [address] Care Team Providers Care Cardiothoracic Surgeon Name Role Phone Nikia Berry APRN Primary Care Provider [phone] Reason for Visit * Reason Onset Date Comments DR. KATRINA PA SAME DAY 09/27/2024 Encounter Details Date Type Department Care Team (Late st Contact Info) Description 09/27/2024 Telephone [facility] OBGYN [address] [facility] [address] [place] [address] Ginny Allen MD 1700 [facility] [address] [place] [address] DR. KATRINA PA SAME DAY Social History [...] SINGH Relationship: SELF Best call back number: [phone] PATIENT CALLED REQUESTING TO CANCEL SAME DAY [...] Description 01/24/2025 9:30 AM EDT Office Visit [facility] OBGYN [address] [place] [address] Ginny Allen MD [address] [address] 02/28/2025 9:30 AM EST Office Visit [facility] OBGYN [address] [place] [address] Ginny Allen MD [address] [address] 03/09/2025 9:15 AM EST Office Visit [facility] ENDOCRINOLOGY [address] [place] [address] Marlee Krishnan, [address] [place] [address] documented as of this encounter Visit Diagnoses Not on filedocumented in this encounter Care Teams Cardiothoracic Surgeon Relationship Specialty Start Date End Date Nikia Berry APRN [address] [place] [address] [place], [place] [id number] PCP - General Nurse Practitioner 06/01/24 documented as of this encounter
--- OUTSIDE RECORDS SUMMARY | 2024-12-27 08:03 | XMS_ITS | Referral Summary ---
Author Organization [employer] ([place], [place], [place], [place]) Address [address] [place] [address] Care Team Providers Care Robotic Welder Name Role Phone Marisol Uribe MD Primary Care Provider [phone] Allergies Active Allergy Reactions Criticality Noted Date [...] Date Federico rded Speak language other than Italian at home Not on file 04/16/2023 Want [...] - 07/17/2022 4:06 AM EDT Performed at: [address] [place] [id number] Invasive Cardiovascular Technologist: Tommy Benjamin PhD, Phone: [phone] us Marisol Uribe MD LAB BLOOD ORDERABLES Final Res ult [facility] * HM MAMMOGRAPHY (04/23/2022) Anatomical Region Laterality Modality Other us Marisol Uribe MD HEALTH MAINTENANCE Final Resul t from Last 3 Months or Most Recently Relevant to Health Maintenance Insurance [facility] Care Teams Robotic Welder Relationship Specialty Start Date End Date Marisol Uribe MD [address] [facility] [address] [place] [id number] PCP - General Family Medicine 03/14/22
--- OUTSIDE RECORDS SUMMARY | 2024-12-27 08:03 | XMS_ITS | Clinical Summary ---
Author Organization [facility] Address [address] [place] [address] Care Team Providers Care Outside Event Sales Specialist Name Role Phone Cristi Lee MD Primary Care Provider [phone] Allergies Active Allergy Reactions Criticality Noted Date [...] 2019 Sigmoidoscopy 2019 [facility]-Colorectal Cancer Screening 2019 [facility]-Breast Cancer Screening 02/13/2024 [facility]-Pneumococcal Vaccine: 50 + Years (1 of 1 - PCV) 02/13/2024 [facility]-Zoster Vaccines (1 of 2) 02/13/2024 [id number] Vaccine (1 - 20 24-25 season) 2024 [facility]-Influenza Vaccine (#1) 2024 [facility]-HIV Screening Completed [...] ORDERABLES Final Re sult Performing Organization Address City/State/[facility] Co de Phone Number [facility] * Hepatitis C Antibody (10/16/2017 12:36 PM EDT) Hepatitis C Antibody NEGATIVE Reference Range: Negative [facility] 10/16/2017 12:3 6 PM EDT 10/16/2017 6:08 PM EDT us Cande Morales MD LAB BLOOD ORDERABLES Final Re sult Performing Organization Address City/[facility] Co de Phone Number SUNQUEST from Last 3 Months or Most Recently Relevant to Health Maintenance Insurance [facility] MEDICAID Care Teams Outside Event Sales Specialist Relationship Specialty Start Date End Date Cristi Lee MD [address] [place] [id number] PCP - General 08/18/20
--- OUTSIDE RECORDS SUMMARY | 2024-12-27 08:03 | XMS_ITS | Clinical Summary ---
Author Organization [employer] ([place], [place], [place], [place]) Address [address] [place] [address] Care Team Providers Care Physical Director Name Role Phone Marisol Uribe MD Primary Care Provider [phone] Allergies Active Allergy Reactions Criticality Noted Date [...] Date Federico rded Speak language other than Czech at home Not on file 04/16/2023 Want [...] Tobacco Cessation Counseling and Screening (12+) 05/2705/27/2022 Pneumococcal 50+ years (1 of 1 - PCV) 02/13/2024 Shingles Vaccine (Zoster) (1 of 2) 02/13/2024 Breast Cancer Screening 04/23/2024 04/23/2022 COVID-19 VACCINE (1 - season) 2024 Influenza Vaccine (#1) 2024 Lipid Panel 07/16/2025 07/16/2022 Procedures Procedure Name Priority Date/Time Associated Diagnosis Comments LIPID PANEL Routine 07/16/2022 12:17 PM EDT Benign essential hypertension Hyperlipidemia, unspecified hyperlipidemia type Diffuse thyroid goiter without thyrotoxicosis MAMMOGRAPHY Routine 04/23/2022 from Last 3 Months or Most Recently Relevant to Health Maintenance Results * (ABNORMAL) Lipid panel (07/16/2022 12:17 PM EDT) Pathologist [facility] Cholesterol, Total 242(H) 100 - 199 mg/dL [facility] Triglycerides 178(H) 0 - 149 mg/dL [facility] HDL Cholesterol 45 >39 mg/dL [facility] VLDL Cholesterol Stuart 33 5 - 40 mg/dL [facility] LDL Calculated 164(H) 0 - 99 mg/dL [facility] Blood 07/16/2022 12:1 7 PM EDT 07/16/2022 Narrative [facility] - 07/17/2022 4:06 AM EDT Performed at: 01 - [facility] [address] [id number] Engine Manager: Tommy Benjamin PhD, Phone: [phone] Marisol Uribe MD LAB BLOOD ORDERABLES Final Res ult Performing Organization Address City/State/[facility] Co de Phone Number [facility] * HM MAMMOGRAPHY (04/23/2022) Anatomical Region Laterality Modality Other Marisol Uribe MD HEALTH MAINTENANCE Final Resul t from Last 3 Months or Most Recently Relevant to Health Maintenance Insurance [facility] Care Teams Physical Director Relationship Specialty Start Date End Date Marisol Uribe MD [address] [facility] [place] [address] PCP - General Family Medicine 03/14/22
--- OUTSIDE RECORDS SUMMARY | 2024-12-27 08:03 | XMS_ITS | Clinical Summary ---
Author Organization [facility] Address [address] [place] [address] Care Team Providers Care Junior Data Analyst Name Role Phone Nikia Berry APRN Primary Care Provider +1 [phone] Allergies Active Allergy Reactions Criticality Noted Date Comments Sulfamethoxazole-Trimethoprim 2015 Penicillins 02/02/2016 Medications ibuprofen (ADVIL,MOTRIN) 800 MG tabletIndicati ons:Abnormal uterine bleeding (AUB),Menorrha patricia with irregular cycle Take 1 tablet by mouth Every 8 (Eight) Hours As Needed for Moderate Pain. 30 tablet 11/26/19 25 Active Ferrous Sulfate ER 45 MG tablet controlled-rel easeIndication s:Menorrhagia with regular cycle Take by mouth. Activ e escitalopram (Lexapro) 10 MG tabletIndicati ons:Anxiety,Me norrhagia with regular cycle Take 1 tablet by mouth Daily. 30 tablet 2 11/30/19 25 026 Active Tranexamic Acid (Lysteda) 650 MG tabletIndicati ons:Menorrhagi a with regular cycle Take 2 tablets by mouth 3 times daily for up to 5 days only while actively bleeding 30 tablet 12 12/21/19 25 Active norethindrone (Aygestin) 5 MG tabletIndicati ons:Fibroids, submucosal,Int ramural leiomyoma of uterus,Bulky or enlarged uterus Take 1 tablet by mouth Daily. 30 tablet 5 12/21/19 25 Active leuprolide (Lupron Depot, 3-Month,) 11.25 MG injectionIndic ations:Fibroid s, submucosal,Int ramural leiomyoma of uterus,Bulky or enlarged uterus Inject 11.25 mg into the appropriate muscle as directed by prescriber Every 3 (Three) Months. 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 30 tablet 4 12/24/19 25 026 Active multivitamin with minerals (MULTIVITAMIN ADULT PO) Take 1 tablet by mouth Daily. 025 Discontinued(* Therapy completed) ferrous sulfate 325 (65 Fe) MG tablet Take by mouth. 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 30 tablet 4 09/09/19 25 025 Discontinued medroxyPROGEST ERone (Provera) 10 MG tabletIndicati ons:Abnormal uterine bleeding (AUB),Menorrha patricia with irregular cycle Take 1 tablet po TID and wean to BID as tolerated 90 tablet 1 11/26/19 25 025 Discontinued(* Therapy completed) Tranexamic Acid (Lysteda) 650 MG tabletIndicati ons:Menorrhagi a with regular cycle Take 2 tablets by mouth 3 times daily for up to 5 days only while actively bleeding 30 tablet 12 11/30/19 025 Discontinued(R eorder) leuprolide (Lupron Depot, 3-Month,) 11.25 MG injectionIndic ations:Fibroid s, submucosal,Int ramural leiomyoma of uterus,Bulky or enlarged uterus Inject 11.25 mg into the appropriate muscle as directed by prescriber Every 3 (Three) Months. Bring to Physician's office for the injection 1 kit 12/21/19 025 Discontinued(R eorder) Active Problems Problem Noted Date Diagnosed Date Menorrhagia with regular cycle 12/26/2022 Hypothyroidism affecting 10/11/2017 Overview (12/04/2017): TSH Gestational Age (wks) 16w6d 2.13 Annual BUS INFO CONSULTANT exam w/o problem 02/08/2016 Overview (01/09/2017): SCREENING [...] Problem Noted Date Diagnosed Date Resolved Date Anxiety during , antepartum 12/04/2017 12/20/2024 Supervision of high-risk 10/11/2017 12/20/2024 Overview (10/11/2017): gender: classes discussed: Circumcision (y / n / na): Mattress Inspector: Baby's name: Breast/bottle feeding: Placental location: Postdates discussed: Tdap discussed: Tdap vaccine received: Flu vaccine discussed: Flu vaccine received: AMA - multigravida (1 in 28) 10/11/2017 12/20/2024 Uterine fibroids in 10/11/2017 05/06/2024 Request for sterilization 01/09/2017 Condyloma acuminata 12/20/2016 12/05/19 18 Enlarged uterus 12/20/2016 10/11/2017 Nipple discharge 12/20/2016 12/04/2017 Vulvar pruritus 12/20/2016 12/04/2017 Encounters Date Type Department Care Team Description 12/24/2024 Telephone [facility] OBGYN [address] [place] [address] Ginny Herndon MD 12/23/2024 Telephone [facility] ENDOCRINOLOGY [address] [place] [address] Marlee Krishnan DO 12/21/2024 Telephone [facility] OBGYN [address] [place] [address] Ginny Herndon MD 12/20/2024 10:10 AM EDT Office Visit [facility] [place] [address] Ginny Herndon MD Encounter for biopsy (Primary Dx); ASCUS with positive high risk HPV cervical; Abnormal uterine bleeding (AUB); Menorrhagia with regular cycle; Fibroids, submucosal; Intramural leiomyoma of uterus; Bulky or enlarged uterus 12/20/2024 9:30 AM EDT Ancillary Procedure [facility] [place] [address] Fibroids; Menorrhagia with regular cycle 12/20/2024 Telephone [facility] [place] [address] Ginny Herndon MD 12/20/2024 Telephone [facility] OBGYN [address] [facility] [address] [place] [address] Ginny Herndon MD 12/20/2024 Telephone [facility] OBGYN [address] [facility] [address] [place] [address] Ginny Herndon MD 12/20/2024 Travel 12/07/2024 Results Follow-Up [facility] [place] [place] [address] Ginny Herndon MD 12/02/2024 1:05 PM EDT Lab [facility] [place] [address] 12/02/2024 Travel 11/29/2024 10:00 AM EDT Office Visit [facility] [place] [address] Ginny Herndon MD Menorrhagia with regular cycle (Primary Dx); Fibroids; Anxiety; Breast tenderness 11/29/2024 Travel 11/25/2024 Telephone [facility] OBGYN [address] [place] [address] Ginny Herndon MD 11/25/2024 Telephone [facility] OBGYN [address] [facility] [address] [place] [address] Ginny Herndon MD Appointment 10/26/2024 Telephone [facility] OBGYN [address] [facility] [address] [place] [address] MD [address] WELLS - MEDICAL CONCERN 10/14/2024 Telephone [facility] OBGYN [address] [facility] [address] [place] [address] MD [address]WELLS - CALLBACK 09/27/2024 [facility] OBGYN [address] [facility] [address] [place] [address] MD [address]. WELLS - CANCEL SAME DAY from Last 3 Months Family History Medical [...] Pressure 112/76 12/20/2024 10:04 AM EDT Pulse 95 08/19/2024 10:28 AM EDT Temperature 36.9 C (98.5 F) 02/02/2016 11:57 AM EDT Respiratory Rate 14 01/09/2017 4:19 PM EDT Oxygen Saturation 98% 08/19/2024 10: 28 AM EDT Inhaled Oxygen Concentration - - Weight 90.6 kg (199 lb 12.8 oz) 025 10:04 AM EDT Height 157.5 cm (5' 2.01 ) 12/20/2024 1 0:04 AM EDT Body Mass Index 36.53 12/20/2024 10:04 AM EDT Plan of Treatment Upcoming Encounters Date Type Department Care Team (Late st Contact Info) Description 01/24/2025 9:30 AM EDT Office Visit [facility] OBGYN [address] [place] [address] Ginny Herndon MD 1700 [facility] [address] [place] [address] 02/28/2025 9:30 AM EST Office Visit [facility] OBGYN [address] [place] [address] Ginny Herndon MD [address] [address] 03/09/2025 9:15 AM EST Office Visit [facility] ENDOCRINOLOGY [address] [place] [address] Marlee Krishnan, [address] [place] [address] Health Maintenance Due Date Last Done Comments TDAP/TD VACCINES (1 - Tdap) 1993 ANNUAL PHYSICAL 02/05/2016 COLOGUARD 2019 COLON CANCER SCREENING 5 YEA R SIGMOIDOSCOPY 2019 COLONOSCOPY 2019 COL[address]ECTAL CANCER SCREENING 2019 CT COLONOGRAPHY 2019 FECAL OCCULT BLOOD TEST 2019 FIT Testing (1 year) 2019 LIPID PANEL 07/17/2023 07/16/2022 Pneumococcal Vaccine 50+ (1 of 1 - PCV) 02/13/2024 ZOSTER VACCINE (1 of 2) 02/13/2024 INFLUENZA VACCINE 11/05/2024 Annual Gynecologic Pelvic an d Breast Exam 05/07/2025 05/06/2024 MAMMOGRAM 06/03/2026 06/03/2024, 05/09, 04/23/2022 PAP SMEAR 05/06/2027 05/06/2024, 12/20/2016 HEPATITIS C SCREENING Completed 12/04/2017, 018 Procedures Procedure Name Priority Date/Time Associated Diagnosis Comments POCT PEFORM URINE Routine 12/20/2024 9:59 AM EDT Encounter for biopsy US NON-OB TRANSVAGINAL Routine 12/20/2024 9:31 AM EDT Fibroids Menorrhagia with regular cycle CBC AND DIFFERENTIAL Routine 12/02/2024 1:24 PM EDT Menorrhagia with regular cycle COMPREHENSIVE METABOLIC PANEL Routine 12/02/2024 1:24 PM EDT Menorrhagia with regular cycle IRON PROFILE Routine 12/02/2024 1:24 PM EDT Menorrhagia with regular cycle FERRITIN Routine 12/02/2024 1:24 PM EDT Menorrhagia with regular cycle MAMMO SCREENING DIGITAL TOMOSYNTHESIS BILATERAL W CAD [...] Recently Relevant to Health Maintenance Results * POC , Urine (12/20/2024 9:59 AM EDT) HCG, Urine, QL Negative Negative [facility] Lot Number [id number] [facility] Internal Positive Control Positive Positive, Passed [facility] Internal Negative Control Negative Negative, Passed [facility] Expiration Date ,126,413 [facility] Urine 12/20/2024 9:59 AM EDT us Ginny Herndon MD POINT OF CARE TEST ORDERABLES Fi nal Result [facility]
[address] [place] [address], * US Non-ob Transvaginal (12/20/2024 9:31 AM EDT) Anatomical Region Laterality Modality Body Ultrasound 12/20/2024 9:02 AM EDT Narrative 12/20/2024 3:00 PM EDT PAT NAME: PARVIZ SINGH [facility] REC#: [id number] DA: [id number] PAT GEND: F PAT TYPE: O EXAM ERMELINDA: [id number] REF GINNY CHACON Indication ======== Fibroids Comparison Studies The findings [...] and morphology Recommendation Follow-up as clinically indicated. Retail Department Supervisor: Anh Hernandez RT(R), [facility] Physician: Ginny Herndon MD, FACOG Electronically signed by: Ginny Herndon MD, FACOG at: 15:00 Procedure Note Ginny Herndon MD - 12/20/2024 PAT NAME: PARVIZ SINGH [facility] REC#: [id number] DA: [id number] PAT GEND: F PAT TYPE: O EXAM ERMELINDA: [id number] REF PHYS GINNY HERNDON Indication ======== Fibroids [...] present Endometrium:Uniform Cervix details:Nabothian cyst noted Uterus pnes517 mm Uterus ap92 mm Uterus tr104 mm Uterus Dvc695.7 cm Endometrial thickness, total8.5 mm Uterine fibroid D163.3 mm Uterine fibroid D255.2 mm Uterine fibroid D369.3 mm Uterine fibroid qcy480.721 cm Uterine fibroids findings:Posterior Uterine fibroid D136.3 [...] and morphology Recommendation Follow-up as clinically indicated. Retail Department Supervisor: Anh Hernandez RT(R), RDNY Physician: Ginny Herndon MD, FACOG Electronically signed by: Ginny Herndon MD, FACOG at: 15:00 Ginny Herndon MD [facility] [place] ORDERABLES Final Result * (ABNORMAL) Iron Profile (12/02/2024 1:24 PM EDT) TIBC 347 250 - 450 ug/dL [facility] UIBC 322 131 - 425 ug/dL [facility] Iron 25(L) 27 - 159 ug/dL [facility] Iron Saturation 7(L) 15 - 55 % [facility] Blood 12/02/2024 1:24 PM EDT 12/02/2024 Narrative [facility] (AMBULATORY) - 12/03/2024 8:12 AM EDT Performed at: - Lab[address] [id number] Forest Fire Officer: Tommy Benjamin PhD, Phone: [phone] Patient Fasting: N Ginny Herndon MD LAB BLOOD ORDERABLES Final Resul t [facility] (AMBULATORY) [address] [place] [address], [facility] [address] [place] [address], * CBC & Differential (12/02/2024 1:24 PM EDT) WBC 6.6 3.4 - 10.8 x10E3/uL [facility] [...] LAB Blood 12/02/2024 1:24 PM EDT 12/02/2024 [facility] (AMBULATORY) - 12/03/2024 7:10 AM EDT Performed at: - [address] [id number] Forest Fire Officer: Tommy Benjamin PhD, Phone: [phone] Patient Fasting: N us Ginny Herndon MD LAB BLOOD ORDERABLES Final Resul t [facility] (AMBULATORY) [address] [place] [address], [facility] [address] [place] [address], * Ferritin (12/02/2024 1:24 PM EDT) Ferritin 30 15 - 150 ng/mL [facility] Blood 12/02/2024 1:24 PM EDT 12/02/2024 Narrative [facility] (AMBULATORY) - 12/03/2024 8:12 AM EDT Performed at: 01 - [facility] [address] [place], [place] [id number] Forest Fire Officer: Tommy Benjamin PhD, Phone: [phone] Patient Fasting: N us Ginny Herndon MD LAB BLOOD ORDERABLES Final Resul t [facility] [address] [place] [address], [facility] [address] [place] [address], * Comprehensive Metabolic Panel (12/02/2024 1:24 PM EDT) [facility] Glucose 89 70 - 99 mg/dL [facility] [...] Narrative [facility] (AM[facility]ULATORY) - 12/03/2024 8:12 AM EDT Performed at: 01 - [facility] [address] [place], [place] [id number] Forest Fire Officer: Tommy Benjamin PhD, Phone: [phone] Patient Fasting: N us Ginny Herndon MD LAB BLOOD ORDERABLES Final Resul t [facility] (AMBULATORY) [address] [place] [address], [place] [phone] [facility] [address] [place] [address], [place] [phone] * Mammo Screening Digital Tomosynthesis Bilateral With [...] architectural distortion are present. Radha Pitts APRN IMG MAMMOGRAPHY ORDERABLE S Final Result * LIQUID-BASED PAP SMEAR WITH HPV GENOTYPING REGARDLESS OF INTERPRETATION (ZAKIYA,COR,MAD) (05/06/2024 10:07 AM EST) Reference Lab Report [facility] [address] [place] [address] or [phone] Andrea Chiu M.D., Inventory Control Coordinator PATIENT NAME [facility]ORATORY NO. PARVIZ [facility] [id number] AGE SEX SSN CLIENT REF # [facility]) 49 1975 F [id number] Vincent [place]ON REQUESTING Adrian. [place] [address] PITTS RADHA DATE COLLECTED DATE RECEIVED DATE REPORTED 05/06/2024 05/06/2024 05/11/2024 ThinPrep Pap with Cytyc Imaging DIAGNOSIS: Epithelial cell abnormality. (ASC) Atypical squamous cells of undetermined significance. Professional interpretation rendered by Andrea Chiu M.D., F.C.A.P. at [facility], [facility], [address] [place] [address]. SPECIMEN ADEQUACY: SATISFACTORY FOR EVALUATION Transformation zone [...] of chlamydial and gonococcal disease using the [place] system. Trichomonas TRICHOMONAS VAGINALIS: Negative The Aptima Trichomonas vaginalis assay is an in vitro qualitative nucleic acid amplification test for the detection of ribosomal RNA to aid in the diagnosis of trichomoniasis. COMMERCIAL PHOTOGRAPHER: CAMILLA SIM(ASCP) REVIEWED, DIAGNOSED AND ELECTRONICALLY SIGNED BY: Andrea Chiu M.D., F.C.A.P. CPT CODES: 23111, 64629, 25890, 08869, 91590, 84618, 89674 05/11/2024 2:33 PM EST [facility] ThinPrep Vial Collection / Unknown 05/06/2024 10:07 AM EST 05/06/2024 10:07 AM EST Radha Pitts ACOUSTICS TEACHER PATHOLOGY/CYTOLOGY ORDERA BLES Final Result [facility]
[address] [place] [address], [place] [phone] * Hepatitis C Antibody (12/04/2017 4:28 PM EDT) Hepatitis C Ab Non-Reacti ve Non-Reacti ve 12/04/2017 6:03 PM EDT [facility] Blood Venipuncture / Unknown 12/04/2017 4:28 PM EDT 12/04/2017 4:28 PM EDT Dima Anderson MD LAB BLOOD ORDERABLES Final Result [facility]
[address] [place] [address], [place] [phone] from Last 3 Months or Most Recently Relevant to Health Maintenance Insurance [employer] Care Teams Junior Data Analyst Relationship Specialty Start Date End Date Nikia Berry APRN [address] [place] [address] PCP - General Nurse Practitioner 06/01/24
--- OUTSIDE RECORDS SUMMARY | 2024-12-27 08:03 | XMS_ITS | Encounter Summary ---
Author Organization [facility] Address [address] [place] [id number] Care Team Providers Care Cottonseed Meat Presser Name Role Phone Nikia Berry APRN Primary Care Provider +1 -[phone] Encounter Details Date Type Department Care Team (Latest Contact Info) Description 12/20/2024 Travel Social History Tobacco Use Types Packs/Day Years [...] Description 01/24/2025 9:30 AM EDT Office Visit [facility] OBGYN [address] [place] [address] Ginny Allen MD [address] [place] [address] 02/28/2025 9:30 AM EST Office Visit [facility] OBGYN [address] [place] [address] Ginny Allen MD [address] [address] 03/09/2025 9:15 AM EST Office Visit [facility] ENDOCRINOLOGY [address] [facility] [address] [place] [address] Marlee Krishnan, [address] [facility] [address] [place], [place] [address] documented as of this encounter Visit Diagnoses Not on filedocumented in this encounter Care Teams Cottonseed Meat Presser Relationship Specialty Start Date End Date Nikia Berry APRN [address] [place] [address] PCP - General Nurse Practitioner 06/01/24 documented as of this encounter
--- OUTSIDE RECORDS SUMMARY | 2024-12-27 08:03 | XMS_ITS | Encounter Summary ---
Author Organization [facility] Address [address] [place] [id number] Care Team Providers Care Director Of Assessing Name Role Phone Nikia Berry APRN Primary Care Provider +1 -[phone] Reason for Visit * Reason Onset Date Comments DR.WELLS Madalyn ROSADO 10/14/2024 Encounter Details Date Type Department Care Team (Late st Contact Info) Description 10/14/2024 Telephone [facility] OBGYN [address] [address] Ginny Allen MD [address]00 [facility] [address] [place] [address] DR.WELLS Madalyn ROSADO Social History Tobacco Use [...] Rep - 10/14/2024 11:22 AM EDT Caller: Francisco Brynn Jean Relationship: Self Best call back number: [phone] Who are you requesting to speak with (clinical staff, provider, specific staff member): CLINICAL What was the call regarding: PT HAS QUESTIONS PRIOR TO HER APPT ON 11/01 documented in this encounter Plan of Treatment Upcoming Encounters Date Type Department Care Team (Late st Contact Info) Description 01/24/2025 9:30 AM EDT Office Visit [facility] OBGYN [address] [place] [address] Ginny Allen MD [address] [address] 02/28/2025 9:30 AM EST Office Visit [facility] OBGYN [address] [place] [address] Ginny Allen MD [address] [id number] 03/09/2025 9:15 AM EST Office Visit [facility] ENDOCRINOLOGY [address] [place] [address] Marlee Krishnan, [address] [place] [address] documented as of this encounter Visit Diagnoses Not on filedocumented in this encounter Care Teams Director Of Assessing Relationship Specialty Start Date End Date Nikia Berry APRN [address] [place] [address] PCP - General Nurse Practitioner 06/01/24 documented as of this encounter
--- OUTSIDE RECORDS SUMMARY | 2024-12-27 08:04 | XMS_ITS | Encounter Summary ---
Author Organization [facility] Address [address] [place] [id number] Care Team Providers Care Watch Hairspring Assembler Name Role Phone Nikia Berry APRN Primary Care Provider +1 -[phone] Encounter Details Date Type Department Care Team (Latest Contact Info) Description 12/02/2024 Travel Social History Tobacco Use Types Packs/Day [...] 01/24/2025 9:30 AM EDT Office Visit [facility] OBGYN [address] [place] [address] Ginny Allen MD [address] [place] [id number] 02/28/2025 9:30 AM EST Office Visit [facility] OBGYN [address] [place] [address] Ginny Allen MD [address] [address] 03/09/2025 9:15 AM EST Office Visit [facility] ENDOCRINOLOGY [address] [facility] [address] [place] [address] Marlee Krishnan, [address] [facility] [address] [place], [place] [address] documented as of this encounter Visit Diagnoses Not on filedocumented in this encounter Care Teams Watch Hairspring Assembler Relationship Specialty Start Date End Date Nikia Berry APRN [address] [place] [address] PCP - General Nurse Practitioner 06/01/24 documented as of this encounter
--- OUTSIDE RECORDS SUMMARY | 2024-12-27 08:04 | XMS_ITS | Encounter Summary ---
Author Organization [facility] Address [address] [place] [id number] Care Team Providers Care Embedded Processor Name Role Phone Nikia Berry APRN Primary Care Provider +1 -[phone] Encounter Details Date Type Department Care Team (Latest Contact Info) Description 11/29/2024 Travel Social History Tobacco Use Types Packs/Day [...] Description 01/24/2025 9:30 AM EDT Office Visit [facility] OBGYN [address] [place] [address] Ginny Allen MD [address] [place] [id number] 02/28/2025 9:30 AM EST Office Visit [facility] OBGYN [address] [place] [address] Ginny Allen MD [address] [address] 03/09/2025 9:15 AM EST Office Visit [facility] ENDOCRINOLOGY [address] [facility] [address] [place] [address] Marlee Krishnan, [address] [facility] [address] [place], [place] [address] documented as of this encounter Visit Diagnoses Not on filedocumented in this encounter Care Teams Embedded Processor Relationship Specialty Start Date End Date Nikia Berry APRN [address] [place] [address] PCP - General Nurse Practitioner 06/01/24 documented as of this encounter
--- OUTSIDE RECORDS SUMMARY | 2024-12-27 08:04 | XMS_ITS | Encounter Summary ---
Author Organization [facility] Address [address] [place] [address] Care Team Providers Care Registrar Assistant Name Role Phone Nikia Berry APRN Primary Care Provider +1 -[phone] Encounter Details Date Type Department Care Team (Late Contact Info) Description 12/07/2024 Results Follow-Up [facility] OBGYN [address] [place] [address] Ginny Allen MD [address] [facility] [address] [place], [place] [address] Social History Tobacco Use Types Packs/Day Years [...] on file documented as of this encounter Progress Notes * Ginny Allen MD - 12/07/2024 8:42 AM EDT Please call patient about results. Not anemic, but she does have some iron deficiency. Start OTC iron sulfate. documented in this encounter Plan of Treatment Upcoming Encounters Date Type Department Care Team (Late st Contact Info) Description 01/24/2025 9:30 AM EDT Office Visit [facility] OBGYN [address] [place] [address] Ginny Allen MD [address] [facility] [address] [place] [address] 02/28/2025 9:30 AM EST Office Visit [facility] OBGYN [address] [place] [address] Ginny Allen MD [address] [facility] [address] [place] [address] 03/09/2025 9:15 AM EST Office Visit [facility] ENDOCRINOLOGY [address] [place] [address] Marlee Krishnan, DO [address] [place] [address] documented as of this encounter Visit Diagnoses Not on filedocumented in this encounter Care Teams Registrar Assistant Relationship Specialty Start Date End Date Nikia Berry APRN [address] [place], [place] [address] [place] [address] PCP - General Nurse Practitioner 06/01/24 documented as of this encounter
--- OUTSIDE RECORDS SUMMARY | 2024-12-27 08:05 | XMS_ITS | Encounter Summary ---
[facility] Address [address] [place] [id number] Care Team Providers Care Mammography Tech Name Role Phone Nikia Berry APRN Primary Care Provider +1 -[phone] Encounter Details Date Type Department Care Team (Late st Contact Info) Description 12/23/2024 Telephone [facility] ENDOCRINOLOGY [address] [place] [address] Marlee Krishnan DO [address] [facility] [address] [place] [address] Social History Tobacco Use Types [...] Telephone Encounter - Joanne Diaz MA - 12/23/2024 1:22 PM EDT Patient notified. She states she did have TSH done on 11/17/2024 which was 5.44 at [facility]. Records have been requested * Telephone Encounter - Marlee Krishnan DO - 12/23/2024 11:45 AM EDT Ok to change to Synthroid as a trial due to leg cramping but would do the same dose - 50 mcg. Has she had levels checked recently? Script sent. * Telephone Encounter - Chrissie Vu RegSched Rep - 12/23/2024 11:09 AM EDT Pt called states she is having muscle cramp in her legs constantly pt seem to think Unithroid 50 mcg is causing the cramps. Pt saw PCP today. Pt wanting to know if she can get a prescription for Synthroid 25 mcg pt requesting. Please send to [facility] documented in this encounter Plan of Treatment Upcoming Encounters Date Type Department Care Team (Late st Contact Info) Description 01/24/2025 9:30 AM EDT Office Visit [facility] OBGYN [address] [place] [address] Ginny Allen MD [address] [place] [id number] 02/28/2025 9:30 AM EST Office Visit [facility] OBGYN [address] [place] [address] Ginny Allen MD [address] [address] 03/09/2025 9:15 AM EST Office Visit [facility] ENDOCRINOLOGY [address] [place] [address] Marlee Krishnan DO [address] [place] [address] documented as of this encounter Visit Diagnoses Not on filedocumented in this encounter Care Teams Mammography Tech Relationship Specialty Start Date End Date Nikia Berry APRN [address] [place] [address] [place] [address] PCP - General Nurse Practitioner 06/01/24 documented as of this encounter
--- OUTSIDE RECORDS SUMMARY | 2024-12-27 08:05 | XMS_ITS | Encounter Summary ---
Author Organization [facility] Address [address] [place] [id number] Care Team Providers Care Buffer Copper Name Role Phone Nikia Berry APRN Primary Care Provider +1 [phone] Encounter Details Date Type Department Care Team (Late st Contact Info) Description 11/25/2024 Telephone [facility] OBGYN 1700 [facility] [address] [place] [address] Ginny Allen MD 1700 [facility] [address] [place] [phone] Social History Tobacco Use Types Packs/Day Years [...] encounter Miscellaneous Notes * Telephone Encounter - Ginny Allen MD - 11/25/2024 5:26 PM EDT I spoke with patient by phone returning her phone call about severe bleeding. The patient reports that she is currently cycle day 3 for her regular menstrual period. At her last visit in August she was started on progestin only pill, however, she is not currently taking these. She did not follow-up for endometrial biopsy. She reports that her cycles have continued to be irregular and very heavy. Shestates she went to the ER outside hospital with her last menstrual cycle. Currently she is cycle day 3 and reports heavy bleeding with clots. Yesterday she was changing a super tampon approximately every 1 hour, but her flow is slower today. She denies signs of anemia, specifically fatigue, shortness of breath, dizziness or lightheadedness. She is taking iron sulfate once daily and I have encouraged her to increase this to twice daily while bleeding. We will begin Provera 10 mg 3 times daily till amenorrhea and we will try to wean down to twice daily as tolerated. She has a follow-up appointment set up in the office in 4 days. Precautions were reviewed with her and she understands when to go to the ER if needed. documented in this encounter Plan of Treatment Upcoming Encounters Date Type Department Care Team (Late st Contact Info) Description 01/24/2025 9:30 AM EDT Office Visit [facility] [place] [address] Ginny Allen MD [address] [address] 02/28/2025 9:30 AM EST Office Visit [facility] [place] [address] Ginny Allen MD [address] [address] 03/09/2025 9:15 AM EST Office Visit [facility] ENDOCRINOLOGY [address] [place] [phone] Marlee Krishnan, [address] [place] [phone] documented as of this encounter Visit Diagnoses Not on filedocumented in this encounter Care Teams Buffer Copper Relationship Specialty Start Date End Date Nikia Berry APRN [address] [place] [address] PCP - General Nurse Practitioner 06/01/24 documented as of this encounter
--- OUTSIDE RECORDS SUMMARY | 2024-12-27 08:05 | XMS_ITS | Encounter Summary ---
Author Organization [facility] Address [address] [place] [id number] Care Team Providers Care Drug Purchaser Name Role Phone Nikia Berry APRN Primary Care Provider +1 -[phone] Encounter Details Date Type Department Care Team (Late st Contact Info) Description 12/24/2024 Telephone [facility] OBGYN 1700 [facility] 701 [place] [address] Ginny Allen MD 1700 [facility] 701 [place] [id number] Social History Tobacco Use Types Packs/Day Years [...] encounter Miscellaneous Notes * Telephone Encounter - Suad Galarza RN - 12/24/2024 11:23 AM EDT Patient states that Dr. Allen recommended she begin Lupron for fibroids and menorrhagia. Patient states that her period was 3 days late in November and 1 week late in December. Patient states that sheis uncertain about beginning Lupron and would prefer a more natural approach. Patient states that she will further discuss her concerns at her pre-op appointment in January. * Telephone Encounter - Lois Skinner RegSched Rep - 12/24/2024 11:03 AM EDT Patient returned my call to schedule surgery, but had a couple questions for a nurse. When she was in the office Dr. Allen said her PAP came back negative, but Alejandro mentioned doing hersurgery they said her PAP came back positive ASCUS HPV. She is just a little confused on that Patient was three days late for her period last month and it skipped this month. Patient is wondering if she's possibly starting menopause does she need to start the Lupron or just wait it out. Patient would like a call back [phone] documented in this encounter Plan of Treatment Upcoming Encounters Date Type Department Care Team (Late st Contact Info) Description 01/24/2025 9:30 AM EDT Office Visit [facility] OBGYN [address] [place] [address] Ginny Allen MD [address] [place] [id number] 02/28/2025 9:30 AM EST Office Visit [facility] OBGYN [address] [place] [address] Ginny Allen MD [address] [address] 03/09/2025 9:15 AM EST Office Visit [facility] ENDOCRINOLOGY [address] [place] [phone] Marlee Krishnan, DO [address] [place] [address] documented as of this encounter Visit Diagnoses Not on filedocumented in this encounter Care Teams Drug Purchaser Relationship Specialty Start Date End Date Nikia Berry APRN [address] [place] [address] [place] [address] PCP - General Nurse Practitioner 06/01/24 documented as of this encounter
--- OUTSIDE RECORDS SUMMARY | 2024-12-27 08:05 | XMS_ITS | Encounter Summary ---
[facility] Address [address] [place] [id number] Care Team Providers Care Electroplater Automatic Name Role Phone Nikia Berry APRN Primary Care Provider +1 -[phone] Encounter Details Date Type Department Care Team (Late Contact Info) Description 12/21/2024 Telephone [facility] OBGYN [address] [facility] 701 [place] [address] Ginny Allen MD [address] [facility] [address] [place] [address] Social History Tobacco Use Types Packs/Day Years [...] encounter Miscellaneous Notes * Telephone Encounter - Lois Skinner RegSched Rep - 12/21/2024 4:44 PM EDT Left voicemail for patient to schedule surgery documented in this encounter Plan of Treatment Upcoming Encounters Date Type Department Care Team (Late Contact Info) Description 01/24/2025 9:30 AM EDT Office Visit [facility] OBGYN [address] [place] [address] Ginny Allen MD [address] [facility] 701 [place] [address] 02/28/2025 9:30 AM EST Office Visit [facility] OBGYN [address] [place] [address] Ginny Allen MD [address] [facility] 701 [place] [address] 03/09/2025 9:15 AM EST Office Visit [facility] ENDOCRINOLOGY [address] [place] [address] Marlee Krishnan, [address] [place] [address] documented as of this encounter Visit Diagnoses Not on filedocumented in this encounter Care Teams Electroplater Automatic Relationship Specialty Start Date End Date Nikia Berry APRN [address] [place], [place] [address] [place] [address] PCP - General Nurse Practitioner 06/01/24 documented as of this encounter
--- OUTSIDE RECORDS SUMMARY | 2024-12-27 08:06 | XMS_ITS | Encounter Summary ---
Author Organization [facility] Address [address] [place] [id number] Care Team Providers Care Licensed Optical Dispenser Name Role Phone Nikia Berry APRN Primary Care Provider +1 -[phone] Encounter Details Date Type Department Care Team (Late Contact Info) Description 12/20/2024 Telephone [facility] OBGYN 1700 [facility] 701 [place] [address] Ginny Allen MD 1700 [facility] 701 [place] [address] Social History Tobacco Use Types Packs/Day Years [...] Encounter - Lois Skinner RegSched Rep - 12/20/2024 2:30 PM EDT UNABLE TO REACH PATIENT. LEFT VOICEMAIL WITH MY DIRECT LINE documented in this encounter Plan of Treatment Upcoming Encounters Date Type Department Care Team (Late st Contact Info) Description 01/24/2025 9:30 AM EDT Office Visit [facility] OBGYN [address] [place] [address] Ginny Allen MD 1700 [facility] 701 [place] [address] 02/28/2025 9:30 AM EST Office Visit [facility] OBGYN [address] [place] [address] Ginny Allen MD 1700 [facility] 701 [place] [address] 03/09/2025 9:15 AM EST Office Visit [facility] ENDOCRINOLOGY [address] [place] [address] Marlee Krishnan, [address] [place], [place] [phone] documented as of this encounter Visit Diagnoses Not on filedocumented in this encounter Care Teams Licensed Optical Dispenser Relationship Specialty Start Date End Date Nikia Berry APRN [address] [place] [address] PCP - General Nurse Practitioner 06/01/24 documented as of this encounter
--- OUTSIDE RECORDS SUMMARY | 2024-12-27 08:06 | XMS_ITS | Encounter Summary ---
Author Organization [facility] Address [address] [place] [phone] Care Team Providers Care Enrollment Management Manager Name Role Phone Nikia Berry APRN Primary Care Provider +1 -[phone] Reason for Visit * Reason Onset Date Comments Appointment 11/25/2024 Encounter Details Date Type Department Care Team (Late st Contact Info) Description 11/25/2024 Telephone [facility] OBGYN [address] [phone] Ginny Allen MD 1700 [place] [address] Appointment Social History Tobacco Use Types Packs/Day Years [...] Allen MD - 11/25/2024 5:26 PM EDT PT contacted. * Telephone Encounter - Minerva Awad MA - 11/25/2024 11:54 AM EDT Called patient. Patient stated her bleeding started yesterday at 11am with strong pelvic pain. Patient states she is going through a super tampon less than an hour and is having terrible pain until she uses the bathroom. Patient stated her blood flow has been so heavy that it has been forcing her tampons out if her vagina. Patient has a history of fibroids, She states clots have been present and some at random times. The size of the clots range from the size of a dime and the size of a quarter.Advised patient to go to the ER if bleeding does not decrease or if she starts feeling lightheaded/weak due to blood loss. Informed patient I would send a message to Dr. Allen to advise and will callpatient back with ran answer. Patient verbalized understanding, * Telephone Encounter - Joanne Yang RegSched Rep - 11/25/2024 11:27 AM EDT BRYNN EMERSON [phone] PT SAYS SHE IS BLEEDING THROUGH A SUPER HEAVY TAMPON PT IS CONCERNED ABOUT LOSING TOO MUCH BLOOD ADVISED SHE SHOULD GO TO THE ER, PT DECLINED STATES SHE'S BEEN TWICE FOR THE SAME ISSUE. PT IS SCHEDULED FOR Friday11/29/24 PT WANTING TO BE SEEN TODAY documented in this encounter Plan of Treatment Upcoming Encounters Date Type Department Care Team (Late st Contact Info) Description 01/24/2025 9:30 AM EDT Office Visit [facility] OBGYN [address] [place] [address] Ginny [facility] MD [facility] [id number] 02/28/2025 9:30 AM EST Office Visit [facility] OBGYN [address] [place] [address] [facility] [address] 03/09/2025 9:15 AM EST Office Visit [facility] ENDOCRINOLOGY [address] [facility] [address] [place] [address] Marlee Krishnan, DO [address] [facility] [address] [place], [place] [phone] documented as of this encounter Visit Diagnoses Not on filedocumented in this encounter Care Teams Enrollment Management Manager Relationship Specialty Start Date End Date Nikia Berry APRN [address] [place] [address] PCP - General Nurse Practitioner 06/01/24 documented as of this encounter
--- OUTSIDE RECORDS SUMMARY | 2024-12-27 08:06 | XMS_ITS | Encounter Summary ---
Author Organization [facility] Address [address] [place] [address] Care Team Providers Care Cash On Delivery Clerk Name Role Phone Nikia Berry APRN Primary Care Provider +1 -[phone] Encounter Details Date Type Department Care Team (Late st Contact Info) Description 12/20/2024 Telephone [facility] OBGYN [address] [place] [address] Ginny Allen MD 1700 [facility] 701 [place] [phone] Social History Tobacco Use Types Packs/Day Years [...] encounter Miscellaneous Notes * Telephone Encounter - Liana Klein RN - 12/20/2024 5:39 PM EDT Per message from Dr Allen: Can you please call her and tell her not to take the lysteda with the norethindrone (I just sent that in for her to begin with Lurpon) Called patient and advised her of this. She Vu. -LianaRn documented in this encounter Plan of Treatment Upcoming Encounters Date Type Department Care Team (Late st Contact Info) Description 01/24/2025 9:30 AM EDT Office Visit [facility] OBGYN [address] [place] [address] Ginny Allen MD 1700 [facility] 701 [place] [address] 02/28/2025 9:30 AM EST Office Visit [facility] OBGYN [address] [place] [address] Ginny Allen MD 1700 [facility] 701 [place], [place] [phone] 03/09/2025 9:15 AM EST Office Visit [facility] ENDOCRINOLOGY [address] [place] [address] Marlee Krishnan, DO [address] [place] [address] documented as of this encounter Visit Diagnoses Not on filedocumented in this encounter Care Teams Cash On Delivery Clerk Relationship Specialty Start Date End Date Nikia Berry APRN [address] [place], [place] [address]boby [place], [place] [phone] PCP - General Nurse Practitioner 06/01/24 documented as of this encounter
--- OUTSIDE RECORDS SUMMARY | 2024-12-27 08:06 | XMS_ITS | Encounter Summary ---
[facility] Address [address] [place] [id number] Care Team Providers Care Building Appraiser Name Role Phone Nikia Berry APRN Primary Care Provider +1 -[phone] Encounter Details Date Type Department Care Team (Late st Contact Info) Description 12/20/2024 Telephone [facility] OBGYN 1700 [facility] 701 [place] [address] Ginny Allen MD 1700 [facility] 701 [place] [id number] Social History Tobacco Use Types Packs/Day Years [...] Telephone Encounter - Ginny Allen MD - 12/20/2024 2:16 PM EDT Thank you! * Telephone Encounter - Ricki Mendoza RN - 12/20/2024 1:39 PM EDT ([place]: [id number]) [place] Rx #: [id number] Drug Lupron Depot (3-Month) 11.25MG kit [employer] [place] Medicaid ePA Form Outcome Approved today by [place] Medicaid [employer] 2017 The request has been approved. The authorization is effective from 12/20/2024 to 12/19/2025, as long as the member is enrolled in their current health plan. A written notification letter will follow with additional details. Effective Date: 12/20/2024 Authorization Expiration Date: 12/19/2025 [facility] pharmacy notified. They cannot order but suggested sending it to [facility]. Pt agrees to send Lupron to [facility]. Pended to Dr. Allen documented in this encounter Plan of Treatment Upcoming Encounters Date Type Department Care Team (Late st Contact Info) Description 01/24/2025 9:30 AM EDT Office Visit [facility] OBN 206 [place] [address] Ginny Allen MD 1700 [place] [address] 02/28/2025 9:30 AM EST Office Visit [facility] OBGYN [address] [place] [address] Ginny Allen MD [address] [address] 03/09/2025 9:15 AM EST Office Visit [facility] ENDOCRINOLOGY [address] [place] [address] Marlee Krishnan, [address] [place], [place] [phone] documented as of this encounter Visit Diagnoses Diagnosis Fibroids, submucosal Submucous leiomyoma of uterus Intramural leiomyoma of uterus Bulky or enlarged uterus Hypertrophy of uterus documented in this encounter Care Teams Building Appraiser Relationship Specialty Start Date End Date Nikia Berry APRN [address] [place] [address] PCP - General Nurse Practitioner 06/01/24 documented as of this encounter
--- NOTE | 2024-12-27 08:11 | PC.NURSE ---
DR WAGNER AT BEDSIDE
--- NOTE | 2024-12-27 08:17 | HMH.EDGENADL ---
Discharge Plan Disposition Patient Disposition: Home, Self-Care Condition: Good Prescriptions Prescriptions: No Action levothyroxine [Unithroid] 25 mcg tablet PO Patient Comments: TAKE 1 TABLET BY MOUTH EVERY MORNING Referrals Follow up/Referrals: Nikia Berry APRN [Primary Care Provider, Medical] - See instructions Activity Restrictions/Add. Instructions Additional Instructions/Restrictions: You were seen in the emergency department for vaginal bleeding. Please follow-up with her program review director outpatient. Please continue to hydrate well, eat well, and be sure to change this frequently. If symptoms worsen, or new symptoms develop, please return to the emergency department. Clinical Impressions Clinical Impression: Vaginal bleeding Instructions Patient Instructions: DI for Vaginal Bleeding Print Language Print Language: Martiniquais Discharge ED Provider: Rony Nieto General Adult HPI General Chief complaint: Vaginal Bleeding Stated complaint: heavy vaginal bleeding Time Seen by Provider: 12/27/24 08:02 History of Present Illness HPI narrative: This patient is a 49-year-old female with past medical history of recently diagnosed uterine fibroid who presents to the emergency department with heavy vaginal bleeding. The patient reports that several months ago she began to have heavy bleeding during her menses, she has recently received an ultrasound and a diagnosis of a large uterine fibroid. She is currently working with a program review director outpatient to establish a plan to attempt to strengthen the size of the fibroid by inducing early menopause and if that fails have a hysterectomy performed. Patient reports that she started her period as scheduled yesterday night, since last night she has had heavy vaginal bleeding and has been soaking approximately 1 tampon per hour. She does endorse some mild lightheadedness, but she is not having any difficulty ambulating, and she is hemodynamically stable while in the emergency department. Related Data Home Medications ?Medication ?Instructions ?Recorded ?Confirmed levothyroxine 25 mcg tablet mcg PO 09/07/24 09/07/24 (Unithroid) Allergies Allergy/AdvReac Type Severity Reaction Status Date / Time Penicillins (PENICILLINS) Allergy Severe UNABLE TO Verified 09/07/24 09:57 BREATH sulfamethoxazole (From AdvReac Verified 09/07/24 09:57 Bactrim) trimethoprim (From Bactrim) AdvReac Verified 09/07/24 09:57 [facility] Disclaimer: The information contained in this section may have been updated after the patient was seen, as this information can be updated by other users. Medical History (Updated 12/27/24 @ 09:56 by Rony Nieto MD) Thyroid disorder High cholesterol Surgical History (Updated 09/07/24 @ 10:18 by Amy Li MA) History of wisdom tooth extraction History of hand surgery Family History (Updated 09/07/24 @ 10:18 by Amy Li MA) Other Cancer Diabetes Heart attack Hypertension Social History (Updated 09/07/24 @ 10:19 by Amy Li MA) Smoking Status: Never smoker alcohol intake: never substance use type: denies use current occupational status: other details: stay @ home Travel in the last 8 weeks?: None household members: spouse marital status: Have you lived/traveled outside US in past 30 days?: No Contact w/someone who lives/traveled outside US past 30 days?: No Exposure to someone with infectious disease in past 14 days?: No Do you have a fever (greater than 100.4 F or 38 C)?: No Have you tested positive for COVID-19?: No Exposed to someone with COVID-19 in past 14 days?: No Do you have a sore throat?: No Do you have a cough?: No Do you have any weakness?: No Do you have any diarrhea?: No Are you experiencing any unusual bleeding?: No Do you have any muscle aches/pain?: No Do you have any abdominal pain?: No Are you experiencing loss of taste or smell?: No ROS Obtained: Yes All systems reviewed & no additional complaints except as documented Physical Exam General General appearance: alert and in no apparent distress Head Head exam: atraumatic and normocephalic Eye Eye exam: Present normal appearance, PERRL and EOMI ENT ENT exam: Present normal exam and normal external ear exam Neck Neck exam: Present normal inspection, full ROM and trachea midline Chest Chest inspection: Present normal inspection and symmetric chest wall rise; Absent tenderness Respiratory Respiratory exam: Absent respiratory distress Cardiovascular Cardiovascular exam: Present regular rate, normal rhythm and other (appears warm and well perfused) Abdominal Exam Abdominal exam: Absent distention or tenderness Extremities Exam Extremities exam: Present normal inspection and full ROM Neurological Exam Neurological exam: Present alert and oriented X3 Psychiatric Psychiatric exam: Present normal affect Skin Skin exam: Present warm and dry Medical Decision Making Medical Records Medical records reviewed: Yes I reviewed the patient's medical records. Screening: Per USPSTF and CDC recommendations, given the prevalence of disease in our region, it is our hospital?s policy to screen for HIV and viral Hepatitis for all patients aged 18 and over and those with ongoing risk factors. Randy Inquiry Pt receiving controlled substance: No Randy was queried for this patient: No Vital Signs: 12/27/24 07:58 12/27/24 08:30 Temperature 98.4 F Temperature Source Oral Pulse Rate 103 H Pulse Rate [Radial] 90 Respiratory Rate 18 Blood Pressure 180/98 H Blood Pressure [Left Arm] 183/109 H Blood Pressure Mean 127 Blood Pressure Mean [Left Arm] 133 Blood Pressure Source [Left Arm] Automatic Cuff Blood Pressure Position [Left Arm] Sitting 02 Sat by Pulse Oximetry 98 98 Oxygen Delivery Method Room Air Lab Data Lab results reviewed: Yes I reviewed the patient's lab results. Lab Results 12/27/24 08:22: WBC 6.4, RBC 4.87, Hgb 13.6, Hct 41.3, MCV 84.8, MCH 27.9, MCHC 32.9, RDW 13.7, Plt Count 331, MPV 10.6 H, Neut % (Auto) 61.0, Lymph % (Auto) 30.4, [place] % (Auto) 5.3, Eos % (Auto) 1.9, Baso % (Auto) 1.1, Neut # (Auto) 3.9, Lymph # (Auto) 2.0, [place] # (Auto) 0.3, Eos # (Auto) 0.1, Baso # (Auto) 0.1, PT 10.8, INR 0.97, Sodium 139, Potassium 3.7, Chloride 105, Carbon Dioxide 24, Anion Gap 13.7, BUN 7, Creatinine 0.70, Estimated Creat Clear 127, Estimated GFR 89, Est GFR ( Amer) 107, Glucose 113 H, Calcium 9.2, Total Bilirubin 0.5, AST 27, ALT 17, Alkaline Phosphatase 65, Total Protein 8.3 H, Albumin 4.7, Globulin 3.6 H, Albumin/Globulin Ratio 1.3 12/27/24 08:22 12/27/24 08:22 Orders (Tests/Meds): ORDERS Category Date Time Status CBC w/Auto Diff [Complete Blood Count Auto Diff] Stat Lab 12/27/24 08:22 Completed CMP [Comprehensive Metabolic Panel] Stat Lab 12/27/24 08:22 Completed Hepatitis C Ab Qual. W/ RFX Stat Lab 12/27/24 08:22 Received PT INR [Prothrombin Time INR] Stat Lab 12/27/24 08:22 Completed Medical Decision Narrative: MDM In summary, this 49-year-old female presents to the emergency department today with vaginal bleeding. Initial evaluation the patient the patient is comfortable, clinically stable. Differential diagnosis includes but is not limited to uterine fibroid, vaginal laceration, cervical fusion, coagulopathy, uterine hemorrhage, uterine atony. I carefully reviewed this patient's medical history. Given the fact that she has a known diagnosis of uterine fibroids and feels that the symptoms are similar to the heavy bleeding she has experienced every month while on her period, I do not think that she would benefit from additional imaging studies. I confirmed that the patient had had recent cervical exams decreasing the likelihood that in the interim she has developed a cervical lesion that would cause bleeding, she has no concern for vaginal laceration or trauma, and this bleeding is painless which is typical for her. I offered the patient and a vaginal exam to ensure that there was no other causes of bleeding but she felt confident that the fibroids were causing her symptoms. Given that the plan was put in place to perform a laboratory workup and if the patient was anemic consider transfer to the [facility] for more emergent management. Laboratory results personally interpreted by me showed no leukocytosis, no anemia, no major metabolic abnormalities. Given this extremely reassuring workup I felt comfortable discharging the patient home with plans for close follow-up with her program review director. She was provided with careful return precautions and felt comfortable with discharge at this time. Critical Care Critical Care Time Critical Care Time: No
[2024-12-27 08:29] LABS: Hematocrit 41.3 % (37.0-47.0); Hemoglobin 13.6 g/dL (12.2-16.2); Immature Granulocytes % 0.3 %; Mean Corpuscular HGB Conc 32.9 g/dL (31.8-35.4); Mean Corpuscular Hemoglobin 27.9 pg (27.0-31.2); Mean Corpuscular Volume 84.8 fl (81-99); Nucleated Red Blood Cells % 0 %; Platelet Count 331 K/mm3 (142-424); Red Blood Count 4.87 M/mm3 (4.20-5.40); Red Cell Distribution Width-SD 42.5 fL; White Blood Count 6.4 K/mm3 (4.8-10.8)
[2024-12-27 08:30] VITALS: BP 180/98; PULSE 103; O2SAT 98
[2024-12-27 08:34] LABS: Albumin Level 4.7 g/dl (3.5-5.0); Chloride 105 mmol/L (98-107); Potassium 3.7 mmoL/L (3.5-5.1); Sodium 139 mmol/L (136-145)
[2024-12-27 08:37] LABS: Alanine Aminotransferase 17 U/L (12-78); Albumin/Globulin Ratio 1.3 (1.1-1.8); Alkaline Phosphatase 65 U/L (38-126); Anion Gap 13.7 mEq/L (5-15); Aspartate Amino Transferase 27 U/L (14-36); Bilirubin,Total 0.5 mg/dl (0.2-1.3); Blood Urea Nitrogen 7 mg/dl (7-17); Carbon Dioxide 24 mmol/L (22.0-30.0); Creatinine Clearance Estimated 127 mL/min (50-200); Creatinine,Serum 0.70 mg/dl (0.52-1.04); Estimated Glomerular Filt Rate 89 ml/min (>60); GFR (African American) 107 ML/MIN (>60); Globulin 3.6 g/dL (1.3-3.2); Total Protein,Serum 8.3 g/dl (6.3-8.2)
[2024-12-27 08:38] LABS: Calcium 9.2 mg/dl (8.4-10.2); Glucose 113 mg/dl (74-100)
[2024-12-27 08:40] LABS: INR 0.97 (0.9-1.1); Prothrombin Time 10.8 seconds (10.1-12.5)
--- NOTE | 2024-12-27 08:53 | PC.NURSE ---
PT ASSISTED TO BR
[2024-12-27 09:39] LABS: Hepatitis C Ab Qual. W/ RFX NEGATIVE (Negative)
[2024-12-27 09:56] VITALS: BP 175/90; PULSE 90; RESP 18; TEMP 36.8; O2SAT 98
== END 2024-12-27 10:04 | disposition home or self-care (01) ==
PROVIDERS: Emergency Provider Student in an Organized Health Care Education/Training Program; PCP Family Medicine Addiction Medicine
DX: N92.0 Excessive and frequent menstruation with regular cycle (principal); R42 Dizziness and giddiness; D25.9 Leiomyoma of uterus, unspecified
CPT/HCPCS: 80053; 85025; 85610; 86803; 99283; 99284

== ENCOUNTER 2025-01-06 08:05 | Outpatient (CLI) | payer MEDICAID, SELFPAY ==
[2025-01-06 09:38] LABS: Sodium 140 mmol/L (136-145)
[2025-01-06 09:39] LABS: Potassium 4.1 mmoL/L (3.5-5.1)
[2025-01-06 09:42] LABS: Cholesterol 253 mg/dl (140-200); HDL Cholesterol 39 mg/dl (40-60); Magnesium 2.2 mg/dl (1.6-2.3); Triglycerides 260 mg/dl (30-150)
[2025-01-06 10:01] LABS: 25-OH Vitamin D, Total 33.8 ng/mL (30-100)
[2025-01-06 10:16] LABS: Thyroid Stimulating Hormone 3.86 uIU/mL (0.465-4.68)
[2025-01-06 10:20] LABS: Ferritin 13.8 ng/ml (6.24-137)
[2025-01-06 11:11] LABS: Folate > 20.00 ng/mL
[2025-01-06 11:46] LABS: Vitamin B12 372 pg/mL (239-931)
[2025-01-06 11:53] LABS: Free T4 (Free Thyroxine) 1.30 ng/dl (0.78-2.19)
== END 2025-01-06 23:59 | disposition home or self-care (01) ==
PROVIDERS: Internal Medicine Endocrinology, Diabetes & Metabolism; PCP Family Medicine Addiction Medicine; Visit Provider Family Medicine Addiction Medicine
DX: Z01.89 Encounter for other specified special examinations (principal); E06.3 Autoimmune thyroiditis
CPT/HCPCS: 36415; 80061; 82306; 82607; 82728; 82746; 83735; 84132; 84295; 84439; 84443

== ENCOUNTER 2025-03-11 09:52 | Outpatient (CLI) | payer MEDICAID, SELFPAY ==
--- OUTSIDE RECORDS SUMMARY | 2016-02-08 08:15 | XMS_ITS | Encounter Summary ---
[facility] Address [address] [place] [address] Care Team Providers Care Animal Care Assistant Name Role Phone Unavailable Primary Care Provider Unavailabl e Reason for Referral * Diagnostic Imaging (Routine) - Closed Specialty Diagnoses / Procedures Referred By Contac t Referred To Contact Radiology Diagnoses Threatened Procedures US Ob Transvaginal Sajan Rubi MD [address] [place] [address] Phone: tel: fax: [address] [address] Phone: tel: fax: Referral ID Status Reason Start Date Expiration Date Visits Re quested Visits Authorized [id number] Closed 02/05/2016 08/03/2016 1 1 Reason for Visit * Diagnostic Imaging (Routine) - Closed Specialty Diagnoses / Procedures Referred By Contac t Referred To Contact Radiology Diagnoses Threatened Procedures US Ob Transvaginal Sajan Rubi MD [address] [place] [address] Phone: tel: fax: [address] [address] Phone: tel: fax: Referral ID Status Reason Start Date Expiration Date Visits Re quested Visits Authorized [id number] Closed 02/05/2016 08/03/2016 1 1 Encounter Details Date Type Department Care Team (Latest Contact Info) Description 02/08/2016 9:15 AM EDT Hospital Encounter [facility] [address] [facility] [address] [place] [address] Threatened Social History Tobacco Use Types Packs/Day Years Used Date Smoking Tobacco: Former Cigarettes 0.5 5 0 04/07/1990 - 04/07/1995 Passive Smoke Exposure: Past Smokeless Tobacco: Former Alcohol Use Standard Drinks/Week Comments Not Currently 0 (1 standard drink = 0.6 oz pur e alcohol) soc Comments No Sex and Gender Information Value Date Recorded Sex Assigned at Female 08/12/2024 10:05 AM EDT Legal Sex Female 11:48 AM EDT Gender Identity Not on file Sexual Orientation Not on file documented as of this encounter Plan of Treatment Upcoming Encounters Date Type Department Care Team (Late st Contact Info) Description 03/22/2025 10:00 AM EST Office Visit [facility] ENDOCRINOLOGY [address] [place] [address] PacittiMarlee, DO [address] [place] [address] documented as of this encounter Procedures Procedure Name Priority Date/Time Associated Diagnosis Comments OB TRANSVAGINAL Routine 02/08/2016 9: 52 AM EDT Threatened documented in this encounter Results * US Ob Transvaginal (02/08/2016 9:52 AM EDT) Anatomical Region Laterality Modality Body Ultrasound 02/08/2016 9:35 AM EDT Narrative 02/08/2016 7:00 PM EDT PAT NAME: BRYNN CORRIGAN MED REC#: [id number] DA: [id number] PAT GEND: F PAT TYPE: O EXAM ERMELINDA: [id number] REF PHYS SAJAN RUBI Indication ======== Threatened Ab., HCG values are dropping, pelvic pressure and diarrhea, AMA. History ====== Previous Outcomes 6 Para 3 Miscarriages 2 Method ====== Transvaginal ultrasound examination, Voluson E6. Adequate view. ========= Carlos . Number of fetuses: 1. Dating ====== LMP on: 12/05/2015 [place] by LMP 9 w + 2 d KIMBERLY by LMP: 09/10/2016 Assessment Gestational sac: uncertain Location: intrauterine GS mean 7.1 mm GS D1 7.6 mm GS D2 6.9 mm GS D3 6.9 mm Yolk sac: not visualized Embryo: not visualized Maternal Structures Uterus / Cervix Fibroids: Fibroids identified Uterine fibroids findings: Left. Intramural Uterine fibroid diameter 1 15.0 mm Uterine fibroid diameter 2 14.0 mm Uterine fibroid diameter 3 12.0 mm Uterine fibroid volume 1.319 cm Uterine fibroids findings: Fundal. Intramural Uterine fibroid diameter 1 16.0 mm Uterine fibroid diameter 2 15.0 mm Uterine fibroid diameter 3 14.0 mm Uterine fibroid volume 1.759 cm Other: Uterus and ovaries are within normal limits. Cost Estimating Clerk Comments Large nabothian cyst, measuring 23 x 22 x 16 mm. An anechoic area is present within the EMC, abnormally shaped for a gestational sac and appears empty. Impression ========= Probable Anembryonic gestation w/ blighted ovum, but an ectopic cannot be ruled out. Recommendation Follow-up as clinically indicated. Cost Estimating Clerk: Kandice Hassan [facility] Physician: Didier Villalobos MD Electronically signed by: Didier Villalobos MD at: 19:00 Procedure Note Didier Villalobos MD - 02/08/2016 PAT NAME: BRYNN CORRIGAN [facility] REC#: [id number] DA: [id number] PAT GEND: F PAT TYPE: O EXAM ERMELINDA: [id number] REF PHYS SAJAN RUBI Indication ======== Threatened Ab., HCG values are dropping, pelvic pressure and diarrhea,AMA. History ====== Previous Outcomes Gravida6 Para3 Miscarriages2 Method ====== Transvaginal ultrasound examination, Voluson E6. Adequate view. ========= Carlos . Number of fetuses: 1. Dating ====== LMP on:12/05/2015 [place] by [id number] w + 2 d KIMBERLY by LMP:09/10/2016 Assessment Gestational sac:uncertain Location:intrauterine GS mean7.1 mm GS D17.6 mm GS D26.9 mm GS D36.9 mm Yolk sac:not visualized Embryo:not visualized Maternal Structures Uterus / Cervix Fibroids:Fibroids identified Uterine fibroids findings:Left. Intramural Uterine fibroid diameter 115.0 mm Uterine fibroid diameter 214.0 mm Uterine fibroid diameter 312.0 mm Uterine fibroid volume1.319 cm Uterine fibroids findings:Fundal. Intramural Uterine fibroid diameter 116.0 mm Uterine fibroid diameter 215.0 mm Uterine fibroid diameter 314.0 mm Uterine fibroid volume1.759 cm Other:Uterus and ovaries are within normal limits. Cost Estimating Clerk Comments Large nabothian cyst, measuring 23 x 22 x 16 mm. An anechoic area is present within the EMC, abnormally shaped for agestational sac and appears empty. Impression ========= Probable Anembryonic gestation w/ blighted ovum, but an ectopic pregnancycannot be ruled out. Recommendation Follow-up as clinically indicated. Cost Estimating Clerk: Kandice Hassan RDMS Physician: Didier Villalobos MD Electronically signed by: Didier Villalobos MD at: 19:00 Sajan Rubi MD G US ORDERABLES Final Re sult documented in this encounter Visit Diagnoses Diagnosis Threatened documented in this encounter
--- OUTSIDE RECORDS SUMMARY | 2017-01-09 13:00 | XMS_ITS | Encounter Summary ---
[facility] Address [address] [place] [address] Care Team Providers Care Asphalt Paving Superintendent Name Role Phone Unavailable Primary Care Provider Unavailabl e Reason for Referral * Diagnostic Imaging (Routine) - Closed Specialty Diagnoses / Procedures Referred By Contac t Referred To Contact Radiology Diagnoses Enlarged uterus Procedures US Non-ob Transvaginal Sajan Rubi MD [address] [place] [address] Phone: tel: fax: [address] [address] Phone: tel: fax: Referral ID Status Reason Start Date Expiration Date Visits Re quested Visits Authorized [id number] Closed 12/20/2016 12/20/2017 1 1 Reason for Visit * Diagnostic Imaging (Routine) - Closed Specialty Diagnoses / Procedures Referred By Contac t Referred To Contact Radiology Diagnoses Enlarged uterus Procedures [place] [address] [place] [address] Phone: tel: fax: [address] [address] Phone: tel: fax: Referral ID Status Reason Start Date Expiration Date Visits Re quested Visits Authorized [id number] Closed 12/20/2016 12/20/2017 1 1 Encounter Details Date Type Department Care Team (Latest Contact Info) Description 01/09/2017 2:00 PM EDT Hospital Encounter [facility] [address] [facility] [address] [place] [address] Enlarged uterus Social History Tobacco Use Types Packs/Day Years [...] Description 03/22/2025 10:00 AM EST Office Visit [facility] ENDOCRINOLOGY [address] [place] [address] PacittiMarlee, DO [address] [place] [address] documented as of this encounter Procedures Procedure Name Priority Date/Time Associated Diagnosis Comments US NON-OB TRANSVAGINAL Routine 01/09/2017 3:06 PM EDT Enlarged uterus documented in this encounter Results * US Non-ob Transvaginal (01/09/2017 3:06 PM EDT) Anatomical Region Laterality Modality Body Ultrasound 01/09/2017 2:57 PM EDT Narrative 01/09/2017 6:42 PM EDT PAT NAME: BRYNN CORRIGAN MED REC#: [id number] DA: [id number] PAT GEND: F PAT TYPE: O EXAM ERMELINDA: [id number] REF PHYS SAJAN RUBI Indication ======== Enlarged uterus/cervix, ? fibroids, . Dyspareunia. History ====== Previous Outcomes 5 Para 3 Miscarriages 2 Assessment LMP on 12/25/2016. Day of cycle: 16. Method ====== Voluson E6, Transvaginal ultrasound examination, Color Doppler flow performed, 3D ultrasound examination. Adequate view. Uterus ====== Uterus: Normal Uterus position: Anteverted Myometrium: Homogeneous Endometrium: Uniform Cervix details: Hypoechoic cystic filled spaces are present in the cervical stroma. Uterus long 6.4 cm Uterus ap 4.3 cm Uterus tr 5.9 cm Uterus vol 84.6 cm Cervical length 3.07 cm Fibroids: Fibroids identified Uterine fibroids findings: Posterior. Intramural Uterine fibroid diameter 1 22.0 mm Uterine fibroid diameter 2 15.0 mm Uterine fibroid diameter 3 14.0 mm Uterine fibroid volume 2.419 cm Uterine fibroids findings: Posterior. Intramural Uterine fibroid diameter 1 16.0 mm Uterine fibroid diameter 2 14.0 mm Uterine fibroid diameter 3 9.7 mm Uterine fibroid volume 1.138 cm Right Ovary ========= Rt ovary: Normal Rt ovary D1 3.0 cm Rt ovary D2 2.5 cm Rt ovary D3 2.7 cm Rt ovary vol 10.4 cm Left Ovary ======== Lt ovary: poorly seen Lt ovary D1 3.0 cm Lt ovary D2 2.4 cm Lt ovary D3 2.9 cm Lt ovary vol 10.8 cm [place] ========= Normal. Telephone Messenger Comments Large nabothian cyst measuring 24 x 23 x 18 mm. Impression ========= The uterus is normal in size. Findings consistent with intramural fibroid(s). The endometrium appears sonographically normal in shape and appearance. Secretory appearing endometrium, consistent with stated menstrual history. Findings consistent with Nabothian cyst(s) of cervix. The ovaries appear sonographically normal in size, shape and morphology. Recommendation Follow-up as clinically indicated. Telephone Messenger: Kandice Hassan RDMS Physician: Didier Villalobos MD Electronically signed by: Didier Villalobos MD at: 18:42 Procedure Note Didier Villalobos MD - 01/09/2017 PAT NAME: BRYNN CORRIGAN [facility] REC#: [id number] DA: [id number] PAT GEND: F PAT TYPE: O EXAM ERMELINDA: [id number] REF PHYS SAJAN RUBI Indication ======== Enlarged uterus/cervix, ? fibroids, . Dyspareunia. History ====== Previous Outcomes Gravida5 Para3 Miscarriages2 Assessment LMP on 12/25/2016. Day of cycle: 16. Method ====== Voluson E6, Transvaginal ultrasound examination, Color Doppler flowperformed, 3D ultrasound examination. Adequate view. Uterus ====== Uterus:Normal Uterus position:Anteverted Myometrium:Homogeneous Endometrium:Uniform Cervix details:Hypoechoic cystic filled spaces are present in thecervical stroma. Uterus long6.4 cm Uterus ap4.3 cm Uterus tr5.9 cm Uterus vol84.6 cm Cervical length3.07 cm Fibroids:Fibroids identified Uterine fibroids findings:Posterior. Intramural Uterine fibroid diameter 122.0 mm Uterine fibroid diameter 215.0 mm Uterine fibroid diameter 314.0 mm Uterine fibroid volume2.419 cm Uterine fibroids findings:Posterior. Intramural Uterine fibroid diameter 116.0 mm Uterine fibroid diameter 214.0 mm Uterine fibroid diameter 39.7 mm Uterine fibroid volume1.138 cm Right Ovary ========= Rt ovary:Normal Rt ovary D13.0 cm Rt ovary D22.5 cm Rt ovary D32.7 cm Rt ovary vol10.4 cm Left Ovary ======== Lt ovary:poorly seen Lt ovary D13.0 cm Lt ovary D22.4 cm Lt ovary D32.9 cm Lt ovary vol10.8 cm [place] ========= Normal. Telephone Messenger Comments Large nabothian cyst measuring 24 x 23 x 18 mm. Impression ========= The uterus is normal in size. Findings consistent with intramuralfibroid(s). The endometrium appears sonographically normal in shape and appearance. Secretory appearing endometrium, consistent with statedmenstrual history. Findings consistent with Nabothian cyst(s) of cervix. The ovaries appear sonographically normal in size, shape and morphology. Recommendation Follow-up as clinically indicated. Telephone Messenger: Kandice Hassan RDMS Physician: Didier Villalobos MD Electronically signed by: Didier Villalobos MD at: 18:42 us Sajan Rubi MD IMG US ORDERABLES Final Re sult documented in this encounter Visit Diagnoses Diagnosis Enlarged uterus Hypertrophy of uterus documented in this encounter
--- OUTSIDE RECORDS SUMMARY | 2025-01-24 08:30 | XMS_ITS | Encounter Summary ---
[facility] Organization [facility] Address [address] [place] [id number] Care Team Providers Care Engineering Psychologist Name Role Phone Nikia Berry APRN Primary Care Provider [phone] Reason for Visit * Reason Comments Pre-op Exam Encounter Details Date Type Department Care Team (Late st Contact Info) Description 01/24/2025 9:30 AM EDT Office Visit [facility] [address] [place] [address] Ginny Allen MD [address] [facility] [address] [place] [id number] Menorrhagia with regular cycle (Primary Dx); ASCUS with positive high risk HPV cervical; Bulky or enlarged uterus; Fibroids, submucosal; Abnormal uterine bleeding (AUB) Social History Tobacco Use Types Packs/Day Years [...] Sign Reading Time Taken Comments Blood Pressure 129/77 01/24/2025 9:18 AM EDT Pulse - - Temperature - - Respiratory Rate - - Oxygen Saturation - - Inhaled Oxygen Concentration - - Weight 89.3 kg (196 lb 12.8 oz) 01/24/2025 9:18 AM EDT Height 157.5 cm (5' 2.01 ) 01/24/2025 9:18 AM ED T Body Mass Index 35.98 01/24/2025 9:18 AM EDT documented in this encounter Progress Notes * Ginny Allen MD - 01/24/2025 9:30 AM EDT Images from the original note were not included. Gynecologic Preoperative Exam Note Subjective Brynn Singh is a 49 y.o. year old who is scheduled for surgery due to menorrhagia, AUB and uterine fibroids. She is scheduled for a hysteroscopy D&C at [facility]. Her surgery is scheduled for 02/01/25 at 9:45 a.m. Her LMP was 01/18/25. Her control method is vasectomy. Her BMI is35.98. She has reviewed the informational pamphlet on hysteroscopy D&C pre and post op instructions and colposcopy/ cervical biopsy info sheet. She understands the risks of bleeding, infection, possible damage to other organ systems, includingbut not limited to the gastrointestinal tract and genitourinary tract. She also understands the specific risks listed in the preop information (video, pamphlets, etc.). She has reviewed and signed the preop consent form. She has been instructed to have a light dinner the night before surgery, then nothing to eat or drink after midnight. The day of surgery do not chew gum or smoke. Remove all jewelry, nail cypriot, contact lenses prior to coming to the hospital. Do not bring valuables or large sums of money with you.Patient was instructed on what time to arrive and where to check in, maps were given. She was instructed that she will meet an Anesthesiologist and that an IV will be started to provide fluids and sedation. The total time of procedure was discussed. She was instructed that she will need a transportation driver. She has confirmed that she is not allergic to Latex. Past Medical History: Diagnosis Date Anemia Couple months Anxiety 2014 Fibroids uterine Goiter Harinder's disease 2003 Hyperlipidemia Hypertension Hypothyroid 2003 Thyroid nodule Vitamin D deficiency White coat syndrome with diagnosis of hypertension Past Surgical History: Procedure Laterality Date CHOLECYSTECTOMY N/A D & C WITH SUCTION 2015 HAND SURGERY Left 2004 ligaments in finger LAPAROSCOPIC CHOLECYSTECTOMY 2002 TEETH EXTRACTION Bilateral 2022 Had all teeth removed OB History Para Term AB Living 7 3 3 0 3 4 SAB IAB Ectopic Molar Multiple Live Births 3 0 0 0 0 4 # Outcome Date GA Lbr Jim/2nd Weight Sex Type Anes PTL Lv 7 Term 04/08/05 3402 g (7 lb 8 oz) M Vag-Spont PETRA Name: Brian 6 Term 11/10/99 3402 g (7 lb 8 oz) M Vag-Spont PETRA Name: Bertin 5 Term 08/17/95 3317 g (7 lb 5 oz) F Vag-Spont PETRA Name: Brie 4 3 SAB SAB 2 SAB 1 SAB Obstetric Comments 1995 - Brie (f) 1999 - Bertin 2005 - Brian (m) Tobacco Use History[1] Social History Substance and Sexual Activity Alcohol Use Not Currently Comment: soc Social History Substance and Sexual Activity Drug Use No Prior to Admission medications Medication Sig Start Date End Date Taking? Authorizing Provider escitalopram (Lexapro) 10 MG tablet Take 1 tablet by mouth Daily. 11/29/24 11/29/25 Ginny Allen MD Ferrous Sulfate ER 45 MG tablet controlled-release Take by mouth. Provider, MD Radhika ibuprofen (ADVIL,MOTRIN) 800 MG tablet Take 1 tablet by mouth Every 8 (Eight) Hours As Needed for Moderate Pain. 11/25/24 Ginny Allen MD leuprolide (Lupron Depot, 3-Month,) 11.25 MG injection Inject 11.25 mg into the appropriate muscle as directed by prescriber Every 3 (Three) Months. Bring to Physician's office for the injection 12/20/24 Ginny Allen MD norethindrone (Aygestin) 5 MG tablet Take 1 tablet by mouth Daily. 12/20/24 Ginny Allen MD Synthroid 50 MCG tablet Take 1 tablet by mouth Daily. 12/23/24 12/23/25 Marlee Krishnan, Tranexamic Acid (Lysteda) 650 MG tablet Take 2 tablets by mouth 3 times daily for up to 5 days onlywhile actively bleeding 12/20/24 Ginny Allen MD Allergies[2] Review of Systems Objective BP 129/77 Ht 157.5 cm (62.01 ) Wt 89.3 kg (196 lb 12.8 oz) LMP 01/18/2025 (Exact Date) BMI 35.98 kg/m?? General: well developed; well nourished no acute distress mentation appropriate alert and oriented x 3 Heart: regular rate and rhythm, S1, S2 normal, no murmur, click, rub or gallop Lungs: breathing is unlabored clear to auscultation bilaterally Abdomen: soft, non-tender; no masses Pelvis: Not performed. Assessment Problems Addressed this Visit Menorrhagia with regular cycle - Primary Relevant Orders Iron Profile w/o Ferritin Ferritin Other Visit Diagnoses ASCUS with positive high risk HPV cervical Bulky or enlarged uterus Fibroids, submucosal Abnormal uterine bleeding (AUB) Diagnoses Codes Comments Menorrhagia with regular cycle - Primary ICD-10-CM: N92.0 ICD-9-CM: 626.2 ASCUS with positive high risk HPV cervical ICD-10-CM: R87.610, R87.810 ICD-9-CM: 795.01, 795.05 Bulky or enlarged uterus ICD-10-CM: N85.2 ICD-9-CM: 621.2 Fibroids, submucosal ICD-10-CM: D25.0 ICD-9-CM: 218.0 Abnormal uterine bleeding (AUB) ICD-10-CM: N93.9 ICD-9-CM: 626.9 Plan We plan hysteroscopy, D&C and Colpo with biopsies Risks of surgery were reviewed with the patient including risks of bleeding, infection, damage to other organ systems including, but not limited to GI and tracts (bowel, bladder, blood vessels, nerves) risks of Anesthesia, as well as the risk the surgery will not produce the desired results, possible need for additional surgery, , risk of uterine perforation. Randy has been obtained and reviewed Pain Medication Consent Form has been signed. A review regarding proper medication administration, impact on driving and working while medicated, the safety of use in , the potential for overdose and the proper disposal and storage of controlled medications has been done with the patient. The ASCVD Risk score (Sánchez WALKER, et al., 2019) failed to calculate for the following reasons: Cannot find a previous HDL lab Cannot find a previous total cholesterol lab * - Cholesterol units were assumed Patient reporting vasomotor symptoms, joint pain, brain fog and is interested in HRT. Pros and consof this were reviewed with her in detail today and we discussed options of a Mirena with estradiol,progestin only pill with estradiol or day of treatment. Bleeding profiles of these were discussed with her. We also reviewed potential risks in detail. I have also offered her insertion of her MirenaIUD while in the OR, but she declines this today. She is interested in potentially having endometrial biopsy and colpo done under nitrous oxide if this is still available in the [place] office. Sheis also asking again about hysterectomy. We had previously discussed Lupron with add back therapy and attempt to shrink her fibroids and she was seeing Dr. Ledesma for a robotic consultation given her uteromegaly and large fibroid. She did not have that appointment, so we will reschedule this again today. I have told her prior to any hysterectomy she would still need colposcopy and endometrial sampling to rule out potential pathologic causes. Pt desires to try the POP that has been sent in for now. Patient counseled that hormone treatment should be [...] bleeding or pain should be reported immediately. I spent 38 minutes caring for Brynn on this date of service. This time includes time spent by me in the following activities: preparing for the visit, reviewing tests, performing a medically appropriate examination and/or evaluation, counseling and educating the patient/family/caregiver, documenting information in the medical record, and ordering test(s) Ginny Allen MD 01/24/2025 [1] Social History Tobacco Use Smoking Status Former Current packs/day: 0.00 Average packs/day: 0.5 packs/day for 5.0 years (2.5 ttl pk-yrs) Types: Cigarettes Start date: 04/07/1990 Quit date: 04/07/1995 Years since quittin.8 Passive exposure: Past Smokeless Tobacco Former [2] Allergies Allergen Reactions Bactrim [Sulfamethoxazole-Trimethoprim] Penicillins documented in this encounter Plan of Treatment Upcoming Encounters Date Type Department Care Team (Late st Contact Info) Description 03/22/2025 10:00 AM EST Office Visit [facility] [address] [place] [address] Marlee Krishnan, DO [address] [place] [address] documented as of this encounter Procedures Procedure Name Priority Date/Time Associated Diagnosis Comments IRON PROFILE Routine 01/24/2025 10:46 AM EDT Menorrhagia with regular cycle FERRITIN Routine 01/24/2025 10:46 AM EDT Menorrhagia with regular cycle documented in this encounter Results * Ferritin (01/24/2025 10:46 AM EDT) Ferritin 30.00 13.00 - 150.00 ng/mL [facility] Comment:Results may be false ly decreased if patient taking Biotin. Blood 01/24/2025 10:4 6 AM EDT 01/24/2025 Narrative [facility] (AMBULATORY) - 01/25/2025 6:09 AM EDT Performed at: 01 - [address] [id number] Nail Tech: Chris Payton MD, Phone: [phone] Patient Fasting: N us Ginny Allen MD LAB BLOOD ORDERABLES Final Resul t [facility] (AMBULATORY) [address] [place] [address], [place] [phone] [facility] [address] [place] [address], [place] [phone] * (ABNORMAL) Iron Profile w/o Ferritin (01/24/2025 10:46 AM EDT) TIBC 417 mcg/dL [facility] UIBC 384(H) 112 - 346 mcg/dL [facility] Iron 33(L) 37 - 145 mcg/dL [facility] Iron Saturation 8(L) 20 - 50 % [facility] Blood 01/24/2025 10:4 6 AM EDT 01/24/2025 Narrative [facility] (AMBULATORY) - 01/25/2025 6:09 AM EDT Performed at: [address] [place] [id number] Nail Tech: Chris Payton MD, Phone: [phone] Patient Fasting: N us Ginny Allen MD LAB BLOOD ORDERABLES Final Resul t [facility] (AMBULATORY) [address] [place] [address], [place] [phone] [facility] [address] [place] [address], [place] [phone] documented in this encounter Visit Diagnoses Diagnosis Menorrhagia with regular cycle- Primary ASCUS with positive high risk HPV cervical Bulky or enlarged uterus Hypertrophy of uterus Fibroids, submucosal Submucous leiomyoma of uterus Abnormal uterine bleeding (AUB) documented in this encounter Care Teams Engineering Psychologist Relationship Specialty Start Date End Date Nikia Berry APRN [address] [place] [address] PCP - General Nurse Practitioner 06/01/24 documented as of this encounter
--- OUTSIDE RECORDS SUMMARY | 2025-03-11 09:57 | XMS_ITS | Encounter Summary ---
Author Organization [facility] Address [address] [place] [address] Care Team Providers Care Procedure Tech Name Role Phone Nikia Berry APRN Primary Care Provider [phone] Encounter Details Date Type Department Care Team (Late st Contact Info) Description 01/28/2025 Results Follow-Up [facility] OBGYN [address] [place] [address] Ginny Allen MD [address] [facility] [address] [place] [id number] Social History Tobacco Use Types Packs/Day Years [...] Progress Notes * Ginny Allen MD - 01/28/2025 9:00 AM EDT Please call patient about results. Still iron deficiency, a little better than a month ago documented in this encounter Plan of Treatment Upcoming Encounters Date Type Department Care Team (Late st Contact Info) Description 03/22/2025 10:00 AM EST Office Visit [facility] ENDOCRINOLOGY [address] [facility] [address] [place] [address] Marlee Krishnan, DO [address] [address] documented as of this encounter Visit Diagnoses Not on filedocumented in this encounter Care Teams Procedure Tech Relationship Specialty Start Date End Date Nikia Berry APRN [address] [place], [place] [address]boby [place], [place] [id number] PCP - General Nurse Practitioner 06/01/24 documented as of this encounter
--- OUTSIDE RECORDS SUMMARY | 2025-03-11 09:57 | XMS_ITS | Clinical Summary ---
Author Organization [employer] ([place], [place], [place], [place], [place]) Address [address] [place] [address] Care Team Providers Care Appraiser Land Name Role Phone Marisol Uribe MD Primary Care Provider [phone] Allergies Active Allergy Reactions Criticality Noted Date [...] Date Federico rded Speak language other than Vincentian at home Not on file 04/16/2023 Want [...] AM EDT Performed at: 01 - [facility] [address] [id number] Health Screener: Tommy Benjamin PhD, Phone: [phone] Marisol Uribe MD LAB BLOOD ORDERABLES Final Res ult [facility] * HM MAMMOGRAPHY (04/23/2022) Anatomical Region Laterality Modality Other Marisol Uribe MD HEALTH MAINTENANCE Final Resul t from Last 3 Months or Most Recently Relevant to Health Maintenance [facility] Care Teams Appraiser Land Relationship Specialty Start Date End Date Marisol Uribe MD [address] [facility] [address] [place] [id number] PCP - General Family Medicine 03/14/22
--- OUTSIDE RECORDS SUMMARY | 2025-03-11 09:57 | XMS_ITS | Encounter Summary ---
Author Organization [facility] Address [address] [place] [id number] Care Team Providers Care Camera Supervisor Name Role Phone Nikia Berry APRN Primary Care Provider [phone] Encounter Details Date Type Department Care Team (Late st Contact Info) Description 01/25/2025 Telephone [facility] OBGYN [address] [facility] [address] [place] [address] Ginny Allen MD [address] [facility] [address] [place] [address] Social History Tobacco Use Types Packs/Day Years [...] encounter Miscellaneous Notes * Telephone Encounter - Jackeline Oliveira RegSched Rep - 01/25/2025 3:54 PM EDT Lvm X2 to see if patient would like Colpo & EMB next as long as she is ok if the nitrous may not be available next in office documented in this encounter Plan of Treatment Upcoming Encounters Date Type Department Care Team (Late st Contact Info) Description 03/22/2025 10:00 AM EST Office Visit [facility] ENDOCRINOLOGY [address] [address] Marlee Krishnan, [address] [phone] documented as of this encounter Visit Diagnoses Not on filedocumented in this encounter Care Teams Camera Supervisor Relationship Specialty Start Date End Date Nikia Berry APRN [address] [place], [place] [phone] PCP - General Nurse Practitioner 06/01/24 documented as of this encounter
--- OUTSIDE RECORDS SUMMARY | 2025-03-11 09:57 | XMS_ITS | Encounter Summary ---
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 That the provider has denied it. Patient is wanting us to call pharmacy to get this resolved. * Telephone Encounter - Jayla Yip MA - 02/07/2025 12:24 PM EST Rx Refill Note Requested Prescriptions Pending Prescriptions Disp Refills Synthroid 50 MCG tablet [Pharmacy Med Name: SYNTHROID 50MCG TABLET] 30 tablet 4 Sig: TAKE ONE (1) TABLET BY MOUTH ONCE DAILY Last office visit with prescribing clinician: 08/19/2024 Next office visit with prescribing clinician: 03/09/2025 Denied. 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
--- OUTSIDE RECORDS SUMMARY | 2025-03-11 09:57 | XMS_ITS | Clinical Summary ---
Author Organization [facility] Address [address] [place] [address] Care Team Providers Care Auto Collision Repair Instructor Name Role Phone Cristi Lee MD Primary Care Provider [phone] Allergies Active Allergy Reactions Criticality Noted Date Comments Penicillins Unknown - Patient st ates they do not know rxn details Low 10/16/2017 Sulfamethoxazole-Trimethopri m Unknown - Patient states they do not know rxn details Low 10/16/2017 Medications hydrOXYzine pamoate (Vistaril) 25 MG capsule Take 1 capsule (25 mg total) by mouth every night. 30 capsule 05/29/2022 Active Encounters Date Type Department Care Team Description 01/19/2025 Telephone [facility] [address] [place] [address] Cristi Lee MD [facility] Clinical Concern/Question (menopause) from Last 3 Months Social History Tobacco Use Types Packs/Day Years [...] Care Team (Late st Contact Info) Description 10/11/2025 9:20 AM EDT Office Visit [place] [facility] [address] [place] [address] Alicia Polanco MD [address] [place] [address] Health Maintenance Due Date Last Done Comments [...] 02/13/2024 [facility]-Zoster Vaccines (1 of 2) 02/13/2024 [id number] Vaccine ( - 25-26 season) 2024 [facility]-Influenza Vaccine (#1) 2024 [facility]-HIV [...] PM EDT 10/16/2017 6:08 PM EDT us Caned Morales MD LAB BLOOD ORDERABLES Final Re sult Performing Organization Address City/[facility] Co de Phone Number SUNQUEST * Hepatitis C Antibody (10/16/2017 12:36 PM EDT) Hepatitis C Antibody NEGATIVE Reference Range: Negative SUNQUEST 10/16/2017 12:3 6 PM EDT 10/16/2017 6:08 PM EDT us Cande Morales MD LAB BLOOD ORDERABLES Final Re sult SUNQUEST from Last 3 Months or Most Recently Relevant to Health Maintenance Insurance [employer] Care Teams Auto Collision Repair Instructor Relationship Specialty Start Date End Date Cristi Lee MD [address] [place] [address] PCP - General 08/18/20
--- OUTSIDE RECORDS SUMMARY | 2025-03-11 09:57 | XMS_ITS | Encounter Summary ---
Author Organization [facility] Address [address] [place] [id number] Care Team Providers Care Traffic Sign Erection Supervisor Name Role Phone Cristi Lee MD Primary Care Provider [phone] Reason for Visit * Reason Onset Date Comments HCN Clinical Concern/Question 01/19/2025 me nopause Encounter Details Date Type Department Care Team (Late st Contact Info) Description 01/19/2025 Telephone [facility] [address] [place] [address] Cristi Lee MD [address] [place] [address] [facility]CN Clinical Concern/Question (menopause) Social History Tobacco Use Types Packs/Day Years Used Date Smoking Tobacco: Never Comments Unknown Sex and Gender Information Value Date Recorded Sex Assigned at Not on file Legal Sex Female 8:19 PM EDT Gender Identity Not on file Sexual Orientation Not on file documented as of this encounter Miscellaneous Notes * Telephone Encounter - Jia Fried - 01/20/2025 8:42 AM EDT Called and spoke with patient. Secured appt for October with Collin and mailed reminder with SURVEY RESEARCH MANAGER paperwork * Telephone Encounter - Nabila Paz - 01/19/2025 9:14 AM EDT Patient Phone Message Reason for Call:request menopause clinic appt Best contact number and optimal time of day to reach caller:[phone] Note: Please do not reply to this message. Follow-up communication and further actions as a result of this message need to be communicated with the patient directly, if the patient is not active onMyChart. If the patient is active on MyChart, they will receive notification of the communication/outcome via MyChart. documented in this encounter Plan of Treatment Upcoming Encounters Date Type Department Care Team (Late st Contact Info) Description 10/11/2025 9:20 AM EDT Office Visit [facility] [address] [place] [address] Alicia Polanco MD [address] [place] [address] documented as of this encounter Visit Diagnoses Not on filedocumented in this encounter Care Teams Traffic Sign Erection Supervisor Relationship Specialty Start Date End Date Cristi Lee MD [address] [place] [address] PCP - General 08/18/20 documented as of this encounter
--- OUTSIDE RECORDS SUMMARY | 2025-03-11 09:57 | XMS_ITS | Encounter Summary ---
Author Organization [facility] Address [address] [place] [id number] Care Team Providers Care Host/Hostess Name Role Phone Nikia Berry APRN Primary Care Provider [phone] Encounter Details Date Type Department Care Team (Late st Contact Info) Description 01/31/2025 Telephone [facility] O[facility] [address] [facility] [address] [place] [address] Ginny Allen MD [address] [facility] [address] [place] [address] Social History Tobacco Use Types Packs/Day Years [...] encounter Miscellaneous Notes * Telephone Encounter - Veronique Fernandez RegSched Rep - 01/31/2025 10:07 AM EDT LVM for pt w/Sx arrival information for tomorrow. documented in this encounter Plan of Treatment Upcoming Encounters Date Type Department Care Team (Late st Contact Info) Description 03/22/2025 10:00 AM EST Office Visit [facility] ENDOCRINOLOGY [address] [facility] [address] [place] [address] Marlee Krishnan, [address] [facility] [address] [place], [place] [id number] documented as of this encounter Visit Diagnoses Not on filedocumented in this encounter Care Teams Host/Hostess Relationship Specialty Start Date End Date Nikia Berry APRN [address] [place], [place] [id number] PCP - General Nurse Practitioner 06/01/24 documented as of this encounter
--- OUTSIDE RECORDS SUMMARY | 2025-03-11 09:57 | XMS_ITS | Referral Summary ---
Author Organization [facility] ([place], [place], [place], [place], [place]) Address [address] [place] [address] Care Team Providers Care Dispatcher Ship Pilot Name Role Phone Marisol Uribe MD Primary Care Provider [phone] Allergies Active Allergy Reactions Criticality Noted Date [...] Date Federico rded Speak language other than Namibian at home Not on file 04/16/2023 Want [...] - 07/17/2022 4:06 AM EDT Performed at: [address] [place] [id number] Project Systems Engineer: Tommy Benjamin PhD, Phone: [phone] us Marisol Uribe MD LAB BLOOD ORDERABLES Final Res ult [facility] * HM MAMMOGRAPHY (04/23/2022) Anatomical Region Laterality Modality Other us Marisol Uribe MD HEALTH MAINTENANCE Final Resul t from Last 3 Months or Most Recently Relevant to Health Maintenance Insurance [facility] Care Teams Dispatcher Ship Pilot Relationship Specialty Start Date End Date Marisol Uribe MD [address] [facility] [place] [address] PCP - General Family Medicine 03/14/22
--- OUTSIDE RECORDS SUMMARY | 2025-03-11 09:57 | XMS_ITS | Encounter Summary ---
[facility] Organization [facility] Address [address] [place] [id number] Care Team Providers Care Quality Coordinator Name Role Phone Nikia Berry APRN Primary Care Provider [phone] Encounter Details Date Type Department Care Team (Late Contact Info) Description 02/01/2025 Telephone [facility] O[facility]YN [address] [facility] [address] [place] [address] Ginny Allen MD [address] [facility] [address] [place] [address] Social History Tobacco Use Types Packs/Day Years [...] Encounter - Veronique Fernandez RegSched Rep - 02/01/2025 9:19 AM EDT LVM for pt to ask if she is wanting to reschedule sx. Gave pt direct number to call back if she wants to schedule. documented in this encounter Plan of Treatment Upcoming Encounters Date Type Department Care Team (Late st Contact Info) Description 03/22/2025 10:00 AM EST Office Visit [facility] ENDOCRINOLOGY [address] [facility] [address] [place] [address] Marlee Krishnan, DO [address] [facility] [address] [place] [address] documented as of this encounter Visit Diagnoses Not on filedocumented in this encounter Care Teams Quality Coordinator Relationship Specialty Start Date End Date Nikia Berry APRN [address] [place], [place] [id number] PCP - General Nurse Practitioner 06/01/24 documented as of this encounter
--- OUTSIDE RECORDS SUMMARY | 2025-03-11 09:57 | XMS_ITS | Encounter Summary ---
Author Organization [facility] Address [address] [place] [phone] Care Team Providers Care Credit Product Analyst Name Role Phone Nikia Berry APRN Primary Care Provider [phone] Reason for Visit * Reason Onset Date Comments Med Management 02/01/2025 Encounter Details Date Type Department Care Team (Late st Contact Info) Description 02/01/2025 Telephone [facility] ENDOCRINOLOGY [address] [place] [address] Marlee Krishnan DO [address] [place], [place] [id number] Med Management Social History Tobacco Use Types Packs/Day Years [...] encounter Miscellaneous Notes * Telephone Encounter - Marlee Krishnan DO - 02/01/2025 11:00 AM EDT Can you book sooner -within next 1-2 weeks to discuss in office? TY! * Telephone Encounter - Joanne Diaz MA - 02/01/2025 10:04 AM EDT Called and spoke with patient. She states that she is still having leg cramping, muscles jumping, after the change from Unithroid to Synthroid. Would like to know if there is something else she can try or if she needs to come in sooner than scheduled follow up. * Telephone Encounter - Jocelyn Cruz RegSched Rep - 02/01/2025 9:29 AM EDT Caller: Brynn Singh Relationship: Self Best call back number: Telephone Information: What was the call regarding: PT CALLED WANTING TO SPEAK WITH CLINICAL STAFF REGARDING MEDICATION. PLEASE ADVISE. documented in this encounter Plan of Treatment Upcoming Encounters Date Type Department Care Team (Late st Contact Info) Description 03/22/2025 10:00 AM EST Office Visit [facility] ENDOCRINOLOGY [address] [address] Marlee Krishnan, [address] [facility] [address] [place] [address] documented as of this encounter Visit Diagnoses Not on filedocumented in this encounter Care Teams Credit Product Analyst Relationship Specialty Start Date End Date Nikia Berry APRN [address] [place] [address] PCP - General Nurse Practitioner 06/01/24 documented as of this encounter
--- OUTSIDE RECORDS SUMMARY | 2025-03-11 09:57 | XMS_ITS | Encounter Summary ---
[facility] Organization [facility] Address [address] [place] [address] Care Team Providers Care Quality Assurance Monitor Name Role Phone Nikia Berry APRN Primary Care Provider [phone] Encounter Details Date Type Department Care Team (Late Contact Info) Description 12/07/2024 Results Follow-Up [facility] OBGYN [address] [place] [address] Ginny Allen MD [address] [facility] [address] [place], [place] [id number] Social History Tobacco Use Types Packs/Day Years [...] Visit [facility] ENDOCRINOLOGY [address] [facility] [address] [place] [address] Marlee Krishnan, DO [address] [facility] [address] [place] [address] documented as of this encounter Visit Diagnoses Not on filedocumented in this encounter Care Teams Quality Assurance Monitor Relationship Specialty Start Date End Date Nikia Berry APRN [facility] [place], [place] [id number] PCP - General Nurse Practitioner 06/01/24 documented as of this encounter
--- OUTSIDE RECORDS SUMMARY | 2025-03-11 09:57 | XMS_ITS | Encounter Summary ---
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 Social History [...] Telephone Encounter - Glenys Onofre) - 02/16/2025 2:36 PM EST Rx Refill Note Requested Prescriptions No prescriptions requested or ordered in this encounter Last office visit with prescribing clinician: 08/19/2024 Next office visit with prescribing clinician: 02/24/2025 Glenys Onofre (Jodi) 02/16/25, 14:36 EST documented in this encounter Plan of Treatment Upcoming Encounters Date Type Department Care Team (Late st Contact Info) Description 03/22/2025 10:00 AM EST Office Visit [facility] ENDOCRINOLOGY [address] [facility] [address] [place] [address] Marlee Krishnan, [address] [facility] [address] [facility] [address] [place] [address] documented as of this encounter Visit Diagnoses Diagnosis 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
--- OUTSIDE RECORDS SUMMARY | 2025-03-11 09:57 | XMS_ITS | Clinical Summary ---
Author Organization [facility] Address [address] [place] [address] Care Team Providers Care Rock Crushing Machine Operator Name Role Phone Nikia Berry APRN Primary Care Provider [phone] [phone] Allergies Active Allergy Reactions Criticality Noted Date Comments Sulfamethoxazole-Trimethoprim 2015 Penicillins 02/02/2016 Medications ibuprofen (ADVIL,MOTRIN) 800 MG tabletIndicatio ns:Abnormal uterine bleeding (AUB),Menorrhag ia with irregular cycle Take 1 tablet by mouth Every 8 (Eight) Hours As Needed for Moderate Pain. 30 tablet 5 Active Ferrous Sulfate ER 45 MG tablet controlled-rele aseIndications: Menorrhagia with regular cycle Take by mouth. Activ e escitalopram (Lexapro) 10 MG tabletIndicatio ns:Anxiety,Tsering rrhagia with regular cycle Take 1 tablet by mouth Daily. 30 tablet 2 5 026 Active Tranexamic Acid (Lysteda) 650 MG tabletIndicatio ns:Menorrhagia with regular cycle Take 2 tablets by mouth 3 times daily for up to 5 days only while actively bleeding 30 tablet 12 5 Active Additional Information Patient not taking.Reported on 01/24/2025 leuprolide (Lupron Depot, 3-Month,) 11.25 MG injectionIndica tions:Fibroids, submucosal,Intr amural leiomyoma of uterus,Bulky or enlarged uterus Inject 11.25 mg into the appropriate muscle as directed by prescriber Every 3 (Three) Months. Bring to Physician's office for the injection 1 kit 1 5 Active Additional Information Patient not taking.Reported on 01/24/2025 lovastatin (MEVACOR) 10 MG tablet Take 1 tablet by mouth Every Night. 5 Active Cyanocobalamin (VITAMIN B 12 PO) Take by mouth. Activ e Synthroid 50 MCG tabletIndicatio ns:Hypothyroidi sm due to Harinder thyroiditis Take 1 tablet by mouth Daily. 30 tablet 5 026 Active Synthroid 50 MCG tabletIndicatio ns:Hypothyroidi sm due to Harinder thyroiditis Take 1 tablet by mouth Daily. 30 tablet 4 5 025 Discontin ued(Reord er) Active Problems Problem Noted Date Diagnosed Date Menorrhagia with regular cycle 12/26/2022 Hypothyroidism affecting 10/11/2017 Overview (12/04/2017): TSH Gestational Age (wks) 16w6d 2.13 Annual HEMODIALYSIS PATIENT CARE SPECIALIST exam w/o problem 02/08/2016 Overview (01/09/2017): SCREENING [...] discussed: Circumcision (y / n / na): Press Box Custodian: Baby's name: Breast/bottle feeding: Placental location: Postdates discussed: Tdap discussed: Tdap vaccine received: Flu vaccine discussed: Flu vaccine received: AMA - multigravida ( in ) 10/11/2017 12/20/2024 Uterine fibroids in 10/11/2017 05/06/2024 Request for sterilization 01/09/2017 Condyloma acuminata 12/20/2016 12/05/19 18 Enlarged uterus 12/20/2016 10/11/2017 Nipple discharge 12/20/2016 12/04/2017 Vulvar pruritus 12/20/2016 12/04/2017 Encounters Date Type Department Care Team Description 02/16/2025 Refill [facility] [address] [facility] [address] [place] [address] Marlee Krishnan, DO 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 02/07/2025 Refill [facility] [address] [facility] [address] [place] [address] Marlee Krishnan, 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 02/01/2025 Telephone [facility] [address] [facility] [address] [place] [address] Marlee Krishnan, DO Med Management 02/01/2025 Telephone [facility] [address] [facility] [address] [place] [address] Ginny Herndon MD 01/31/2025 Telephone [facility] [address] [place] [address] Ginny Herndon MD 01/31/2025 Telephone [facility] [address] [facility] [address] [place] [address] Ginny Herndon MD 01/28/2025 Results Follow-Up [facility] [address] [place] [address] Ginny Herndon MD 01/25/2025 [facility] [address] [facility] [address] [place] [address] Ginny Herndon MD 01/24/2025 9:30 AM EDT Office Visit [facility] [address] [place] [address] Ginny Herndon MD Menorrhagia with regular cycle (Primary Dx); ASCUS with positive high risk HPV cervical; Bulky or enlarged uterus; Fibroids, submucosal; Abnormal uterine bleeding (AUB) 01/24/2025 Travel 12/24/2024 Telephone [facility] [address] [facility] [address] [place] [address] Ginny Herndon MD 12/23/2024 Telephone [facility] [address] [facility] [address] [place] [address] Marlee Krishnan, 12/21/2024 Telephone [facility] [address] [facility] [address] [place] [address] Ginny Herndon MD 12/20/2024 10:10 AM EDT Office Visit [facility] [address] [place] [address] Ginny Herndon MD Encounter for biopsy (Primary Dx); ASCUS with positive high risk HPV cervical; Abnormal uterine bleeding (AUB); Menorrhagia with regular cycle; Fibroids, submucosal; Intramural leiomyoma of uterus; Bulky or enlarged uterus 12/20/2024 9:30 AM EDT Ancillary Procedure [facility] [address] [place] [address] Fibroids; Menorrhagia with regular cycle 12/20/2024 Telephone [facility] [address] [place] [address] Ginny Herndon MD 12/20/2024 Telephone [facility] [address] [facility] [address] [place] [address] Ginny Herndon MD 12/20/2024 Telephone [facility] [address] [facility] [address] [place] [address] Ginny Herndon MD 12/20/2024 Travel from Last 3 Months Family History Medical [...] Pressure 129/77 01/24/2025 9:18 AM EDT Pulse 95 08/19/2024 10:28 AM EDT Temperature 36.9 C (98.5 F) 02/02/2016 11:57 AM EDT Respiratory Rate 14 01/09/2017 4:19 PM EDT Oxygen Saturation 98% 08/19/2024 10: 28 AM EDT Inhaled Oxygen Concentration - - Weight 89.3 kg (196 lb 12.8 oz) 01/24/2025 9:18 AM EDT Height 157.5 cm (5' 2.01 ) 01/24/2025 9:18 AM ED T Body Mass Index 35.98 01/24/2025 9:18 AM EDT Plan of Treatment Upcoming Encounters Date Type Department Care Team (Late st Contact Info) Description 03/22/2025 10:00 AM EST Office Visit [facility] [address] [place] [address] Marlee Krishnan, [address] [place], [place] [id number] Health Maintenance Due Date Last Done Comments [...] Procedure Name Priority Date/Time Associated Diagnosis Comments FERRITIN Routine 01/24/2025 10:46 AM EDT Menorrhagia with regular cycle IRON PROFILE Routine 01/24/2025 10:46 AM EDT Menorrhagia with regular cycle TSH Routine 01/06/2025 8:47 AM EDT 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 POCT PEFORM URINE Routine 12/20/2024 9:59 AM EDT Encounter for biopsy US NON-OB TRANSVAGINAL Routine 12/20/2024 9:31 AM EDT Fibroids Menorrhagia with regular cycle MAMMO SCREENING DIGITAL [...] Relevant to Health Maintenance Results * (ABNORMAL) Iron Profile w/o Ferritin (01/24/2025 10:46 AM EDT) TIBC 417 mcg/dL [facility] UIBC 384(H) 112 - 346 mcg/dL [facility] Iron 33(L) 37 - 145 mcg/dL [facility] Iron Saturation 8(L) 20 - 50 % [facility] Blood 01/24/2025 10:4 6 AM EDT 01/24/2025 Narrative [facility] [employer] (AMBULATORY) - 01/25/2025 6:09 AM EDT Performed at: [address] [place] [address] [id number] Clinical Staff Anesthesiologist: Chris Payton MD, Phone: [phone] Patient Fasting: N us Ginny Herndon MD LAB BLOOD ORDERABLES Final Resul t [facility] (AMBULATORY) [address] [place] [address], [place] [phone] [facility] [address] [place] [address], [place] [phone] * Ferritin (01/24/2025 10:46 AM EDT) Ferritin 30.00 13.00 - 150.00 ng/mL [facility] Comment:Results may be false ly decreased if patient taking Biotin. Blood 01/24/2025 10:4 6 AM EDT 01/24/2025 Narrative [facility] ([facility]ORY) - 01/25/2025 6:09 AM EDT Performed at: [address] [place] [address] [id number] Clinical Staff Anesthesiologist: Chris Payton MD, Phone: [phone] Patient Fasting: N us Ginny Herndon MD LAB BLOOD ORDERABLES Final Resul t Performing Organization Address City/[facility]/ZIP Co de Phone Number [facility] (AMBULATORY) [address] [place] [address], [place] [phone] [facility] [address] [place] [address], [place] [phone] * TSH (01/06/2025 8:47 AM EDT) Blood Marlee Terry Pacitti DO LAB BLOOD ORDERABLES Lauren l Result Performing Organization Address [facility]/ZIP Co de Phone Number [facility]
[address] [place] [address], * POC , Urine (12/20/2024 9:59 AM EDT) HCG, Urine, QL Negative Negative [facility] Lot Number [id number] [facility] Internal Positive Control Positive Positive, Passed [facility] Internal Negative Control Negative Negative, Passed [facility] Expiration Date ,[phone] [facility] Urine 12/20/2024 9:59 AM EDT Ginny Herndon MD POINT OF CARE TEST ORDERABLES Fi nal Result Performing Organization Address [facility] Co de Phone Number [facility]
[address] [place] [address], * US Non-ob Transvaginal (12/20/2024 9:31 AM EDT) Anatomical Region Laterality Modality Body Ultrasound 12/20/2024 9:02 AM EDT Narrative 12/20/2024 3:00 PM EDT PAT NAME: PARVIZ SINGH MED REC#: [id number] DA: [id number] PAT GEND: F PAT TYPE: O EXAM ERMELINDA: [id number] REF PHYS GINNY HERNDON Indication ======== Fibroids [...] and morphology Recommendation Follow-up as clinically indicated. [place] Machine Operator: RT Bj(R), [facility] Physician: Ginny Herndon MD, FACOG Electronically signed by: Ginny Herndon MD, FACOG at: 15:00 Procedure Note Ginny Herndon MD - 12/20/2024 PAT NAME: PARVIZ SINGH [facility] REC#: [id number] DA: [id number] PAT GEND: F PAT TYPE: O EXAM ERMELINDA: [id number] REF PHYS GINNY HERNDON Indication ======== Fibroids [...] present Endometrium:Uniform Cervix details:Nabothian cyst noted Uterus kgqz961 mm Uterus ap92 mm Uterus tr104 mm Uterus Wqf464.7 cm Endometrial thickness, total8.5 mm Uterine fibroid D163.3 mm Uterine fibroid D255.2 mm Uterine fibroid D369.3 mm Uterine fibroid twz801.721 cm Uterine fibroids findings:Posterior Uterine fibroid D136.3 [...] and morphology Recommendation Follow-up as clinically indicated. [place] Machine Operator: RT Bj(R), [facility] Physician: Ginny Herndon MD, FACOG Electronically signed by: Ginny Herndon MD, FACOG at: 15:00 us Ginny Herndon MD IMG US ORDERABLES Final Result * Mammo Screening [...] areas of architectural distortion are present. Radha Molina Pitts EXERCISE PHYSIOLOGIST CERTIFIED IMG MAMMOGRAPHY ORDERABLE S Final Result * LIQUID-BASED PAP SMEAR WITH HPV GENOTYPING REGARDLESS OF INTERPRETATION (ZAKIYA,COR,MAD) (05/06/2024 10:07 AM EST) Reference Lab Report [facility] [address] [place] [address] or [phone] Andrea Chiu M.D., Corporate Technical Recruiter PATIENT NAME LABORATORY NO. 651 PARVIZ SINGH [id number] AGE SEX SSN CLIENT REF # [facility] 49 1975 F [id number] [facility] DAVID HORTON REQUESTING M.Jamilah. [place] [address] RADHA PITTS DATE COLLECTED DATE RECEIVED DATE REPORTED 05/06/2024 05/06/2024 05/11/2024 ThinPrep Pap with Cytyc Imaging DIAGNOSIS: Epithelial cell abnormality. (ASC) Atypical squamous cells of undetermined significance. Professional interpretation rendered by Andrea Chiu M.D., F.C.A.P. at [facility], [address] [place] [address]. SPECIMEN ADEQUACY: SATISFACTORY FOR EVALUATION Transformation zone [...] of chlamydial and gonococcal disease using the [place] system. Trichomonas TRICHOMONAS VAGINALIS: Negative The Aptima Trichomonas vaginalis assay is an in vitro qualitative nucleic acid amplification test for the detection of ribosomal RNA to aid in the diagnosis of trichomoniasis. LABORER SHAFT SINKING: CAMILLA SMI(ASCP) REVIEWED, DIAGNOSED AND ELECTRONICALLY SIGNED BY: Andrea Chiu M.D., F.C.A.P. CPT CODES: 91998, 00006, 47760, 46199, 14524, 19904, 93500 05/11/2024 2:33 PM EST [facility] ThinPrep Vial Collection / Unknown 05/06/2024 10:07 AM EST 05/06/2024 10:07 AM EST Radha Pitts APRN PATHOLOGY/CYTOLOGY ORDERA BLES Final Result [facility]
[address] [place] [address], * Hepatitis C Antibody (12/04/2017 4:28 PM EDT) Hepatitis C Ab Non-Reacti ve Non-Reacti ve 12/04/2017 6:03 PM EDT [facility] Blood Venipuncture / Unknown 12/04/2017 4:28 PM EDT 12/04/2017 4:28 PM EDT us Dima Anderson MD LAB BLOOD ORDERABLES Final Result [facility]
[address] [id number], [place] [phone] from Last 3 Months or Most Recently Relevant to Health Maintenance Insurance Care Teams Rock Crushing Machine Operator Relationship Specialty Start Date End Date Nikia Berry APRN [address] [place] [address] PCP - General Nurse Practitioner 06/01/24
--- OUTSIDE RECORDS SUMMARY | 2025-03-11 09:58 | XMS_ITS | Encounter Summary ---
Author Organization [facility] Address [address] [place] [address] Care Team Providers Care Metal Sheet Roller Operator Name Role Phone KristiShaneNikia SALVADOR Primary Care Provider [phone] [phone] Encounter Details Date Type Department Care Team (Latest Contact Info) Description 01/24/2025 Travel Social History Tobacco Use Types Packs/Day [...] Description 03/22/2025 10:00 AM EST Office Visit [facility] [address] [place] [address] Marlee Krishnan, [address] [place] [address] documented as of this encounter Visit Diagnoses Not on filedocumented in this encounter Care Teams Metal Sheet Roller Operator Relationship Specialty Start Date End Date Nikia Berry APRN [address] [place] [address] PCP - General Nurse Practitioner 06/01/24 documented as of this encounter
--- OUTSIDE RECORDS SUMMARY | 2025-03-11 09:58 | XMS_ITS | Encounter Summary ---
Author Organization [facility] Address [address] [place] [address] Care Team Providers Care Rn Call Center Name Role Phone Nikia Berry APRN Primary Care Provider [phone] [phone] Encounter Details Date Type Department Care Team (Late st Contact Info) Description 01/31/2025 Telephone [facility] [address] [place] [address] Ginny Allen MD [address] [facility] [address] [place] [id number] Social History Tobacco Use Types Packs/Day Years [...] Telephone Encounter - Liana Klein RN - 01/31/2025 4:57 PM EDT Called to speak with patient. Received message from front desk supervisor staff that patient had left a message wanting to cancel her procedure in the morning with Dr Allen. Left patient a message. Informed Dr Allen and Tomasa the engineer automated equipment. -LianaRn documented in this encounter Plan of Treatment Upcoming Encounters Date Type Department Care Team (Late st Contact Info) Description 03/22/2025 10:00 AM EST Office Visit [facility] [address] [facility] [address] [place] [address] Marlee Krishnan, [address] [facility] [address] [place], [place] [id number] documented as of this encounter Visit Diagnoses Not on filedocumented in this encounter Care Teams Rn Call Center Relationship Specialty Start Date End Date Nikia Berry APRN [address] [place], [place] [id number] PCP - General Nurse Practitioner 06/01/24 documented as of this encounter
[2025-03-11 10:26] LABS: Hemoglobin 14.3 g/dL (12.2-16.2)
[2025-03-11 11:18] LABS: Thyroid Stimulating Hormone 3.60 uIU/mL (0.465-4.68)
[2025-03-11 11:29] LABS: Iron 85 ug/dL (37-170)
[2025-03-11 11:38] LABS: Total Iron Binding Capacity 299 ug/dL (265-497)
[2025-03-11 11:54] LABS: Free T4 (Free Thyroxine) 0.94 ng/dl (0.78-2.19)
[2025-03-11 12:05] LABS: Ferritin 15.0 ng/ml (11.1-264)
== END 2025-03-11 23:59 | disposition home or self-care (01) ==
PROVIDERS: Internal Medicine Endocrinology, Diabetes & Metabolism; PCP Family Medicine Addiction Medicine; Visit Provider Family Medicine Addiction Medicine
DX: E06.3 Autoimmune thyroiditis (principal); Z01.89 Encounter for other specified special examinations
CPT/HCPCS: 36415; 82728; 83540; 83550; 84439; 84443; 84445; 84480; 85018; 86376; 86800